=== PATIENT | male | born 1970 | race Caucasian/White ===

== ENCOUNTER 2020-01-25 15:44 | Outpatient (CLI) | payer OTHER, SELFPAY ==
[2020-01-27 06:44] LABS: SARS-CoV-2 RNA PCR Negative
== END 2020-01-25 15:45 | disposition home or self-care (01) ==
LOC: CHSLAB 15:55
PROVIDERS: PCP Family Medicine; Visit Provider Family Medicine
DX: Z20.828 Contact with and (suspected) exposure to other viral communicable diseases (principal)
CPT/HCPCS: 87635; C9803; U0003

== ENCOUNTER 2020-02-09 14:33 | Outpatient (CLI) | payer OTHER, SELFPAY ==
[2020-02-09 15:26] LABS: SARS-CoV-2 Ag Negative (Negative)
== END 2020-02-09 14:34 | disposition home or self-care (01) ==
LOC: CHSLAB 14:35
PROVIDERS: PCP Family Medicine; Visit Provider Family Medicine
DX: Z20.828 Contact with and (suspected) exposure to other viral communicable diseases (principal)
CPT/HCPCS: 87426

== ENCOUNTER 2020-05-23 09:43 | Emergency (ER) | payer OTHER, SELFPAY ==
[2020-05-23 09:43] VITALS: BP 157/102; PULSE 67; RESP 16; TEMP 37; O2SAT 98
[2020-05-23] MEDS: ATROPINE SULFATE 1% OPHTH SOLN 5 ML BOTTLE 1 DROP EACH EYE (10:10)
[2020-05-23] MEDS: FLUORESCEIN SOD 1 MG/STRIP EACH EYE (10:10)
[2020-05-23] MEDS: TETRACAINE HCL 0.5% OPHTH SOLN 4 ML BTL 1 DROP EACH EYE (10:10)
[2020-05-23] MEDS: DACRIOSE EYE IRRIGATION 118 ML BOTTLE 10 ML EACH EYE (10:10)
--- NOTE | 2020-05-23 11:19 | ED.EYEPROB ---
HPI - Eye Problem General Source: patient and other (friend comes in with him ) Mode of arrival: ambulatory Limitations: no limitations History of Present Illness HPI Narrative: Patient comes in after watching welding yesterday with the naked eye. He has had Eye pain since he got up this am about 9am. This is described as burning with sensitivity to light. He believes it was precipitated by him watching welding yesterday. Nothing has made this discomfort better or worse at home. This is an ongoing discomfort. chief complaint: eye pain, eye redness and eye injury Onset (ago): minute(s) Onset description: sudden and other (with wakening) Duration: constant Eye Symptoms: burning, foreign body sensation and photophobia Place: work Mechanism: UV exposure Severity: moderate Severity scale (1-10): 5 If Pain, Quality: burning and aching Associated symptoms: none Treatments Prior to Arrival: irrigated eye and NSAID (tetracaine dropps, equal to a 4-5 drops, was used on sides) Related Data Home Medications Medication Instructions Recorded Confirmed amlodipine 10 mg PO DAILY 05/23/20 05/23/20 hydrocodone-acetaminophen 1 tablet PO PRN 05/23/20 05/23/20 Allergies Allergy/AdvReac Type Severity Reaction Status Date / Time Penicillins Allergy Unknown Verified 05/23/20 10:34 Review of Systems Review of Systems: ROS unobtainable: Yes unobtainable due to endotracheal tube Constitutional: Constitutional: Reports no additional constitutional complaints Eyes: Eyes: Reports no additional eye complaints ENT: Reports system reviewed and no additional complaints, except as documented Cardiovascular: Cardiovascular: Reports no additional cardiovascular complaints Respiratory: Respiratory: Reports no additional respiratory complaints Gastrointestinal: Gastrointestinal: Reports no additional gastrointestinal complaints Genitourinary: Genitourinary: Reports no additional male genitourinary complaints Musculoskeletal: Musculoskeletal: Reports no additional musculoskeletal complaints Integumentary/Breasts: Skin/Breast: Reports system reviewed and no additional complaints, except as docu Neurologic: Reports system reviewed and no additional complaints, except as documented Psychiatric: Psychiatric: Reports no additional psychiatric complaints Endocrine: Endocrine: Reports no additional endocrine complaints Hematologic/Lymphatic: Hematologic/Lymphatic: Reports no additional hematologic/lymphatic complaints Allergic/Immunologic: Allergic/Immunologic: Reports no additional allergic/immunologic complaints [facility] Surgical History Surgical History H/O hernia repair No significant past surgical history Family History Family History Mother CAD (coronary artery disease) Social History Social History (Updated 05/24/20 @ 01:43 by Rey Tovar MD) Smoking status: Never smoker Smokeless tobacco user: chewing tobacco Alcohol intake: never Substance use: never Substance use type: does not use and crack/cocaine Living arrangements: with family Occupation/Education: occupation Gender identity (if verbalized by the patient): Male Sexual Orientation (if Verbalized by the Patient): Straight or Heterosexual Exam Const: General: no acute distress and confusion Orientation/consciousness: patient oriented x3 HENMT: Head: normal to inspection and contusion Ears: external ears normal Face and sinus: normal facial exam Eyes: Direct Ophthalmoscopy: photophobia Other: conjunctivae inflamed bilaterally. I can see a small area on his retina that also appears inflamed. He has no significant uptake of dye with fluorescein exam. He did appear to have superficial corneal abrasions bilaterally. He confirmed to me that he had been rubbing his eyes. Neck: Neck: normal visual inspection Chest: Chest palpation & inspect
[2020-05-23] MEDS: ERYTHROMYCIN OPHTH OINTMENT 3.5 GM TUBE 1 APPLIC EACH EYE (11:33)
[2020-05-23 11:54] VITALS: BP 126/79; PULSE 65; RESP 14; O2SAT 100
== END 2020-05-23 12:04 | disposition home or self-care (01) ==
PROVIDERS: Emergency Provider Emergency Medicine; PCP Family Medicine
DX: H16.133 Photokeratitis, bilateral (principal); S05.00XA Injury of conjunctiva and corneal abrasion without foreign body, unspecified eye, initial encounter
CPT/HCPCS: 99283; A9270

== ENCOUNTER 2020-10-29 15:38 | Outpatient (CLI) | payer OTHER, SELFPAY ==
[2020-10-29 16:42] LABS: SARS-CoV-2 Ag Negative (Negative)
== END 2020-10-29 15:39 | disposition home or self-care (01) ==
PROVIDERS: PCP Family Medicine; Visit Provider Nurse Practitioner Family
DX: Z20.822 Contact with and (suspected) exposure to COVID-19 (principal)
CPT/HCPCS: 87426; C9803

== ENCOUNTER 2021-02-04 09:53 | Outpatient (CLI) | payer OTHER, SELFPAY ==
--- NOTE | 2021-02-04 11:00 | NEURO_ITS ---
Impression: # Complains of numbness of left hand. # Left evolving Carpal Tunnel Syndrome. # Left mild ulnar neuropathy. ` # Normal needle/EMG exam. Nerve Conduction Studies Anti Sensory Summary Table Stim Site NR Peak (ms) P-T Amp (?V) Site1 Site2 Delta-P (ms) Dist (cm) Morgan (m/s) Left Median Anti Sensory (2-3nd Digit) Wrist 3.0 58.3 Wrist 2-3nd Digit 3.0 14.0 47 Wrist 3.0 60.4 Wrist 2-3nd Digit 3.0 14.0 47 Left Radial Anti Sensory (Base 1st Digit) Wrist 2.0 47.3 Wrist Base 1st Digit 2.0 0.0 Left Ulnar Anti Sensory (5th Digit) Wrist 2.7 64.3 Wrist 5th Digit 2.7 14.0 52 Motor Summary Table Stim Site NR Onset (ms) O-P Amp (mV) Site1 Site2 Delta-0 (ms) Dist (cm) Morgan (m/s) Left Median Motor (Abd Poll Brev) Wrist 3.4 3.1 Elbow Wrist 4.7 30.0 64 Elbow 8.1 4.4 Left Ulnar Motor (Abd Dig Minimi) Wrist 2.3 4.7 A Elbow Wrist 5.7 30.0 53 A Elbow 8.0 4.0 B Elbow Wrist 4.5 26.0 58 B Elbow 6.8 5.0 F Wave Studies NR F-Lat (ms) L-R F-Lat (ms) Left Median (Mrkrs) (Abd Poll Brev) 29.18 Left Ulnar (Mrkrs) (Abd Dig Min) 29.73 EMG Side Muscle Nerve Root Ins Act Fibs Amp Dur Recrt Comment Left 1stDorInt Ulnar C8-T1 Nml Nml Nml Nml Nml Left Ext Indicis Radial (Post Int) C7-8 Nml Nml Nml Nml Nml Left Ext Digitorum Radial (Post Int) C7-8 Nml Nml Nml Nml Nml Left BrachioRad Radial C5-6 Nml Nml Nml Nml Nml Left PronatorTeres Median C6-7 Nml Nml Nml Nml Nml Left Abd Poll Brev Median C8-T1 Nml Nml Nml Nml Nml Left ABD Dig Min Ulnar C8-T1 Nml Nml Nml Nml Nml MTDD
== END 2021-02-04 09:54 | disposition home or self-care (01) ==
LOC: ANHNEURO 10:03
PROVIDERS: PCP Family Medicine; Visit Provider Family Medicine
DX: G56.22 Lesion of ulnar nerve, left upper limb (principal); G56.02 Carpal tunnel syndrome, left upper limb
CPT/HCPCS: 95886; 95909

== ENCOUNTER 2021-02-04 16:14 | Outpatient (CLI) | payer OTHER, SELFPAY ==
[2021-02-04 17:51] LABS: Influenza A QL RT-PCR Negative (Negative); Influenza B QL RT-PCR Negative (Negative); SARS-CoV-2 RNA PCR Positive (Negative)
== END 2021-02-04 16:15 | disposition home or self-care (01) ==
LOC: CHSLAB 16:19
PROVIDERS: PCP Family Medicine; Visit Provider Family Medicine
DX: U07.1 COVID-19 (principal); R05.9 Cough, unspecified
CPT/HCPCS: 87502; C9803; U0003; U0005

== ENCOUNTER 2021-02-08 16:08 | Outpatient (CLI) | payer OTHER, SELFPAY ==
[2021-02-08] MEDS: ACETAMINOPHEN 325 MG TABLET 650 MG PO (17:06)
[2021-02-08] MEDS: FAMOTIDINE 20 MG TABLET PO (17:06)
[2021-02-08] MEDS: diphenhydrAMINE HCl CAP 25 MG CAPSULE PO (17:06)
[2021-02-08 18:30] VITALS: BP 132/74; PULSE 88; RESP 20; TEMP 37.1; O2SAT 99
== END 2021-02-08 16:09 | disposition home or self-care (01) ==
PROVIDERS: PCP Family Medicine; Visit Provider Family Medicine
DX: U07.1 COVID-19 (principal); I10 Essential (primary) hypertension
CPT/HCPCS: A9270; J7050; M0243; Q0244

== ENCOUNTER 2021-04-12 12:20 | Outpatient (CLI) | payer OTHER, SELFPAY ==
[2021-04-12 14:11] LABS: Influenza A QL RT-PCR Positive (Negative); Influenza B QL RT-PCR Negative (Negative); SARS-CoV-2 RNA PCR Negative (Negative)
== END 2021-04-12 12:21 | disposition home or self-care (01) ==
LOC: CHSLAB 12:22
PROVIDERS: PCP Family Medicine; Visit Provider Family Medicine
DX: J00 Acute nasopharyngitis [common cold] (principal); Z20.822 Contact with and (suspected) exposure to COVID-19
CPT/HCPCS: 36415; 87081; 87502; 87880; C9803; U0003; U0005

== ENCOUNTER 2021-05-03 14:57 | Outpatient (CLI) | payer OTHER, SELFPAY ==
--- NOTE | ~2021-05-03 | XR_ITS ---
EXAMINATION: XR chest 2V DATE: 05/03/2021 15:12 INDICATION: Cough. TECHNIQUE: Frontal and lateral views of the chest were obtained. COMPARISON: None. FINDINGS: The chest demonstrates clear lungs without pneumonia, pleural effusion, or pneumothorax. Th e heart size is normal. IMPRESSION: 1. No acute cardiopulmonary disease. Reviewed, dictated and finalized at location A. BUILDER HELPER
== END 2021-05-03 14:58 | disposition home or self-care (01) ==
LOC: CHSIMG 14:58
PROVIDERS: PCP Family Medicine; Visit Provider Family Medicine
DX: R05.9 Cough, unspecified (principal)
CPT/HCPCS: 71046

== ENCOUNTER 2021-07-05 14:30 | Outpatient (CLI) | payer OTHER, SELFPAY ==
[2021-07-05 14:56] LABS: Basophils Absolute Auto 0.05 K/mm3 (0.00-0.10); Basophils Percent Auto 0.9 % (0.0-1.0); Eosinophils Absolute Auto 0.18 K/mm3 (0.02-0.50); Eosinophils Percent Auto 3.1 % (1.0-6.0); Hematocrit 41.2 % (40.0-54.0); Hemoglobin 13.2 g/dL (14.0-18.0); Immature Granulocyte Absolute 0.01 K/mm3 (0.00-0.00); Immature Granulocyte Percent A 0.2 % (0.0-0.0); Lymphocytes Absolute Auto 1.59 K/mm3 (1.10-4.50); Lymphocytes Percent Auto 27.1 % (18.0-42.0); Mean Corpuscular Hemoglobin 29.9 pg (27.0-31.0); Mean Corpuscular Volume 93.2 fL (78.0-102.0); Monocytes Absolute Auto 0.63 K/mm3 (0.10-0.90); Monocytes Percent Auto 10.7 % (2.0-11.0); Neutrophils Absolute Auto 3.4 K/mm3 (1.7-7.2); Platelet Count Result 375 K/mm3 (150-420); Red Blood Count 4.42 M/mm3 (4.70-6.10); Red Cell Distribution Width 13.5 % (11.6-14.4); White Blood Count 5.9 K/mm3 (4.8-10.8)
[2021-07-05 15:00] LABS: Add Urine Microscopic? NO; Appearance Urine Clear (Clear); Bilirubin Urine Negative (Negative); Blood Urine Negative (Negative); Color Urine Yellow (Yellow); Glucose Urine UA Negative (Negative); Ketones Urine Negative (Negative); Leukocyte Esterase Ur Negative (Negative); Nitrate Urine Negative (Negative); Protein Urine Negative (Negative); Urobilinogen Urine 0.2 mg/dL (0.2-1.0)
[2021-07-05 15:07] LABS: Creatinine Urine 192.17 mg/dL (40-278); MALB Creatinine Ratio 8.6 mg/g (0-30); Microalbumin Urine Random 16.7 mg/L
[2021-07-05 15:36] LABS: Alanine Aminotransferase 25 U/L (16-63); Albumin Level 3.6 g/dL (3.4-5.0); Alkaline Phosphatase 103 U/L (46-116); Anion Gap 6 mmol/L (8-16); Aspartate Amino Transferase 18 U/L (15-37); Bilirubin,Total 0.3 mg/dL (0.00-1.00); Blood Urea Nitrogen 8 mg/dL (7-18); Calcium 8.9 mg/dL (8.5-10.1); Carbon Dioxide 30 mmol/L (21-32); Chloride 102 mmol/L (98-108); Estimated Glomerular Filt Rate > 60; Glucose 98 mg/dL (70-99); Osmolality Calculated 284 mOsm/kg (285-295); Potassium 3.8 mmol/L (3.5-5.1); Sodium 138 mmol/L (136-145); Total Protein 7.4 g/dL (6.4-8.2)
== END 2021-07-05 14:31 | disposition home or self-care (01) ==
LOC: CHSLAB 14:31
PROVIDERS: PCP Family Medicine; Visit Provider Family Medicine
DX: I10 Essential (primary) hypertension (principal)
CPT/HCPCS: 36415; 80053; 81003; 82043; 84443; 85025

== ENCOUNTER 2021-07-19 12:53 | Outpatient (CLI) | payer OTHER, SELFPAY | END 2021-07-19 12:54 | disposition home or self-care (01) | LOC: CHSCARD 12:57 | PROVIDERS: PCP Family Medicine; Visit Provider Family Medicine | DX: R06.2 Wheezing (principal) | CPT/HCPCS: 94060; 94726; 94729 ==

== ENCOUNTER 2022-03-21 11:28 | Outpatient (CLI) | payer OTHER, SELFPAY ==
--- NOTE | ~2022-03-21 | XR_ITS ---
EXAMINATION:XR cervical spine 4-5V DATE: 03/21/2022 11:52 INDICATION: Neck pain TECHNIQUE: AP, lateral, bilateral oblique, lateral swimmers and odontoid views of the cervical spine are provided. COMPARISON: None FINDINGS: Alignment is normal. The odontoid process is intact. No fracture is identified. Vertebral b yazmin heights are maintained. There is mild loss of intervertebral disc space height at C5-6. Preverteb ral soft tissues are normal. IMPRESSION: 1. Mild cervical spondylosis without acute findings. Reviewed, dictated and finalized at location B. ASSOCIATE
== END 2022-03-21 11:29 | disposition home or self-care (01) ==
LOC: CHSIMG 11:29
PROVIDERS: PCP Family Medicine; Visit Provider Family Medicine
DX: M54.2 Cervicalgia (principal); M43.02 Spondylolysis, cervical region
CPT/HCPCS: 72050

== ENCOUNTER 2022-07-07 13:20 | Outpatient (CLI) | payer OTHER, SELFPAY ==
[2022-07-07 13:44] LABS: Amphetamine Screen Urine Negative (Negative); Barbiturate Screen Urine Negative (Negative); Benzodiazepines Screen Urine Negative (Negative); Cannabinoid Screen Urine Negative (Negative); Cocaine Screen Urine Negative (Negative); Methadone Screen Urine Negative (Negative); Opiate Screen Urine Negative (Negative); Phencyclidine Screen Urine Negative (Negative)
== END 2022-07-07 13:21 | disposition home or self-care (01) ==
LOC: CHSLAB 13:23
PROVIDERS: PCP Family Medicine; Visit Provider Family Medicine
DX: Z79.891 Long term (current) use of opiate analgesic (principal)
CPT/HCPCS: 80307

== ENCOUNTER 2022-12-12 21:43 | Emergency (ER) | payer OTHER, SELFPAY ==
--- NOTE | ~2022-12-12 | XR_ITS ---
EXAMINATION: XR chest 2V DATE: 12/12/2022 22:19 INDICATION: Left anterior chest pain. TECHNIQUE: Frontal and lateral views of the chest were obtained. COMPARISON: Chest 2 views 05/03/2021 FINDINGS: A calcified right lung nodule is consistent with old granulomatous disease. There is no pne umonia, pleural effusion, or pneumothorax. The heart size is normal. IMPRESSION: 1. No acute cardiopulmonary disease. Reviewed, dictated and finalized at location E.
--- NOTE | 2022-12-12 21:45 | ECG_ITS ---
Measurements Intervals [place] Rate: 100 P: 79 SC: 188 QRS: -22 QRSD: 82 T: 123 QT: 350 QTc: 451 Interpretive Statements SINUS TACHYCARDIA LEFT ATRIAL ENLARGEMENT [-0.15mV P-WAVE IN V1/V2] LOW QRS VOLTAGE IN PRECORDIAL LEADS [QRS DEFLECTION < 1.0 mV IN CHEST LEADS] POSSIBLE RIGHT VENTRICULAR CONDUCTION DELAY [RSR (QR) IN V1/V2] POSSIBLE ANTERIOR MYOCARDIAL INFARCTION , PROBABLY OLD [30 ms Q WAVE IN V3/V4, OR R < 0.2 mV IN V4] ABNORMAL ECG NO PREVIOUS ECG AVAILABLE FOR COMPARISON Electronically Signed On 12-13-2022 8:36:27 CDT by Holden Briggs M.D.
[2022-12-12 21:47] VITALS: PULSE 104; RESP 18; TEMP 36.3; O2SAT 96
--- NOTE | 2022-12-12 21:56 | ED.CHESTPAIN ---
HPI - Chest Pain General Chief Complaint: Chest Pain Stated Complaint: Chest Pain Time Seen by Provider: 12/12/22 21:45 Source: patient, family and EMS Mode of arrival: EMS Limitations: no limitations History of Present Illness HPI narrative: Patient is a 52-year-old male with left-sided chest pain after being handcuffed by police this evening. Police were at his house arresting him and he started to have some chest pain and got diaphoretic. EMS was called and patient was given oxygen and Zofran and nitroglycerin and the episode subsided. Patient is here in the emergency room for evaluation of the chest pain. He also has reproducible chest pain for his left shoulder and chest wall pain. patient got aspirin with EMS. MD complaint: chest pain and chest discomfort Pertinent past history: other ( No CAD or prior MIs) Onset (ago): hour(s) (1) Timing of current episode: episodic Prior episodes: No Onset: during exertion Pain location: left chest Pain radiation: left shoulder Severity: moderate ( resolved at time emergency room; pain on episode was 4/10) Quality: sharp and burning Relieving factors: nitroglycerin and other (oxygen; removal of handcuffs pulling on the left shoulder) Exacerbating factors: stress Treatment prior to arrival: aspirin, nitroglycerin and oxygen Risk Factors Coronary artery disease risk factors: hypertension Thoracic aortic dissection risk factors: none Related Data Home Medications Medication Instructions Recorded Confirmed amlodipine 10 mg tablet 10 mg PO DAILY 05/23/20 12/12/22 Allergies Allergy/AdvReac Type Severity Reaction Status Date / Time Penicillins Allergy Unknown Verified 05/23/20 10:34 Sulfa (Sulfonamide Allergy Unknown Verified 12/12/22 21:46 Antibiotics) Review of Systems Review of Systems: All systems reviewed & are unremarkable except as noted in HPI and below Constitutional: Constitutional: Reports no additional constitutional complaints Eyes: Eyes: Reports no additional eye complaints ENT: Reports system reviewed and no additional complaints, except as documented Cardiovascular: Cardiovascular: Reports no additional cardiovascular complaints Respiratory: Respiratory: Reports no additional respiratory complaints Gastrointestinal: Gastrointestinal: Reports no additional gastrointestinal complaints Genitourinary: Genitourinary: Reports no additional male genitourinary complaints Musculoskeletal: Musculoskeletal: Reports no additional musculoskeletal complaints Integumentary/Breasts: Skin/Breast: Reports system reviewed and no additional complaints, except as docu Neurologic: Reports system reviewed and no additional complaints, except as documented Psychiatric: Psychiatric: Reports no additional psychiatric complaints Endocrine: Endocrine: Reports no additional endocrine complaints Hematologic/Lymphatic: Hematologic/Lymphatic: Reports no additional hematologic/lymphatic complaints Allergic/Immunologic: Allergic/Immunologic: Reports no additional allergic/immunologic complaints PMFSH Surgical History Surgical History H/O hernia repair No significant past surgical history Family History Family History Mother CAD (coronary artery disease) Social History Social History Smoking status: Never smoker Smokeless tobacco user: chewing tobacco Alcohol intake: never Substance use: never Substance use type: does not use and crack/cocaine Living arrangements: with family Occupation/Education: occupation Gender identity (if verbalized by the patient): Male Sexual Orientation (if Verbalized by the Patient): Straight or Heterosexual Exam Const: General: healthy appearing Nutritional Appearance: well nourished Orientation/consciousness: patient oriented x3 HENMT: Head: normal
[2022-12-12 22:08] LABS: Basophils Absolute Auto 0.06 K/mm3 (0.00-0.10); Basophils Percent Auto 0.8 % (0.0-1.0); Eosinophils Absolute Auto 0.05 K/mm3 (0.02-0.50); Eosinophils Percent Auto 0.6 % (1.0-6.0); Hemoglobin 13.5 g/dL (14.0-18.0); Immature Granulocyte Absolute 0.02 K/mm3 (0.00-0.00); Immature Granulocyte Percent A 0.3 % (0.0-0.0); Lymphocytes Absolute Auto 1.51 K/mm3 (1.10-4.50); Lymphocytes Percent Auto 18.9 % (18.0-42.0); Mean Corpuscular HGB Conc 32.1 g/dL (32.0-36.0); Mean Corpuscular Hemoglobin 29.1 pg (27.0-31.0); Mean Corpuscular Volume 90.5 fL (78.0-102.0); Monocytes Absolute Auto 0.57 K/mm3 (0.10-0.90); Monocytes Percent Auto 7.2 % (2.0-11.0); Neutrophils Absolute Auto 5.8 K/mm3 (1.7-7.2); Neutrophils Percent Auto 72.2 % (50.0-70.0); Platelet Count Result 419 K/mm3 (150-420); Red Blood Count 4.64 M/mm3 (4.70-6.10); Red Cell Distribution Width 13.8 % (11.6-14.4)
[2022-12-12 22:22] LABS: D Dimer 0.26 mg/L (0.19-0.50); Partial Thromboplastin Time 26.3 SEC (23.90-30.70); Prothrombin Time 11.1 Seconds (9.50-12.10)
[2022-12-12 22:29] LABS: Alanine Aminotransferase 21 U/L (16-63); Albumin Level 3.4 g/dL (3.4-5.0); Alkaline Phosphatase 94 U/L (46-116); Anion Gap 9 mmol/L (8-16); Aspartate Amino Transferase 12 U/L (15-37); Bilirubin,Total 0.2 mg/dL (0.00-1.00); Blood Urea Nitrogen 6 mg/dL (7-18); Calcium 8.9 mg/dL (8.5-10.1); Carbon Dioxide 24 mmol/L (21-32); Chloride 106 mmol/L (98-108); Estimated CRCL calculation 97 ml/min; Estimated Glomerular Filt Rate > 60; Glucose 139 mg/dL (70-99); Lipase 16 U/L (16-77); NT Pro B Type Natriuretic Pept 57 pg/mL (0-125); Osmolality Calculated 287 mOsm/kg (285-295); Potassium 3.4 mmol/L (3.5-5.1); Sodium 139 mmol/L (136-145); Troponin I 54.2 ng/L (0.00-60.4)
[2022-12-12 22:44] VITALS: BP 144/74
[2022-12-12] MEDS: POTASSIUM CHLORIDE 20 MEQ ER TABLET PO (22:52)
[2022-12-12 23:34] VITALS: BP 120/76; PULSE 89; RESP 18; O2SAT 99
[2022-12-13 00:28] LABS: Troponin I 61.4 ng/L (0.00-60.4)
[2022-12-13] MEDS: MORPHINE SULFATE (*CRX) 2 MG/ML INJ IV PUSH (00:54)
--- NOTE | 2022-12-13 04:35 | PC.NURSE ---
Report given to Hilda GARCIA at [facility], Pt accepted to room 729 bed 1. [facility] declined transfer @ 1217. [facility] was contacted @ 0154 f9or transfer.
[2022-12-13 05:00] VITALS: BP 129/93; PULSE 79; RESP 18; TEMP 36.4; O2SAT 98
== END 2022-12-13 05:00 | disposition short-term general hospital (02) ==
PROVIDERS: Emergency Provider Emergency Medicine; PCP Family Medicine
DX: R07.9 Chest pain, unspecified (principal); F17.220 Nicotine dependence, chewing tobacco, uncomplicated
CPT/HCPCS: 36415; 71046; 80053; 83690; 83735; 83880; 84484; 85025; 85380; 85610; 85730; 93005; 96374; 99285; A9270; J2270

== ENCOUNTER 2023-04-05 01:20 | Emergency (ER) | payer OTHER, SELFPAY ==
[2023-04-05 01:24] VITALS: BP 150/97; PULSE 75; RESP 20; TEMP 36.6; O2SAT 98
--- NOTE | 2023-04-05 01:44 | ED.GENADULT ---
HPI - General Adult General Chief complaint: Upper Respiratory Infection Stated complaint: Cough/Ear Ache Time Seen by Provider: 04/05/23 01:25 History of Present Illness HPI narrative: Jonas presented to the ED with pain in his frontal sinuses, worse when leaning forward as well as a sense of fullness in his ears. There is no CP, dyspnea, or fevers reported. He recently finished a Z pack but symptoms became worse. He is allergic to sulfa and penicillin. Related Data Home Medications Medication Instructions Recorded Confirmed amlodipine 10 mg tablet 10 mg PO DAILY 05/23/20 04/05/23 Allergies Allergy/AdvReac Type Severity Reaction Status Date / Time Penicillins Allergy Unknown Verified 05/23/20 10:34 Sulfa (Sulfonamide Allergy Unknown Verified 12/12/22 21:46 Antibiotics) Review of Systems Review of Systems: All systems reviewed & are unremarkable except as noted in HPI and below PMFSH Surgical History Surgical History H/O hernia repair No significant past surgical history Family History Family History Mother CAD (coronary artery disease) Social History Social History Smoking status: Never smoker Smokeless tobacco user: chewing tobacco Alcohol intake: never Substance use: never Substance use type: does not use and crack/cocaine Living arrangements: with family Occupation/Education: occupation Gender identity (if verbalized by the patient): Male Sexual Orientation (if Verbalized by the Patient): Straight or Heterosexual Exam Const: General: cooperative, healthy appearing, comfortable, no acute distress, well developed, alert, awake and Physically active Orientation/consciousness: oriented to person, oriented to place and oriented to time HENMT: Head: normal to inspection, normocephalic and atraumatic Ears: hearing grossly normal bilaterally and external ears normal Face/Nose/Sinus: Normal external nose present Other: frontal sinuses are TTP. External ear canal wnl bilaterally. TM within normal limits bilaterally Eyes: General: appearance normal, both eyes and all related structures Periorbital: periorbital findings normal Sclera: sclerae normal Pupils: Equal, round and reactive pupils present Neck: Neck: normal visual inspection Chest: Chest palpation & inspection: normal inspection of the chest Resp: Effort & Inspection: normal respiratory effort, able to speak in complete sentences and no respiratory distress Auscultation: clear to auscultation bilaterally Cardio: Jugular venous distension: no JVD Rate: regular rate Rhythm: regular rhythm GI: Inspection: normal to inspection GI Palp: Yes Soft to palpation Auscultation: normal bowel sounds Skin: General skin exam: normal color and no rashes or lesions noted Neuro: General: oriented to person, oriented to place and oriented to time Cranial nerves: Yes Equal, round and reactive pupils present Extrem: General: normal to inspection Course Vital Signs Vital signs: Vital Signs Temperature 98 F 04/05/23 01:24 Pulse Rate 75 04/05/23 01:24 Respiratory Rate 20 04/05/23 01:24 Blood Pressure 150/97 H 04/05/23 01:24 Pulse Oximetry 98 04/05/23 01:24 Oxygen Delivery Room Air 04/05/23 01:24 Temperature 98 F 04/05/23 01:24 Pulse Rate 75 04/05/23 01:24 Respiratory Rate 20 04/05/23 01:24 Blood Pressure 150/97 H 04/05/23 01:24 Pulse Oximetry 98 04/05/23 01:24 Oxygen Delivery Room Air 04/05/23 01:24 Medical Decision Making Vital Signs Vital Signs: Vital Signs Temperature 98 F 04/05/23 01:24 Pulse Rate 75 04/05/23 01:24 Respiratory Rate 20 04/05/23 01:24 Blood Pressure 150/97 H 04/05/23 01:24 Pulse Oximetry 98 04/05/23 01:24 Oxygen Delivery Room Air 04/05/23 01:24 Temperature 98 F
[2023-04-05 01:50] VITALS: BP 137/86; PULSE 78; RESP 18; O2SAT 97
== END 2023-04-05 01:53 | disposition home or self-care (01) ==
PROVIDERS: Emergency Provider Family Medicine; PCP Family Medicine
DX: J32.9 Chronic sinusitis, unspecified (principal); F17.220 Nicotine dependence, chewing tobacco, uncomplicated
CPT/HCPCS: 99283

== ENCOUNTER 2023-08-17 19:59 | Emergency (ER) | payer OTHER, SELFPAY ==
--- NOTE | ~2023-08-17 | CT_ITS ---
EXAMINATION: CT lumbar spine wo con DATE: 08/17/2023 20:27 INDICATION: left-sided radiculopathy X 5 DAYS/NO TRAUMA . TECHNIQUE: Computed tomography (CT) of the lumbar spine was performed without intravenous contrast. A utomated exposure control and iterative reconstruction technique were employed. The dose-length produ ct was 1511.44 mGy-cm. COMPARISON: None. FINDINGS: 5 nonrib-bearing lumbar-type vertebral bodies. Pedicles intact. Normal vertebral body align ment. Vertebral body heights preserved. Mild anterior wedge deformity at the thoracolumbar junction i s likely physiologic. Multilevel mild degenerative disc disease and facet arthropathy. Implant reserv oir in the left pelvis. IMPRESSION: No acute fracture or traumatic malalignment in the lumbar spine. No severe central canal or neural fo raminal narrowing. Reviewed, dictated and finalized at location K. IMPRESSION: No acute fracture or traumatic malalignment in the lumbar spine. No severe cent ral canal or neural foraminal narrowing.
[2023-08-17 20:03] VITALS: BP 153/95; PULSE 95; RESP 18; TEMP 36.4; O2SAT 98
--- NOTE | 2023-08-17 20:03 | ED.GENADULT ---
HPI - General Adult General Chief complaint: Back Pain/Injury Stated complaint: back pain Time Seen by Provider: 08/17/23 20:03 As per history of present illness. [facility] was reviewed. . History of Present Illness HPI narrative: history of present illness: Informant is patient. Chief complaint of low back pain with radiation into the left leg. Patient reports he has got a known bulging disc, he has had problems for several years. He says for the past 5 days the symptoms have flared up or is having more pain shooting down his left leg. He denies any loss of bowel or bladder control. He has had no saddle numbness. Problem located low back with radiation into the left lower extremity. It is like radiculopathy. Has occurred before the patient feels like it is a bit worse tonight. Patient does have somebody to drive him if he receives a pain shot. Moderate severity. Patient feels it is caused by a herniated lumbar disc. Movement does make it worse. Associated symptoms: No reported cough or fever. Related Data Home Medications Medication Instructions Recorded Confirmed amlodipine 10 mg tablet 10 mg PO DAILY 05/23/20 08/17/23 Allergies Allergy/AdvReac Type Severity Reaction Status Date / Time doxycycline Allergy Swelling Verified 08/17/23 20:03 Penicillins Allergy Unknown Verified 05/23/20 10:34 Sulfa (Sulfonamide Allergy Unknown Verified 12/12/22 21:46 Antibiotics) Review of Systems Review of Systems: REVIEW OF SYSTEMS- constitutional: No fevers, no chills, no sweats eye: No recent visual problems ENT: No ear pain, no nasal congestion, no sore throat respiratory: No shortness of breath, no cough cardiovascular: No chest pain, no palpitations, no syncope gastrointestinal: No nausea, no vomiting, no diarrhea alyson/lymph: No bruising tendency, no swollen lymph glands endocrine: No excessive thirst, no excessive hunger muscle skeletal: Complaining of low back pain with radiation into the left hip and leg. integumentary: No rash, no pruritus, no abrasions neurologic: Alert and oriented x4 psychiatric: No anxiety, no depression PMFSH Surgical History Surgical History H/O hernia repair No significant past surgical history Family History Family History Mother CAD (coronary artery disease) Social History Social History Smoking status: Never smoker Smokeless tobacco user: chewing tobacco Alcohol intake: never Substance use: never Substance use type: does not use and crack/cocaine Living arrangements: with family Occupation/Education: occupation Gender identity (if verbalized by the patient): Male Sexual Orientation (if Verbalized by the Patient): Straight or Heterosexual Exam Narrative: PHYSICAL EXAM- General: Alert oriented, well nourished, no acute distress eye: PERRL, EOMI, Normal conjunctiva HENT: Normocephalic, clear tympanic membranes, normal hearing, normal oral mucosa, no scleral icterus, no sinus tenderness neck: Supple, nontender, no carotid bruits, no JVD, no lymphadenopathy lungs: Clear to auscultation, respirations nonlabored heart: Normal rate, regular rhythm, no murmur, no gallop, no edema abdomen: Soft, nontender, nondistended, normal bowel sounds, no masses muscle skeletal: Lumbar spine/ back examined in there is no redness or sign of rash or shingles, he has got strong dorsalis pedis pulses in both feet, straight leg raising is suggestive on the left. skin: Skin is warm /dry /pink, no rashes, no lesions neurologic: Awake, alert and oriented x4, CN I-XII intact psychiatric: Cooperative, appropriate mood and affect Medical Decision Making MDM Narrative Medical decision making narrative: . . . . Radiology: CT Scan Report
[2023-08-17 20:05] VITALS: BP 153/95; PULSE 95; RESP 16; TEMP 36.2; O2SAT 98
[2023-08-17] MEDS: KETOROLAC 30 MG/ML VIAL (*BKC) IM (20:16)
[2023-08-17] MEDS: traMADol HCL (*CRX) 50 MG TABLET PO (21:02)
[2023-08-17 21:25] VITALS: BP 135/85; PULSE 85; RESP 18; O2SAT 99
== END 2023-08-17 21:25 | disposition home or self-care (01) ==
PROVIDERS: Emergency Provider Emergency Medicine; PCP Family Medicine
DX: M54.30 Sciatica, unspecified side (principal); M51.36 Other intervertebral disc degeneration, lumbar region; M51.37 Other intervertebral disc degeneration, lumbosacral region; Z79.899 Other long term (current) drug therapy
CPT/HCPCS: 72131; 96372; 99284; A9270; J1885

== ENCOUNTER 2023-11-14 03:16 | Emergency (ER) | payer OTHER, SELFPAY ==
--- NOTE | ~2023-11-14 | CT_ITS ---
EXAMINATION: CT abdomen pelvis wo con DATE: 11/14/2023 03:51 INDICATION: Right lower quadrant abdominal pain. TECHNIQUE: Computed tomography (CT) of the abdomen and pelvis was performed without intravenous contr ast. Automated exposure control and iterative reconstruction technique were employed. The dose-length product was 1080.12 mGy-cm. COMPARISON: None. FINDINGS: The visualized portions of lung bases demonstrate minimal atelectasis. A calcified right emelyn ng nodule is consistent with old granulomatous disease. No pleural effusion. The heart size is normal . No pericardial effusion. There is a 4 mm cyst in the liver. The gallbladder, spleen, pancreas, adre nal glands, and left kidney are normal. There is mild right hydronephrosis. There is a 4 mm stone in proximal right ureter. A penile prosthesis is noted. There is diverticulosis of the colon without serena dence of diverticulitis. The appendix is normal. There are no dilated loops of bowel. There are no pa thologically enlarged lymph nodes. There is no free intraperitoneal fluid. There is mild thoracic and lumbar spondylosis. There is a chronic compression fracture of T11. IMPRESSION: 1. 4 mm stone in proximal right ureter with mild right hydronephrosis. Reviewed, dictated and finalized at location A.
[2023-11-14 03:16] VITALS: BP 165/102; PULSE 76; RESP 24; TEMP 36.2; O2SAT 100
--- NOTE | 2023-11-14 03:21 | ED.ABDPAIN ---
HPI - Abdominal Pain General Chief Complaint: Urogenital-Male Stated Complaint: Right Flank pain Time Seen by Provider: 11/14/23 03:21 Source: patient Mode of arrival: ambulatory Limitations: no limitations History of Present Illness HPI narrative: Patient is a 53-year-old male with a 4 hour history of right lower quadrant pain. The pain starts around the right flank and comes around to the right belly button. Associated nausea. Pain is sharp. Patient has all of his internal organs present. No history of kidney stones. MD elicited complaint: abdominal pain Pertinent past history: other ( Hypertension) Onset (ago): hour(s) (4) Pain Consistency: constant Location: RLQ and R flank Severity: moderate Pain scale (0-10): 7 Quality: sharp Radiation: RLQ and R flank Migration to: other ( umbilicus and groin on the right) Exacerbating factors: nothing Relieving factors: nothing Associated symptoms: nausea Related Data Home Medications Medication Instructions Recorded Confirmed amlodipine 10 mg tablet 10 mg PO DAILY 05/23/20 11/14/23 Allergies Allergy/AdvReac Type Severity Reaction Status Date / Time doxycycline Allergy Swelling Verified 08/17/23 20:03 Penicillins Allergy Unknown Verified 05/23/20 10:34 Sulfa (Sulfonamide Allergy Unknown Verified 12/12/22 21:46 Antibiotics) Review of Systems Review of Systems: All systems reviewed & are unremarkable except as noted in HPI and below Constitutional: Constitutional: Reports no additional constitutional complaints Eyes: Eyes: Reports no additional eye complaints ENT: Reports system reviewed and no additional complaints, except as documented Cardiovascular: Cardiovascular: Reports no additional cardiovascular complaints Respiratory: Respiratory: Reports no additional respiratory complaints Gastrointestinal: Gastrointestinal: Reports no additional gastrointestinal complaints Genitourinary: Genitourinary: Reports no additional male genitourinary complaints Musculoskeletal: Musculoskeletal: Reports no additional musculoskeletal complaints Integumentary/Breasts: Skin/Breast: Reports system reviewed and no additional complaints, except as docu Neurologic: Reports system reviewed and no additional complaints, except as documented Psychiatric: Psychiatric: Reports no additional psychiatric complaints Endocrine: Endocrine: Reports no additional endocrine complaints Hematologic/Lymphatic: Hematologic/Lymphatic: Reports no additional hematologic/lymphatic complaints Allergic/Immunologic: Allergic/Immunologic: Reports no additional allergic/immunologic complaints PMFSH Surgical History Surgical History H/O hernia repair No significant past surgical history Family History Family History Mother CAD (coronary artery disease) Social History Social History Smoking status: Never smoker Smokeless tobacco user: chewing tobacco Alcohol intake: never Substance use: never Substance use type: does not use and crack/cocaine Living arrangements: with family Occupation/Education: occupation Gender identity (if verbalized by the patient): Male Sexual Orientation (if Verbalized by the Patient): Straight or Heterosexual Exam Const: General: ill appearing Nutritional Appearance: well nourished Orientation/consciousness: patient oriented x3 HENMT: Head: normal to inspection Ears: external ears normal Face/Nose/Sinus: Normal external nose present Eyes: Conjunctivae: conjunctivae normal Pupils: Equal, round and reactive pupils present EOM: EOMs intact bilaterally Neck: Neck: normal visual inspection Chest: Chest palpation & inspection: normal inspection of the chest Resp: Effort & Inspection: normal respiratory effort and not labored Auscultation: clear to auscultation bilat
--- NOTE | 2023-11-14 03:24 | PC.NURSE ---
Dr Robles at the bedside. Rissa GARCIA placing IV line.
[2023-11-14] MEDS: SODIUM CHLORIDE 0.9% IV 1,000 ML 999 ML IV CONT (03:35)
[2023-11-14] MEDS: MORPHINE SULFATE (*CRX) 2 MG/ML INJ 4 MG IV PUSH (03:35)
[2023-11-14] MEDS: ONDANSETRON INJ 4 MG/2 ML VIAL IV PUSH ×2 (03:35→06:00)
--- NOTE | 2023-11-14 03:41 | PC.NURSE ---
patient being transported to ct via wheelchair
--- NOTE | 2023-11-14 03:46 | PC.NURSE ---
patient returned from ct via wheel chair. call light in reach. daughter at the bedside
[2023-11-14 03:53] LABS: Basophils Absolute Auto 0.08 K/mm3 (0.00-0.10); Basophils Percent Auto 0.5 % (0.0-1.0); Eosinophils Absolute Auto 0.08 K/mm3 (0.02-0.50); Eosinophils Percent Auto 0.5 % (1.0-6.0); Hematocrit 45.9 % (40.0-54.0); Hemoglobin 15.4 g/dL (14.0-18.0); Immature Granulocyte Absolute 0.07 K/mm3 (0.00-0.00); Immature Granulocyte Percent A 0.4 % (0.0-0.0); Immature Platelet Fraction Pct 1.2 % (1.0-7.0); Lymphocytes Absolute Auto 1.42 K/mm3 (1.10-4.50); Mean Corpuscular HGB Conc 33.6 g/dL (32-36); Mean Corpuscular Hemoglobin 29.9 pg (27.0-31.0); Mean Corpuscular Volume 89.1 fL (78.0-102.0); Mean Platelet Volume 8.7 fl (8.7-11.0); Monocytes Absolute Auto 0.87 K/mm3 (0.10-0.90); Monocytes Percent Auto 5.5 % (2.0-11.0); Neutrophils Absolute Auto 13.31 K/mm3 (1.70-7.20); Neutrophils Percent Auto 84.1 % (50.0-70.0); Platelet Count Result 573 K/mm3 (150-420); Red Blood Count 5.15 M/mm3 (4.70-6.10); Red Cell Distribution Width 13.2 % (11.6-14.4); White Blood Count 15.8 K/mm3 (4.8-10.8)
--- NOTE | 2023-11-14 03:55 | PC.NURSE ---
patient reports that the pain medication is helping his flank pain. 09/15 at this time
[2023-11-14 04:11] LABS: Partial Thromboplastin Time 27.1 Sec (23.9-30.70); Prothrombin Time 10.7 Seconds (9.50-12.1)
--- NOTE | 2023-11-14 04:14 | PC.NURSE ---
patient ambulated to bathroom to give urine sample.
--- NOTE | 2023-11-14 04:18 | PC.NURSE ---
urine taken to lab. hematuria noted in urine
[2023-11-14 04:25] LABS: Color Urine Light Red (Yellow)
[2023-11-14 04:26] LABS: Add Urine Microscopic? YES; Appearance Urine Cloudy (Clear); Bilirubin Urine Negative (Negative); Blood Urine 3+ (Negative); Glucose Urine UA Negative (Negative); Ketones Urine 2+ (Negative); Leukocyte Esterase Ur Negative LEU/UL (Negative); Nitrate Urine Negative (Negative); Protein Urine Negative (Negative); RBC Urine >75 /hpf (0-2); Squamous Epithelial Cell Urine None seen /hpf (Few); Urobilinogen Urine 0.2 mg/dL (0.2-1.0); WBC Urine 0-3 /hpf (0-3); pH Urine 8.5 (5.0-8.0)
[2023-11-14 04:27] LABS: Bacteria Urine None seen /hpf
[2023-11-14 04:48] LABS: Lactic Acid Reflex 1.7 mmol/L (0.7-2.0)
--- NOTE | 2023-11-14 04:51 | PC.NURSE ---
patient appears to be sleeping. resp even and unlabored. call light in reach. daughter in the waiting room charging her cell phone. girlfriend has left the building.
[2023-11-14 05:15] LABS: Alanine Aminotransferase 44 U/L (6-50); Albumin Level 4.6 g/dL (3.5-5.1); Alkaline Phosphatase 95 U/L (38-126); Anion Gap 15 mmol/L (4-12); Aspartate Amino Transferase 49 U/L (17-59); Bilirubin,Total 0.9 mg/dL (0.2-1.3); Blood Urea Nitrogen 11 mg/dL (9-20); Calcium 9.4 mg/dL (8.4-10.2); Carbon Dioxide 23 mmol/L (22-30); Chloride 99 mmol/L (98-107); Estimated CRCL calculation 101 ml/min; Estimated Glomerular Filt Rate > 60; Glucose 158 mg/dL (65-110); Lipase 51 U/L (23-300); Osmolality Calculated 286 mOsm/kg (285-295); Potassium 3.9 mmol/L (3.4-5.0); Sodium 137 mmol/L (137-145)
--- NOTE | 2023-11-14 05:24 | PC.NURSE ---
patient is resting on stretcher. appears to be sleeping. currently waiting on ct results to post. daughter in the waiting room charging her phone. girlfriend has not returned
--- NOTE | 2023-11-14 05:55 | PC.NURSE ---
patient reports an increase in pain to right flank. verbal order received and placed into computer.
[2023-11-14] MEDS: MORPHINE SULFATE (*CRX) 4 MG/ML INJ IV PUSH (06:00)
--- NOTE | 2023-11-14 06:04 | PC.NURSE ---
patient is aware that ct results have not posted yet at this time
[2023-11-14 06:16] VITALS: BP 136/86; PULSE 71; RESP 18; O2SAT 97
[2023-11-14] MEDS: TAMSULOSIN HCL 0.4 MG CAPSULE PO (06:20)
[2023-11-14] MEDS: KETOROLAC 30 MG/ML VIAL (*BKC) IV PUSH (06:21)
--- NOTE | 2023-11-14 06:34 | PC.NURSE ---
patient was given strainer and education on how to use strainer. patient was also given specimen cup in case he caught a kidney stone, to take it to pcp or urologist.
== END 2023-11-14 06:38 | disposition home or self-care (01) ==
PROVIDERS: Emergency Provider Emergency Medicine; PCP Family Medicine
DX: N20.1 Calculus of ureter (principal); Z79.899 Other long term (current) drug therapy
CPT/HCPCS: 36415; 74176; 80053; 81001; 83605; 83690; 85025; 85055; 85610; 85730; 96361; 96374; 96375; 96376; 99284; A9270; J1885; J2270; J2405; J7030

== ENCOUNTER 2023-11-15 01:30 | Emergency (ER) | payer OTHER, SELFPAY ==
--- NOTE | 2023-11-15 01:35 | ED_ITS ---
HPI - Alcohol General Chief Complaint: Urogenital-Male Stated Complaint: kidney stone Time Seen by Provider: 11/15/23 01:34 Source: patient Mode of arrival: ambulatory Limitations: no limitations History of Present Illness HPI narrative: 53-year-old male with a history of hypertension presented to the ED 24 hours ago for right flank pain. He was noted to have a forehead mm stone in the right proximal ureter. He received Flomax and his prescription was sent to the pharmacy for [facility]. 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 He presents to the ED with ongoing right flank pain which radiates to his groin. No nausea/ vomiting. No dysuria or hematuria. Related Data Home Medications Medication Instructions Recorded Confirmed amlodipine 10 mg tablet 10 mg PO DAILY 05/23/20 11/14/23 Allergies Allergy/AdvReac Type Severity Reaction Status Date / Time doxycycline Allergy Swelling Verified 08/17/23 20:03 Penicillins Allergy Unknown Verified 05/23/20 10:34 Sulfa (Sulfonamide Allergy Unknown Verified 12/12/22 21:46 Antibiotics) [facility] Surgical History Surgical History H/O hernia repair No significant past surgical history Family History Family History Mother CAD (coronary artery disease) Social History Social History Smoking status: Never smoker Smokeless tobacco user: chewing tobacco Alcohol intake: never Substance use: never Substance use type: does not use and crack/cocaine Living arrangements: with family Occupation/Education: occupation Gender identity (if verbalized by the patient): Male Sexual Orientation (if Verbalized by the Patient): Straight or Heterosexual Discharge Plan Discharge Prescriptions: No Action tamsulosin [Flomax] 0.4 mg capsule 0.4 mg PO DAILY Qty: 30 0RF hydrocodone-acetaminophen 5-325 mg tablet 1 tablet PO Q6H PRN (Reason: pain) Qty: 30 0RF Rx Instructions: 1-2 tabs per dose amlodipine 10 mg tablet 10 mg PO DAILY Follow-up/Referrals: Nohemi,Mahendra Negron DO [Primary Care Provider] -
[2023-11-15 01:37] VITALS: BP 163/110; PULSE 86; RESP 16; TEMP 36.1; O2SAT 100
--- NOTE | 2023-11-15 01:39 | PC.NURSE ---
Dr Neumann at the bedside
--- NOTE | 2023-11-15 01:46 | ED.MALEGU ---
HPI - Male Genitourinary General Chief complaint: Urogenital-Male Stated complaint: kidney stone Time Seen by Provider: 11/15/23 01:34 Source: patient Mode of arrival: ambulatory Limitations: no limitations History of Present Illness HPI Narrative: 53-year-old male with a history of hypertension presented to the ED 24 hours ago for right flank pain. The patient had a positive UA and went on to have a CT of the abdomen which revealed a right proximal ureter stone measuring 4 mm. He had a BUN /creatinine of 11/0.8. He was prescribed Flomax and Butler. The patient was unable to picker and packer his prescription for Butler. He presents to the ED with ongoing right flank pain radiating to his groin. No fever or chills. No dysuria or hematuria. Onset (ago): day(s) ( One day) Duration: intermittent Location: right flank Radiation: right inguinal region Severity: severe Quality: aching Relieving factors: none Exacerbating factors: none Associated symptoms: Reports denies other symptoms Related Data Home Medications Medication Instructions Recorded Confirmed amlodipine 10 mg tablet 10 mg PO DAILY 05/23/20 11/14/23 Allergies Allergy/AdvReac Type Severity Reaction Status Date / Time doxycycline Allergy Swelling Verified 08/17/23 20:03 Penicillins Allergy Unknown Verified 05/23/20 10:34 Sulfa (Sulfonamide Allergy Unknown Verified 12/12/22 21:46 Antibiotics) Review of Systems Review of Systems: All systems reviewed & are unremarkable except as noted in HPI and below Constitutional: Constitutional: Reports as per HPI and Reports no additional constitutional complaints Eyes: Eyes: Reports as per HPI and Reports no additional eye complaints ENT: Reports system reviewed and no additional complaints, except as documented Cardiovascular: Cardiovascular: Reports as per HPI and Reports no additional cardiovascular complaints Respiratory: Respiratory: Reports as per HPI and Reports no additional respiratory complaints Gastrointestinal: Gastrointestinal: Reports as per HPI and Reports no additional gastrointestinal complaints Genitourinary: Comments: right flank pain radiating to his groin Musculoskeletal: Musculoskeletal: Reports no additional musculoskeletal complaints and Reports as per HPI Integumentary/Breasts: Skin/Breast: Reports system reviewed and no additional complaints, except as docu and Reports as per HPI Neurologic: Reports system reviewed and no additional complaints, except as documented and Reports as per HPI Psychiatric: Psychiatric: Reports no additional psychiatric complaints and Reports as per HPI Endocrine: Endocrine: Reports no additional endocrine complaints and Reports as per HPI Hematologic/Lymphatic: Hematologic/Lymphatic: Reports no additional hematologic/lymphatic complaints and Reports as per HPI [facility] Surgical History Surgical History H/O hernia repair No significant past surgical history Family History Family History Mother CAD (coronary artery disease) Social History Social History Smoking status: Never smoker Smokeless tobacco user: chewing tobacco Alcohol intake: never Substance use: never Substance use type: does not use and crack/cocaine Living arrangements: with family Occupation/Education: occupation Gender identity (if verbalized by the patient): Male Sexual Orientation (if Verbalized by the Patient): Straight or Heterosexual Exam Narrative: blood pressure is 163/110. Temperature 36.1?. Oxygen saturation of 100% on room air. Const: Limitations: no limitations HENMT: Head: normal to inspection Face/Nose/Sinus: Normal external nose present Face and sinus: normal facial exam Mouth: Yes Normal oral and palatal mucosa present Throat: posterior oropharynx normal Eyes: Con
[2023-11-15] MEDS: HYDROmorphone HCL INJ (*CRX) 2 MG/ML VIAL 0.5 MG IM (01:51)
[2023-11-15] MEDS: ONDANSETRON HCL ODT 4 MG TABLET PO (01:52)
[2023-11-15] MEDS: TAMSULOSIN HCL 0.4 MG CAPSULE PO (01:52)
--- NOTE | 2023-11-15 01:58 | PC.NURSE ---
patient is resting on stretcher. medicated per MAY. call light in reach
--- NOTE | 2023-11-15 02:29 | PC.NURSE ---
patient reports that pain is starting to improve after the dilaudid
[2023-11-15 02:30] VITALS: BP 156/102; PULSE 98; RESP 18; O2SAT 97
== END 2023-11-15 02:30 | disposition home or self-care (01) ==
PROVIDERS: Emergency Provider Internal Medicine Critical Care Medicine; PCP Family Medicine
DX: N20.1 Calculus of ureter (principal); I10 Essential (primary) hypertension; Z79.899 Other long term (current) drug therapy
CPT/HCPCS: 96372; 99283; A9270; J1170

== ENCOUNTER 2023-12-11 01:31 | Emergency (ER) | payer OTHER, SELFPAY ==
[2023-12-11] VITALS (8 sets, daily range): BP systolic 123–189; BP diastolic 70–119; PULSE 68–82; RESP 14–18; TEMP 36.2; O2SAT 96–100
--- NOTE | ~2023-12-11 | CT_ITS ---
Non-contrast CT scan of the Abdomen and Pelvis Clinical indication: Right flank pain Technique: 2.5 mm axial scans were obtained through the abdomen and pelvis without intravenous or or al contrast. Dose reduction technique was used on this scan by utilizing automated exposure control a nd iterative reconstruction technique. The dose-length product (DLP) was 996.89 mGy-cm. Findings: Images through the lung bases reveal calcified right basilar granuloma. There is a 5 mm stone at the right UVJ, with mild right hydroureteronephrosis. No left renal or left ureteral stone. No left hydronephrosis. The liver, spleen, pancreas, gallbladder, and adrenals appear normal. There is no aortic aneurysm. There is no evidence of bowel obstruction. Images through the pelvis were performed. There is no evidence of ascites or lymphadenopathy. Urinary bladder otherwise unremarkable. Prostate gland mildly enlarged. Impression: 5 mm right UVJ stone, with mild right hydroureteronephrosis. Reviewed, dictated and finalized at [facility]. Impression: 5 mm right UVJ stone, with mild right hydroureteronephrosis.
--- NOTE | 2023-12-11 01:52 | ED.BACK ---
HPI - Back Pain/Injury General Chief Complaint: Urogenital-Male Stated Complaint: right sided flank pain Source: patient Mode of arrival: ambulatory Limitations: no limitations History of Present Illness HPI Narrative: this is a 53-year-old male who presents with right flank pain started earlier today has a history of kidney stones currently there is no nausea vomiting does have dysuria no hematuria no fever chills. MD elicited complaint: back pain Pertinent past history: prior back pain Onset (ago): hour(s) Timing: constant Severity: severe Pain scale (0-10): 9 Quality: sharp Related Data Home Medications Medication Instructions Recorded Confirmed amlodipine 10 mg tablet 10 mg PO DAILY 05/23/20 12/11/23 Allergies Allergy/AdvReac Type Severity Reaction Status Date / Time doxycycline Allergy Swelling Verified 12/11/23 01:37 Penicillins Allergy Unknown Verified 12/11/23 01:37 Sulfa (Sulfonamide Allergy Unknown Verified 12/11/23 01:37 Antibiotics) Review of Systems Review of Systems: All systems reviewed & are unremarkable except as noted in HPI and below PMFSH Past Medical History Medical History Ureteric stone Surgical History Surgical History H/O hernia repair No significant past surgical history Family History Family History Mother CAD (coronary artery disease) Social History Social History Smoking status: Never smoker Smokeless tobacco user: chewing tobacco Alcohol intake: never Substance use: never Substance use type: does not use and crack/cocaine Living arrangements: with family Occupation/Education: occupation Gender identity (if verbalized by the patient): Male Sexual Orientation (if Verbalized by the Patient): Straight or Heterosexual Exam Const: General: no acute distress Nutritional Appearance: well nourished Limitations: no limitations Neck: Neck: normal visual inspection Chest: Chest palpation & inspection: normal inspection of the chest Resp: Effort & Inspection: normal respiratory effort Auscultation: clear to auscultation bilaterally Cardio: Rate: regular rate Rhythm: regular rhythm GI: GI Palp: Yes Soft to palpation Auscultation: normal bowel sounds Skin: General skin exam: normal color Neuro: General: patient oriented x3 and moves all extremities Extrem: General: normal to inspection and no clubbing, cyanosis or edema Course Course Emergency Course: Should received IV fluids a and 30mg IV Toradol Zofran. . Marked CT scan obtained and reviewed Vital Signs Vital signs: Vital Signs Temperature 36.2 C L 12/11/23 01:37 Pulse Rate 75 12/11/23 01:37 Respiratory Rate 18 12/11/23 01:37 Blood Pressure 189/119 H 12/11/23 01:37 Pulse Oximetry 100 12/11/23 01:37 Oxygen Delivery Room Air 12/11/23 01:37 Temperature 36.2 C L 12/11/23 01:41 Pulse Rate 68 12/11/23 06:24 Respiratory Rate 16 12/11/23 06:24 Blood Pressure 144/81 H 12/11/23 06:24 Pulse Oximetry 96 12/11/23 06:24 Oxygen Delivery Room Air 12/11/23 06:24 MDM - Back Pain/Injury Lab Data 12/11/23 02:02 12/11/23 02:02 Labs: Lab Results 12/11/23 Range/Units 02:02 WBC 14.0 H (4.8-10.8) K/mm3 RBC 4.73 (4.70-6.10) M/mm3 Hgb 14.1 (14.0-18.0) g/dL Hct 42.8 (40.0-54.0) % MCV 90.5 (78.0-102.0) fL MCH 29.8 (27.0-31.0) pg MCHC 32.9 (32-36) g/dL RDW 13.2 (11.6-14.4) % Plt Count 433 H (150-420) K/mm3 MPV 8.7 (8.7-11.0) fl Immature Gran % (Auto) 0.4 H (0.0-0.0) % Neut % (Auto) 84.2 H (50.0-70.0) % Lymph % (Auto) 8.5 L (18.0-42.0) % Carver % (Auto) 6.0 (2.0-11.0) % Eos % (Auto) 0.3 L (1.0-6.0) % Baso % (Auto) 0.6 (0.0-1.0) % Lymph # (Auto) 1
[2023-12-11 02:05] LABS: Basophils Absolute Auto 0.08 K/mm3 (0.00-0.10); Basophils Percent Auto 0.6 % (0.0-1.0); Eosinophils Absolute Auto 0.04 K/mm3 (0.02-0.50); Eosinophils Percent Auto 0.3 % (1.0-6.0); Hematocrit 42.8 % (40.0-54.0); Hemoglobin 14.1 g/dL (14.0-18.0); Immature Granulocyte Absolute 0.05 K/mm3 (0.00-0.00); Immature Granulocyte Percent A 0.4 % (0.0-0.0); Lymphocytes Absolute Auto 1.19 K/mm3 (1.10-4.50); Lymphocytes Percent Auto 8.5 % (18.0-42.0); Mean Corpuscular HGB Conc 32.9 g/dL (32-36); Mean Corpuscular Hemoglobin 29.8 pg (27.0-31.0); Mean Corpuscular Volume 90.5 fL (78.0-102.0); Mean Platelet Volume 8.7 fl (8.7-11.0); Monocytes Absolute Auto 0.84 K/mm3 (0.10-0.90); Neutrophils Absolute Auto 11.81 K/mm3 (1.70-7.20); Neutrophils Percent Auto 84.2 % (50.0-70.0); Platelet Count Result 433 K/mm3 (150-420); Red Blood Count 4.73 M/mm3 (4.70-6.10); Red Cell Distribution Width 13.2 % (11.6-14.4)
[2023-12-11] MEDS: ONDANSETRON INJ 4 MG/2 ML VIAL IV PUSH (02:05)
[2023-12-11] MEDS: KETOROLAC 30 MG/ML VIAL (*BKC) IV PUSH (02:05)
[2023-12-11 02:06] LABS: Add Urine Microscopic? YES; Appearance Urine Clear (Clear); Bilirubin Urine Negative (Negative); Blood Urine 2+ (Negative); Color Urine Light Yellow (Yellow); Glucose Urine UA Negative (Negative); Ketones Urine Negative (Negative); Leukocyte Esterase Ur Negative LEU/UL (Negative); Nitrate Urine Negative (Negative); Protein Urine Negative (Negative); Urobilinogen Urine 0.2 mg/dL (0.2-1.0)
[2023-12-11] MEDS: SODIUM CHLORIDE 0.9% IV 1,000 ML 999 ML IV CONT (02:09)
[2023-12-11 02:13] LABS: Bacteria Urine 1+ /hpf; Squamous Epithelial Cell Urine None seen /hpf (Few); WBC Urine 0-3 /hpf (0-3)
[2023-12-11 02:21] LABS: Alanine Aminotransferase 26 U/L (16-63); Albumin Level 3.6 g/dL (3.4-5.0); Alkaline Phosphatase 103 U/L (46-116); Anion Gap 10 mmol/L (4-12); Aspartate Amino Transferase 19 U/L (15-37); Bilirubin,Total 0.3 mg/dL (0.00-1.00); Blood Urea Nitrogen 16 mg/dL (7-18); Calcium 8.8 mg/dL (8.5-10.1); Carbon Dioxide 28 mmol/L (21-32); Chloride 101 mmol/L (98-108); Estimated CRCL calculation 73 ml/min; Estimated Glomerular Filt Rate 58; Glucose 132 mg/dL (70-99); Osmolality Calculated 291 mOsm/kg (285-295); Potassium 3.6 mmol/L (3.5-5.1); Sodium 139 mmol/L (136-145); Total Protein 7.7 g/dL (6.4-8.2)
== END 2023-12-11 06:59 | disposition home or self-care (01) ==
PROVIDERS: Emergency Provider Emergency Medicine
DX: N20.1 Calculus of ureter (principal)
CPT/HCPCS: 36415; 74176; 80053; 81001; 85025; 96361; 96374; 96375; 99284; J1885; J2405; J7030

== ENCOUNTER 2024-06-07 14:23 | Emergency (ER) | payer MEDICARE, MEDICAID, SELFPAY ==
--- NOTE | ~2024-06-07 | XR_ITS ---
EXAMINATION: XR elbow LT min 3V DATE: 06/07/2024 14:51 INDICATION: 304 months of nontraumatic left elbow pain TECHNIQUE: Anteroposterior, two oblique and lateral views of the left elbow were obtained. COMPARISON: None. FINDINGS: Alignment is normal. No fracture or joint effusion. Joint spaces are normal. No osteochondral lesions or erosions. Couple tiny heterotopic ossicles near the tip of the coronoid process which could repre sent degenerative loose bodies or heterotopic ossicles related to chronic soft tissue injury. 3 mm me tallic foreign body projecting over the subcutaneous fat at the radial aspect of the proximal forearm . Soft tissues are otherwise unremarkable. Soft tissues are unremarkable. IMPRESSION: 1. No left elbow joint effusion or osseous abnormality. 2. Tiny foreign body in the subcutaneous fat at the radial aspect of the proximal left forearm. Reviewed, dictated and finalized at location A. IMPRESSION: 1. No left elbow joint effusion or osseous abnormality. 2. Tiny foreign body in the subcutaneous fat at the radial aspect of the proxim al left forearm.
--- NOTE | 2024-06-07 14:24 | ED.UPPEXIN ---
HPI - Extremity Injury (Upper) General Chief Complaint: Extremity Problem,Nontraumatic Stated Complaint: ELBOW PAIN Time Seen by Provider: 06/07/24 14:24 Source: patient Mode of arrival: ambulatory Limitations: no limitations History of Present Illness HPI narrative: patient is a 53-year-old male with a left elbow pain on the medial aspect. This has been going on for few months. No particular injury but he has been moving a lot of structural items at his house doing remodeling. complaint: injury to: left and elbow ( Medially) Onset (ago): month(s) ( 2-3) Other injuries: none Place: home Severity: moderate Severity scale (1-10): 5 Relieving factors: immobilization Exacerbating factors: movement of extremity Context: other ( patient has left elbow pain medially for the past couple of months without definite injury) Associated symptoms: denies other symptoms Treatments prior to arrival: other ( none) Related Data Home Medications ?Medication ?Instructions ?Recorded ?Confirmed ?Last Taken ?Type amlodipine 10 mg tablet 10 mg PO DAILY 05/23/20 12/11/23 Unknown History Allergies Allergy/AdvReac Type Severity Reaction Status Date / Time doxycycline Allergy Swelling Verified 06/07/24 14:46 Penicillins Allergy Unknown Verified 06/07/24 14:46 Sulfa (Sulfonamide Allergy Unknown Verified 06/07/24 14:46 Antibiotics) Review of Systems Review of Systems: All systems reviewed & are unremarkable except as noted in HPI and below Constitutional: Constitutional: Reports no additional constitutional complaints Eyes: Eyes: Reports no additional eye complaints ENT: Reports system reviewed and no additional complaints, except as documented Cardiovascular: Cardiovascular: Reports no additional cardiovascular complaints Respiratory: Respiratory: Reports no additional respiratory complaints Gastrointestinal: Gastrointestinal: Reports no additional gastrointestinal complaints Genitourinary: Genitourinary: Reports no additional male genitourinary complaints Musculoskeletal: Musculoskeletal: Reports no additional musculoskeletal complaints Integumentary/Breasts: Skin/Breast: Reports system reviewed and no additional complaints, except as docu Neurologic: Reports system reviewed and no additional complaints, except as documented Psychiatric: Psychiatric: Reports no additional psychiatric complaints Endocrine: Endocrine: Reports no additional endocrine complaints Hematologic/Lymphatic: Hematologic/Lymphatic: Reports no additional hematologic/lymphatic complaints Allergic/Immunologic: Allergic/Immunologic: Reports no additional allergic/immunologic complaints [facility] Past Medical History Medical History Ureteric stone Surgical History Surgical History H/O hernia repair No significant past surgical history Family History Family History Mother CAD (coronary artery disease) Social History Social History Smoking status: Never smoker Smokeless tobacco user: chewing tobacco Alcohol intake: never Substance use: never Substance use type: does not use and crack/cocaine Living arrangements: with family Occupation/Education: occupation Gender identity (if verbalized by the patient): Male Sexual Orientation (if Verbalized by the Patient): Straight or Heterosexual Exam Const: General: healthy appearing Nutritional Appearance: well nourished Orientation/consciousness: patient oriented x3 Limitations: no limitations HENMT: Head: normal to inspection Ears: external ears normal Face/Nose/Sinus: Normal external nose present Eyes: Conjunctivae: conjunctivae normal Pupils: Equal, round and reactive pupils present EOM: EOMs intact bilaterally Neck: Neck: normal visual inspection Chest: Chest palpation & inspection: normal inspection of the chest Resp: Effort & Inspection: normal respiratory effort and not labored Auscultation: clear to auscultation bilaterally and no crackles Cardio: Rate: regular rate Rhythm: regular rhythm Heart sounds: no murmurs GI: Inspection: non-distended GI Palp: Yes Soft to palpation and No Tenderness to palpation present (GI) Auscultation: normal bowel sounds : General: Yes bladder normal to palpation Back/Spine/Pelvis: Back: no CVA tenderness Skin: General skin exam: normal color Rashes: no rashes Wounds: no wounds Neuro: General: patient oriented x3 Cranial nerves: Yes Nystagmus not present Speech: normal speech Gait exam (Neuro): Normal gait present Extrem: General: normal to inspection Other: tender left medial aspect of the epicondyle area of the elbow Psych: Mental Status: mental status grossly normal Affect: normal affect Attitude: cooperative Course Vital Signs Vital signs: Vital Signs Oxygen Delivery Room Air 06/07/24 14:23 Temperature 36.6 C 06/07/24 15:38 Pulse Rate 74 06/07/24 15:38 Respiratory Rate 16 06/07/24 15:38 Blood Pressure 150/106 H 06/07/24 15:38 Pulse Oximetry 99 06/07/24 15:38 Oxygen Delivery Room Air 06/07/24 15:38 MDM - Extremity Injury (Upper) MDM Narrative Medical decision making narrative: patient is a 53-year-old male with a left elbow medial aspect pain for the past few months. We will do an x-ray. 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) Discharge Plan Discharge Clinical Impression: Epicondylitis elbow, medial Qualifiers: Laterality: left Qualified Code(s): M77.02 - Medial epicondylitis, left elbow Patient Disposition: Home, Self-Care Condition: Stable Instructions: Golfer's Elbow (ED) Patient Language: Czech Prescriptions: New methylprednisolone [Medrol (Xavier)] 4 mg tablets,dose pack See Rx Instructions .ROUTE .COMPLEX Qty: 21 0RF Rx Instructions: orally per package directions No Action tamsulosin [Flomax] 0.4 mg capsule 0.4 mg PO DAILY Qty: 30 0RF Patient Comments: LD >WEEK AGO hydrocodone-acetaminophen 5-325 mg tablet 1 tablet PO Q6H PRN (Reason: pain) Qty: 30 0RF Rx Instructions: 1-2 tabs per dose nitrofurantoin monohyd/m-cryst [Macrobid] 100 mg capsule 100 mg PO Q12H 7 Days Qty: 14 0RF Rx Instructions: must administer with a meal/food amlodipine [Norvasc] 5 mg tablet 5 mg PO DAILY Qty: 7 0RF tamsulosin [Flomax] 0.4 mg capsule 0.4 mg PO DAILY Qty: 7 0RF oxycodone-acetaminophen [Percocet] 5-325 mg tablet 1 tablet PO Q6H PRN (Reason: pain) Qty: 20 0RF amlodipine 10 mg tablet 10 mg PO DAILY Patient Comments: HAS NOT FILLED SINCE OCTOBER Follow-up/Referrals: Jamal Macedo MD [Primary Care Provider] - Time of Disposition: 15:27
[2024-06-07 14:32] VITALS: BP 150/107; PULSE 93; RESP 16; TEMP 36.6; O2SAT 99
[2024-06-07 15:38] VITALS: BP 150/106; PULSE 74; RESP 16; TEMP 36.6; O2SAT 99
--- OUTSIDE RECORDS SUMMARY | 2024-06-07 15:47 | XMS_ITS | Clinical Summary ---
Author Organization [facility] Address [address] [place] [address] Phone Care Team Providers Care Hand Cloth Cutter Name Role Phone LATIA MCCARTHY, PARISA Primary Care Provider [phone] Reason for Visit and Chief Complaint [Patient Encounter] Plan of Treatment No Plan of Treatment Recorded Assessments Includes: Assessments from this encounter No Assessments Recorded Medical Equipment - Implanted Devices Includes: Current Devices No Medical Equipment Recorded Medications Includes: Medications discussed during this encounter and other current Medications Current Medications (continue as prescribed) amLODIPine Besylate 10 MG Oral Tablet 07/01/2023 Pro vider: PARISA JEFFERY MD Diagnosis: Last Documented On 07/02/2023 11:39AM By Gabi BONILLA ; [facility] Medications Administered Includes: Administered Medications from this encounter No Administered Medications Recorded Results Includes: Results discussed during this encounter No Results Recorded For Specified Dates History of Present Illness Includes: History of Present Illness from this encounter No History of Present Illness Recorded Social History No Social History Recorded - Smoking Status Unknown Medical History Includes: Medical History addressed during this encounter No Medical History Recorded Family History Includes: Family History addressed during this encounter No Family History Recorded Review of Systems Includes: Review of Systems from this encounter No Review of Systems Recorded Mental Status Includes: Mental Status from this encounter No Mental Status Recorded Functional Status Includes: Functional Status from this encounter No Functional Status Recorded Physical Exam Includes: Physical Exam from this encounter No Physical Exam Recorded Encounters Encounter Provider Location Date Check-In Time Check-Out Time Diagnosis [Patient Encounter] ANTONETTE AGEE APRN-FPA, [employer] 07/21/2022 10:56AM 11:59PM Insurance Includes: Active Insurance Policies No Insurance Coverage Recorded Guarantor Relationship Effective Dates Guarantor Ph one TEGAN MAYFIELD Self [id number] Clinical Notes Includes: Clinical Notes from this encounter No Clinical Notes Recorded
--- OUTSIDE RECORDS SUMMARY | 2024-06-07 15:47 | XMS_ITS | Clinical Summary ---
Author Organization [facility] Address [address] [place] [address] Care Team Providers Care Wirer Passenger Car Name Role Phone Unknown, Notinfile Primary Care Provider Unavail able Allergies Active Allergy Reactions Criticality Noted Date Comments Penicillins Swelling Medium Throat and lips swelling Sulfa Swelling Medium 12/13/2022 Throat and lips swelling Medications ibuprofen (ADVIL,MOTRIN) 600 mg tablet Take 1 tablet (600 mg total) by mouth every 6 (six) hours as needed for pain 1 Active Narcan 4 mg/actuation spray,non-aerosol 1 Active acetaminophen (TYLENOL) 500 mg tabletIndications :Pain Take 1 tablet (500 mg total) by mouth every 6 (six) hours as needed for pain or headaches 3 Active albuterol HFA (PROVENTIL HFA,VENTOLIN HFA,PROAIR HFA) 90 mcg/actuation inhaler Inhale 2 puffs every 6 (six) hours as needed for shortness of breath or wheezing 1 each 2 4 Active guaiFENesin-codei ne (GUAITUSS AC) liquid 100-10 mg/5 mLIndications:Upp er respiratory tract infection, unspecified type Take 5-10 mL by mouth every 4 (four) hours as needed for cough 240 mL 4 Active lidocaine (LIDODERM) 5 % Place 1 patch on the skin daily Remove & discard patch within 12 hours or as directed by MD. 30 patch 4 Active amLODIPine (NORVASC) 10 mg tabletIndications :Primary hypertension Take 1 tablet (10 mg total) by mouth daily 90 tablet 1 4 10/20/19 25 Active HYDROcodone-aceta minophen (NORCO) 5-325 mg per tabletIndications :Pain Take 1 tablet by mouth every 6 (six) hours as needed for pain 6 tablet 4 Active Active Problems Problem Noted Date Diagnosed Date R pinky cellulitis with abscess 11/06/2023 Assessment & Plan (11/11/2023 5:18 PM CDT): Presented w/ 1d R pinky swelling/pain without trauma/systemic symptoms. CT hand showed cellulitis w/ abscess/fluid collection. [facility] ED attempted drainage but got no fluid return, transferred to [facility] for plastics evaluation. [facility] plastics team re-attempted I&D, also with minimal fluid return. His incision was packed with no plans for OR. He received tetanus prophylaxis. -vanc (11/05-), gram stain w/ rare GPCs, await speciation -wound management per plastics 11/06 -patient currently being managed for infected right SF for concern for septic joint with fluid collection on CT s/p attempted I and D at OSH, now s/p I&D in the ED weighted As per plastic surgery recommendations right hand and sling hang to gravity, elevated, nonweightbearing. Recommended to continue dressings t.i.d. soapy soaks, 1/4 inch packing, Adaptic, 4 x 4 , splint and Joe -s/p debridement bedside 11/06, splint reapplied by Plastic surgery team. -afebrile, resolved leukocytosis -on vancomycin day 3 for MRSA coverage -I and D culture from 11/04 grew Staphylococcus aureus pending sensitivities 11/07 -right hand swelling is improving, pain significantly improved -afebrile, resolved leukocytosis -on vancomycin day 4 11/08 Patient signed out AMA Started on doxycycline for MRSA coverage prior to securing wound culture sensitivities Splint applied prior to discharge Routine physical examination 04/01/2023 Need for enthubptvb-lcvoleu-qgaiettna (Tdap) vac cine 03/23/2023 Flu vaccine need 03/23/2023 Colon cancer screening 03/23/2023 Upper respiratory tract infection 03/23/2023 Prostate cancer screening 03/23/2023 Special screening for malignant neoplasms, colon 03/23/2023 Carpal tunnel syndrome of left wrist 04/24/2021 Guyon syndrome, 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 Assessment & Plan (03/23/2023 1:53 PM CVT TECH): Not at goal - has not had meds for a couple weeks - restart and monitor as able Update labs Other chronic pain 06/25/2017 Obesity (BMI 30-39.9) 06/25/2017 Resolved Problems Problem Noted Date Diagnosed Date Resolved Date Chest pain 12/13/2022 03/23/2023 Immunizations Immunization Administration Dates Next Due Influenza, Quadrivalent, Rec ombinant, Egg Free, Preservative Free, Intramuscular 02/05/2018 Influenza, Quadrivalent, Spl it, Preservative Free, Intramuscular 03/23/2023,12/15/2022(Deferred: Patient Refused - PT NO LONGER WANTS TO GET VACCINE),11/21/2019,02/09/2017 Influenza, Unspecified 02/05/2018 Td, adsorbed 11/25/2004 Tdap 11/06/2023,03/23/2023,01/30/2009 Surgical History Surgery Date Site/Laterality Comments KNEE SURGERY Left left knee arthroscopy FINGER SURGERY Right right ring finger was broken, no surgery was done HERNIA REPAIR FEMUR FRACTURE SURGERY as a kid Medical History Medical History Date Comments Knee pain Hypertension Arrhythmia Erectile dysfunction Back pain Anxiety Osteoarthritis Kidney stone unable to pass ( 2) yet Asthma Depression Family History Medical History Relation Name Comments Arthritis Mother Hypertension Mother Cancer Other Heart disease Other Stroke Other Relation Name Status Comments Mother Other Social History Tobacco Use Types Packs/Day Years Used Date Smoking Tobacco: Never Smokeless Tobacco: Current Chew Alcohol Use Standard Drinks/Week Comments Not Currently 0 (1 standard drink = 0.6 oz pur e alcohol) Social Connection and Isolat ion Panel [NHANES] Answer Date Recorded In a typical week, how many times do you talk on the phone with family, friends, or neighbors? More than three times a week 12/15/2022 How often do you get togethe r with friends or relatives? More than three times a week 12/15/2022 How often do you attend chur ch or synagogue services? Never 12/15/2022 Do you belong to any clubs o r organizations such as hindu groups, unions, fraternal or athletic groups, or school groups? No 12/15/2022 How often do you attend meet ings of the clubs or organizations you belong to? Never 12/15/2022 Are you , , di vorced, , never , or living with a partner? 12/15/2022 AUDIT-C Answer Date Recorded Q1: How often do you have a drink containing alcohol? Never 04/16/2023 Q2: How many drinks containi ng alcohol do you have on a typical day when you are drinking? Patient does not drink Q3: How often do you have si x or more drinks on one occasion? Never 04/16/2023 Overall Financial Resource Strain (CARDIA) Answe r Date Recorded How hard is it for you to pa y for the very basics like food, housing, medical care, and heating? Not hard at all 12/15/2022 PHQ-2 Answer Date Recorded PHQ-2 Total Score (If total score is 3 or more points, staff should administer the PHQ-9) 2 03/23/2023 Hunger Vital Sign Answer Date Recorded Within the past 12 months, y ou worried that your food would run out before you got the money to buy more. Never true 12/16/19 23 Within the past 12 months, t he food you bought just didn't last and you didn't have money to get more. Never true 12/15/2022 PRAPARE - Transportation Answer Date Re corded In the past 12 months, has l ack of transportation kept you from medical appointments or from getting medications? No 11/2022 In the past 12 months, has l ack of transportation kept you from meetings, work, or from getting things needed for daily living? No 12/15/2022 Housing Stability Vital Sign Answer Pantera e Recorded In the last 12 months, was t here a time when you were not able to pay the mortgage or rent on time? No 12/15/2022 In the last 12 months, how many places have you lived? 1 12/15/2022 In the last 12 months, was t here a time when you did not have a steady place to sleep or slept in a detention (including now)? No 12/15/2022 Personal Safety Answer Date Recorded Have you ever been in or are you currently in a harmful physical or emotional relationship or is someone making you feel afraid or unsafe? Denies 11/24/2023 Sex and Gender Information Value Date Recorded Sex Assigned at Not on file Legal Sex Male 3:13 AM CVT TECH Gender Identity Not on file Sexual Orientation Not on file Obstetrics History Last Filed Vital Signs Vital Sign Reading Time Taken Comments Blood Pressure 161/92 11/24/2023 6:11 PM CDT Pulse 85 11/24/2023 6:11 PM CDT Temperature 36.2 C (97.2 F) 11/24/2023 6:11 PM CDT Respiratory Rate 18 11/24/2023 6:11 PM CDT Oxygen Saturation 100% 11/24/2023 6:11 PM CDT Inhaled Oxygen Concentration - - Weight 97.1 kg (214 lb) 11/24/2023 6:11 PM CDT Height 180.3 cm (5' 11 ) 11/24/2023 6:11 PM CDT Body Mass Index 29.85 11/24/2023 6:11 PM CDT Plan of Treatment Health Maintenance Due Date Last Done Comments Hepatitis C Screening 1970 Prostate Cancer Screening-PSA 1970 Hepatitis B Screening 1990 Zoster Vaccine (1 of 2) 2022 Influenza Vaccine (#1) 2023 4, 11/21/2019, 02/05/2018, Additional history exists Depression Screening 03/23/2024 03/23/2023, 08/12/19 19 Regular Well Visit/Exam 18-64 03/23/2024 03/23/2023, 08/11/2018 Colon Cancer Screening-Colonoscopy 04/16/2033 04/16/2023 DTaP/Tdap/Td Vaccine (4 - Td or Tdap) 11/05/2033 11/06/2023, 03/23/2023, 01/30/2009, Additional history exists Pneumococcal vaccine <65 Aged Out No longer eligible based on patient's age to complete this topic Medical Devices Implanted Type Area Gynecological Assistant Device Identifier Shelf Expiration Date Model / Serial / Lot [employer] [id number] Ams 700 Kit Accessory Penile Prosthesis - Sna - [id number] Implanted:Qty : 1 on 05/10/2020 by Faustino Ojeda MD at [facility] Other - see comments N/A: Penis [place] [employer] Maya [id number] 02/06/2025 [id number] / NA / [id number] Description:IMPLANTABLE ACCE SSORY PARTS [employer] [id number] Conceal Low Profile [place] 100ml Prosthesis Inhibizone Sterile Latex Free - Sna - [id number] Implanted:Qty : 1 on 05/10/2020 by Faustino Ojeda MD at [facility] Other - see comments N/A: Penis [place] [employer] Maya [id number] 03/23/2022 [id number] / NA / [id number] [place] [employer] Maya [id number] Prosthesis Penile Ams 700cx Ms Pump 21cm Preconnect 2 Cyl - [id number] Implanted:Qty : 1 on 05/10/2020 by Faustino Ojeda MD at [facility] N/A: Penis [place] [employer] Maya [id number] 01/10/2022 [id number] / / [id number] Procedures Procedure Name Priority Date/Time Associated Diagnosis Comments COLONOSCOPY 04/16/2023 11:59 AM CVT TECH from Last 3 Months or Most Recently Relevant to Health Maintenance Results * COLONOSCOPY (04/16/2023 11:59 AM CVT TECH) Anatomical Region Laterality Modality Other Narrative Procedure Note Jesu Alves, - 04/16/2023 11:59 AM CST [facility] GI ENDOSCOPY Patient Name: Shakeel Hoyt Procedure Date: 04/16/2023 11:59 AM Date of : 1970 Admit Type: Outpatient Age: 52 Gender: Male Attending MD: Jesu Alves D.O. Room: [facility] ENDOSCOPY ROOM 05 Note Status: Finalized Procedure: Colonoscopy Indications: Screening for colorectal malignant neoplasm Referring MD: Mahendra Song D.O. Providers: Jesu Alves D.O. Medicines: See the Anesthesia note for documentation of the administered medications Complications: No immediate complications. Estimated Blood Loss: Estimated blood loss: none. Procedure: The benefits, risks and alternatives of theprocedure and sedation were discussed and informed consentwas obtained. All questions were answered. Please referto the signed informed consent document in the medical record. The scope was passed under direct vision.The CF-LW526R colonoscope was introduced through theanus and advanced to the cecum, identified byappendiceal orifice and ileocecal valve. The colonoscopy was performed without difficulty. The patient tolerated the procedure well. The quality of the bowel preparation was adequate. Prep was administered heidi split dose. Findings: The entire examined colon appeared normal on direct and retroflexion views. Impression: - The entire examined colon is normal on direct and retroflexion views. - No specimens collected. Recommendation: - Patient has a contact number available for emergencies. The signs and symptoms of potential delayed complications were discussed with thepatient. Return to normal activities tomorrow. Written discharge instructions were provided to thepatient. - Resume previous diet. - Continue present medications. - Repeat colonoscopy in 5 years for surveillance. Jesu Alves D.O. 04/16/2023 12:19:18 PM Number of Addenda: 0 Note Initiated On: 04/16/2023 11:59 AM Recognized by the [place] [employer] for promoting quality in endoscopy Jesu Alves DO ENDOSCOPY PROCEDURES Fin al Result from Last 3 Months or Most Recently Relevant to Health Maintenance Insurance [facility] AETNA BETTER [facility] Advance Directives For more information, please contact: [phone] * Full Code (Latest Code Status on File) Date Activated Date Inactivated Comments 11/06/2023 7:41 AM 11/09/2023 3:42 PM * Full Code Date Activated Date Inactivated Comments 12/13/2022 6:22 PM 12/15/2022 9:38 PM Care Teams Wirer Passenger Car Relationship Specialty Start Date End Date Unknown, Notinfile PCP - General 12/22/23
--- OUTSIDE RECORDS SUMMARY | 2024-06-07 15:47 | XMS_ITS | Referral Summary ---
Author Organization [facility] Address [address] [place] [address] Care Team Providers Care Cigar Head Puncher Name Role Phone Unknown, Notinfile Primary Care [...] CT hand showed cellulitis w/ abscess/fluid collection. [facility] ED attempted drainage but got no fluid return, transferred to [facility] for plastics evaluation. 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 Assessment & Plan (03/23/2023 1:53 PM TRACK CAR OPERATOR): Not at goal - has not had [...] Unspecified 02/05/2018 Td, adsorbed 11/25/2004 Tdap 11/06/2023,03/23/2023,01/30/2009 Social History Tobacco Use Types Packs/Day Years [...] often do you attend chur ch or confucianism services? Never 12/15/2022 Do you belong to any clubs o r organizations such as oriental orthodox groups, unions, fraternal or athletic groups, or [...] place to sleep or slept in a mcfp (including now)? No 12/15/2022 Personal Safety Answer Date Recorded Have you ever been in or are you currently in a harmful physical or emotional relationship or is someone making you feel afraid or unsafe? Denies 11/24/2023 Sex and Gender Information Value Date Recorded Sex Assigned at Not on file Legal Sex Male 3:13 AM TRACK CAR OPERATOR Gender Identity Not on file Sexual Orientation Not on file Last Filed Vital Signs Vital Sign Reading [...] 11/24/2023 6:11 PM CDT Plan of Treatment Not on file Medical Devices Implanted Type Area Center Manager Device Identifier Shelf Expiration Date Model / Serial / Lot [employer] [id number] Ams 700 Kit Accessory Penile Prosthesis - Sna - [id number] Implanted:Qty : 1 on 05/10/2020 by Faustino Ojeda MD at [facility] Other - see comments N/A: Penis [employer] Maya [id number] 02/06/2025 [id number] / NA / [id number] Description:IMPLANTABLE ACCE SSORY PARTS [employer] [id number] Conceal Low Profile [place] 100ml Prosthesis Inhibizone Sterile Latex Free - Sna - [id number] Implanted:Qty : 1 on 05/10/2020 by Faustino Ojeda MD at [facility] Other - see comments N/A: Penis [place] [employer] Maya [id number] 03/23/2022 [id number] / NA / [id number] [place] [employer] Maya [id number] Prosthesis Penile Ams 700cx Ms Pump 21cm Preconnect 2 Cyl - [id number] Implanted:Qty : 1 on 05/10/2020 by Faustino Ojeda MD at [facility] N/A: Penis [employer] [id number] 01/10/2022 [id number] Procedures Procedure Name Priority Date/Time Associated Diagnosis Comments COLONOSCOPY 04/16/2023 11:59 AM TRACK CAR OPERATOR from Last 3 Months or Most Recently Relevant to Health Maintenance Results * COLONOSCOPY (04/16/2023 11:59 AM TRACK CAR OPERATOR) Anatomical Region Laterality Modality Other Narrative Procedure Note Jesu Alves DO - 04/16/2023 11:59 AM CST [facility] GI ENDOSCOPY Patient Name: Shakeel Hoyt Procedure Date: 04/16/2023 11:59 AM Date of : 1970 Admit Type: Outpatient Age: 52 Gender: Male Attending MD: Jesu Alves D.O. Room: [facility] ENDOSCOPY ROOM 05 Note Status: Finalized Procedure: [...] The scope was passed under direct vision.The CF-AG157F colonoscope was introduced through theanus and advanced [...] On: 04/16/2023 11:59 AM Recognized by the [place] [employer] for promoting quality in endoscopy Jesu Alves DO ENDOSCOPY PROCEDURES Fin al Result from Last 3 Months or Most Recently Relevant to Health Maintenance Insurance AETNA BETTER [facility] AETNA [facility] Member Subscriber Plan / Payer (Ef fective 2020-Present) Name:Shakeel Hoyt Relation to Subscriber:Self Name:Shakeel Hoyt Payer ID:[id number] (NAIC) Group ID:Not on file Type:MEDICAID RISK OTHER Address: [facility] [id number] [place] [id number] Advance Directives For more information, please contact: [phone] * Full Code (Latest Code Status on File) Date Activated Date Inactivated Comments 11/06/2023 7:41 AM 11/09/2023 3:42 PM * Full Code Date Activated Date Inactivated Comments 12/13/2022 6:22 PM 12/15/2022 9:38 PM Care Teams Cigar Head Puncher Relationship Specialty Start Date End Date Unknown, Notinfile PCP - General 12/22/23
--- OUTSIDE RECORDS SUMMARY | 2024-06-07 15:47 | XMS_ITS | Clinical Summary ---
Author Organization [facility] Address [facility] [place] [address] Care Team Providers Care Chief Unit Forester Name Role Phone Jesu Alves DO Primary Care Provider [phone] Allergies Active Allergy Reactions Criticality Noted Date Comments Penicillins Swelling 03/24/2018 Lip and throat swelling Medications hydrocodone-lang taminophen 10-325 MG tablet Take 1 tablet by mouth 3 (three) times a day. 0 02/28/2018 Active Multiple Vitamins-Minera ls (EYE VITAMINS & MINERALS OR) Take 1 tablet by mouth daily. Active meloxicam 15 MG tablet Take 15 mg by mouth daily. Active amlodipine 10 MG tablet Take 10 mg by mouth daily. Active ALPRAZolam 1 MG tablet Take 1 mg by mouth nightly as needed for Sleep. Active hydrocodone-lang taminophen 5-325 MG tablet Take 1-2 tablets by mouth every 6 (six) hours as needed for Pain. 20 tablet 03/31/2018 Active Family History Medical History Relation Comments Hypertension Mother Relation Status Comments Daughter Alive Father Alive Mother Alive Son 1 Alive Son 2 Alive Social History Tobacco Use Types Packs/Day Years Used Date Smoking Tobacco: Never Smokeless Tobacco: Current Chew Alcohol Use Standard Drinks/Week Comments Yes 0 (1 standard drink = 0.6 oz pur e alcohol) 2 times a month Sex and Gender Information Value Date Recorded Sex Assigned at Not on file Legal Sex Male 5:05 PM CDT Gender Identity Not on file Sexual Orientation Not on file Last Filed Vital Signs Vital Sign Reading Time Taken Comments Blood Pressure 156/97 03/31/2018 11:47 AM ACID DIPPER Pulse 119 03/31/2018 11:47 AM ACID DIPPER Temperature 37.3 C (99.2 F) 03/31/2018 11:00 AM ACID DIPPER Respiratory Rate 20 03/31/2018 11:47 AM ACID DIPPER Oxygen Saturation 94% 03/31/2018 11:15 AM ACID DIPPER Inhaled Oxygen Concentration - - Weight 98.2 kg (216 lb 7.9 oz) 03/31/2018 7:45 A M ACID DIPPER Height 180.3 cm (5' 11 ) 03/24/2018 2:04 PM ACID DIPPER Body Mass Index 30.19 03/24/2018 2:04 PM ACID DIPPER Plan of Treatment Health Maintenance Due Date Last Done Comments Colorectal Cancer Screening Colonoscopy (10 Years) 1970 Annual Physical 06/15/1975 Hepatitis C 1990 DTaP, Tdap and Td Vaccines ( 1 - Tdap) 06/15/1991 Hepatitis B Vaccines (1 of 3 - 19+ 3-dose series) 06/15/1991 Zoster Vaccines (1 of 2) 2022 COVID-19 Vaccine ( - 2023-2 5 season) 2023 Meningococcal B Vaccine Aged Out No l onger eligible based on patient's age to complete this topic Meningococcal Vaccine Aged Out No tere sachin eligible based on patient's age to complete this topic Pneumococcal Vaccine: Pediat rics (0 to 5 Years) and At-Risk Patients (6 to 64 Years) Aged Out No longer eligible b ased on patient's age to complete this topic RSV Immunizations Under 20 Months Aged Out No longer eligible based on patient's age to complete this topic Medical Devices Implanted Type Area Gym Teacher Device Identifier Shelf Expiration Date Model / Serial / Lot Medium [place] With Strap Ventralex St Hernia Patch Implanted:Qty: 1 on 03/31/2018 by Siva Trejo MD at [facility] 01/04/2020 [id number] / / [id number] Insurance [employer] Care Teams Chief Unit Forester Relationship Specialty Start Date End Date Jesu Alves DO [address] [place] [address] PCP - General FAMILY PRACTICE 03/24/18
--- OUTSIDE RECORDS SUMMARY | 2024-06-07 15:47 | XMS_ITS | Encounter Summary ---
Author Organization [facility] Facility Care Team Providers Care Brick Kiln Worker Name Role Phone Jesu Alves DO Primary Care Provider + Ramana Stahl MD Primary Care Provide r Mahendra Song DO Primary Care Provider Unknown, Notinfile Primary Care Provider Unavail able Encounter Details Date Type Department Care Team (Latest Contact Info) Description 02/25/2018 Orders Only [facility] Provider, MD Huy [address] [place] [id number] Social History Tobacco Use Types Packs/Day Years Used Date Smoking Tobacco: Never Assessed Sex and Gender Information Value Date Recorded Sex Assigned at Not on file Legal Sex Male 3:13 AM PROJECT INTERNSHIP Gender Identity Not on file Sexual Orientation Not on file documented as of this encounter Plan of Treatment Not on file documented as of this encounter Procedures Procedure Name Priority Date/Time Associated Diagnosis Comments PROCEDURE - RESULT 02/25/2018 12 :00 AM PROJECT INTERNSHIP documented in this encounter Results * PROCEDURE - RESULT (02/25/2018 12:00 AM PROJECT INTERNSHIP) Narrative 02/25/2018 12:00 AM PROJECT INTERNSHIP Ordered by an unspecified provider. us Historical Provider Final Res ult documented in this encounter Visit Diagnoses Not on filedocumented in this encounter Additional Health Concerns Infection Onset Date Last Indicated Resolved Time MRSA 11/06/2023 11/06/2023 05/04/2024 3:06 AM PROJECT INTERNSHIP documented as of this encounter Care Teams Brick Kiln Worker Relationship Specialty Start Date End Date Jesu Alves DO [address] [place] [address] PCP - General Family Medicine 08/10/18 09/27/19 Ramana Stahl MD [address] [place] [address] PCP - General Family Medicine 09/28/19 03/22/23 Mahendra Song DO [address] [place] [address] PCP - General Family Medicine 03/23/23 12/21/23 Unknown, Notinfile PCP - General 12/22/23 documented as of this encounter
--- OUTSIDE RECORDS SUMMARY | 2024-06-07 15:47 | XMS_ITS ---
Care Plan - [facility] Created on: June 07, 2024 TEGAN [place] : 1970 Sex: Male Author Organization [facility] Address [address] [place] [address] Phone Care Team Providers Care Motel Maid Name Role Phone PARISA JEFFERY MD Primary Care Provider [phone]
--- OUTSIDE RECORDS SUMMARY | 2024-06-07 15:47 | XMS_ITS ---
Author Organization Unknown Address [address] [place] [phone] Phone Care Team Providers Care Head Filter Tank Tender Helper Name Role Phone DREAD TSANG Attending Unavailable HARESH MADDOX Primary Unavailable Immunization Immunization Date Status Additional Notes Code Code System Td (adult), 2 Lf tetanus toxoid, preservative free, adsorbed 11/25/2004 Completed 09 CVX influenza, unspecified formulation 02/05/2018 Completed 88 CVX Tdap 01/30/2009 Completed 115 CVX Tdap 03/23/2023 Completed 115 CVX Tdap 11/06/2023 Completed 115 CVX Influenza, split virus, quadrivalent, PF 02/09/2017 Completed 150 CVX Influenza, split virus, quadrivalent, PF 11/21/2019 Completed 150 CVX Influenza, split virus, quadrivalent, PF 03/23/2023 Completed 150 CVX COVID-19, mRNA, LNP-S, PF, 3 0 mcg/0.3 mL dose 10/02/2020 Completed 208 CVX COVID-19, mRNA, LNP-S, PF, 3 0 mcg/0.3 mL dose 10/23/2020 Completed 208 CVX Results ELBOW MINIMUM 3V LEFT - Comp leted: 01/28/2024 18:34 LOINC: EXAM DESCRIPTION: ELBOW MINIMUM 3V LEFT REASON FOR STUDY: Pain and burning in left elbow for 1 hour. Pain is medial. No known trauma. Duration: 1 hour TECHNIQUE: 3 radiographic view(s) of the left elbow . COMPARISON: None available FINDINGS: The alignment is normal. There is no fracture. Joint spaces are normal. No focal bone lesions or erosions. No elbow effusion. There is a 3 mm radiodense foreign body within the radial volar soft tissues of the proximal forearm. IMPRESSION: No acute osseous abnormality. THIS IS AN ELECTRONICALLY VERIFIED FINAL REPORT 01/28/2024 7:17 PM - Electronically signed by Rose Guido M.D. AT: AT Report ID: [id number] Reading Location: [place] [address] Social History Type Status Start Date End Date Code Code Syst em Smoking History Unknown if ever smoked [id number] Sex Male Assessment You had the following problems:DORSALGIA, UNSPECIFIED Hospital Discharge Instructions Should you have any questions prior to discharge, please contact a member of your healthcare team. If you have left the hospital and have any questions, please contact your primary care physician. Reason For Referral No Data Found Problems Problem Start Date Resolved Date Status Code Code System DORSALGIA, UNSPECIFIED active 5797364 09 SNOMED-CT Allergies and Adverse Reactions Allergy Substance Reaction Severity Start Date Concern Status Co de Code System PCN (penicillin) Active 9607799 SNOMED- CT Plan of Treatment COVID-19 Pre-op Screen 08/15/2021 COVID-19 Pre-op Screen 09/11/2021 Encounters Encounter Diagnosis Start Date Code Code Sys tem Medial epicondylitis, left elbow 01/28/2024 SNOMED-CT Personal Care Team Section Performer Name Performer Role Active Date Inactive PARISA Palomo PCP - Primary care physician 2022-09-01 SOLE SHAH PCP - Primary care physician 2022-09-01 2022-09-01 Oj Jaffe PCP - Primary care physician 2022-09-01 Imaging Narrative Notes
--- OUTSIDE RECORDS SUMMARY | 2024-06-07 15:47 | XMS_ITS ---
Author Organization [facility] Address [address] [place] [address] Phone Care Team Providers Care Petroleum Inspector Name Role Phone LATIA MCCARTHY, PARISA Primary Care Provider [phone] Plan of Treatment No Plan of Treatment Recorded Assessments Includes: Assessments for all patient encounters No Assessments Recorded Medical Equipment - Implanted Devices Includes: Current and historical Devices No Medical Equipment Recorded Medications Includes: Current and historical Medications Current Medications (continue as prescribed) amLODIPine Besylate 10 MG Oral Tablet 07/01/2023 Pro vider: PARISA JEFFERY MD Diagnosis: Last Documented On 07/02/2023 11:39AM By Gabi BONILLA ; [facility] Past Medications on file Doxycycline Hyclate 100 MG O ral Tablet 04/05/2023 - 07/02/2023 Provider: RADHA FOX DO Diagnosis: Last Documented On 07/02/2023 11:40AM By Gabi BONILLA ; [facility] HYDROcodone-Acetaminophen 5- 325 MG Oral Tablet 11/15/2022 - 07/02/2023 Provider: MARY GUERRERO Diagnosis: Last Documented On 07/02/2023 11:41AM By Gabi BONILLA ; [facility] Medications Administered Includes: Administered Medications in patient's chart No Administered Medications Recorded Results Includes: Results from 06/08/2023 through 06/07/2024 No Results Recorded For Specified Dates History of Present Illness History of Present Illness not supported for this document type No History of Present Illness Recorded Social History No Social History Recorded - Smoking Status Unknown Medical History Includes: Medical History in patient's chart No Medical History Recorded Family History Includes: Family History in patient's chart No Family History Recorded Review of Systems Review of Systems not supported for this document type No Review of Systems Recorded Mental Status No Mental Status Recorded Functional Status No Functional Status Recorded Physical Exam Physical Exam not supported for this document type No Physical Exam Recorded Insurance Includes: Active Insurance Policies No Insurance Coverage Recorded Guarantor Relationship Effective Dates Guarantor Ph one ALVAROTEGAN LUI Neil Self [id number] Clinical Notes Includes: Signed Clinical Notes starting from 03/28/2022 No Clinical Notes Recorded
--- OUTSIDE RECORDS SUMMARY | 2024-06-07 16:40 | XMS_ITS | Clinical Summary ---
Author Organization [facility] Address [facility] [place] [address] Care Team Providers Care Parks And Recreation Manager Name Role Phone Jesu Alves DO Primary Care Provider [phone] Allergies Active Allergy Reactions Criticality Noted Date [...] Comments Blood Pressure 156/97 03/31/2018 11:47 AM MEDICAL INTERPRETER Pulse 119 03/31/2018 11:47 AM MEDICAL INTERPRETER Temperature 37.3 C (99.2 F) 03/31/2018 11:00 AM MEDICAL INTERPRETER Respiratory Rate 20 03/31/2018 11:47 AM MEDICAL INTERPRETER Oxygen Saturation 94% 03/31/2018 11:15 AM MEDICAL INTERPRETER Inhaled Oxygen Concentration - - Weight 98.2 kg (216 lb 7.9 oz) 03/31/2018 7:45 A M MEDICAL INTERPRETER Height 180.3 cm (5' 11 ) 03/24/2018 2:04 PM MEDICAL INTERPRETER Body Mass Index 30.19 03/24/2018 2:04 PM MEDICAL INTERPRETER Plan of Treatment Health Maintenance Due Date [...] this topic Medical Devices Implanted Type Area Tire Changer Aircraft Device Identifier Shelf Expiration Date Model / Serial / Lot Medium [place] With Strap Ventralex St Hernia Patch Implanted:Qty: 1 on 03/31/2018 by Siva Trejo MD at [facility] 01/04/2020 [id number] / / [id number] Insurance [employer] Care Teams Parks And Recreation Manager Relationship Specialty Start Date End Date Jesu Alves DO [address] [place] [address] PCP - General FAMILY PRACTICE 03/24/18
--- OUTSIDE RECORDS SUMMARY | 2024-06-07 16:40 | XMS_ITS ---
Author Organization Unknown Address [address] [place] [phone] Phone Care Team Providers Care Secondary Spanish Teacher Name Role Phone DREAD TSANG Attending Unavailable [...] Rose Guido M.D. AT: AT Report ID: [id number] Reading Location: [place] [address] Social History Type Status Start Date End Date Code Code Syst em Smoking History Unknown if ever smoked [address] Sex Male Assessment You had [...] Status Code Code System DORSALGIA, UNSPECIFIED active 5375425 09 SNOMED-CT Allergies and Adverse Reactions Allergy Substance Reaction Severity Start Date Concern Status Co de Code System PCN (penicillin) Active 0810710 SNOMED- CT Plan of Treatment COVID-19 Pre-op [...]
--- OUTSIDE RECORDS SUMMARY | 2024-06-07 16:40 | XMS_ITS | Referral Summary ---
Author Organization [facility] Address [address] [place] [address] Care Team Providers Care Restorative Care Technician Name Role Phone Unknown, Notinfile Primary Care [...] CT hand showed cellulitis w/ abscess/fluid collection. [facility] ED attempted drainage but got no fluid return, transferred to [facility] for plastics evaluation. 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 Assessment & Plan (03/23/2023 1:53 PM SUPPLY CHAIN ASSISTANT): Not at goal - has not had [...] often do you attend chur ch or jainism services? Never 12/15/2022 Do you belong to any clubs o r organizations such as buddhism groups, unions, fraternal or athletic groups, or [...] place to sleep or slept in a skilled nursing (including now)? No 12/15/2022 Personal Safety Answer Date Recorded Have you ever been in or are you currently in a harmful physical or emotional relationship or is someone making you feel afraid or unsafe? Denies 11/24/2023 Sex and Gender Information Value Date Recorded Sex Assigned at Not on file Legal Sex Male 3:13 AM SUPPLY CHAIN ASSISTANT Gender Identity Not on file Sexual Orientation [...] on file Medical Devices Implanted Type Area Manager Sql Device Identifier Shelf Expiration Date Model / Serial / Lot 2Peer ([employer]lip[employer] [id number] Ams 700 Kit Accessory Penile Prosthesis - Sna - [id number] Implanted:Qty : 1 on 05/10/2020 by Faustino Ojeda MD at [facility] Other - see comments N/A: Penis [employer] Maya [id number] 02/06/2025 [id number] / NA / [id number] Description:IMPLANTABLE ACCE SSORY PARTS 2Peer [employer]lip[employer] Inc 107865-20 Conceal Low Profile [place] 100ml Prosthesis Inhibizone Sterile Latex Free - Sna - [id number] Implanted:Qty : 1 on 05/10/2020 by Faustino Ojeda MD at [facility] Other - see comments N/A: Penis [place] [employer] Maya [id number] 03/23/2022 [id number] / NA / [id number] [employer] Maya [id number] Prosthesis Penile Ams 700cx Ms Pump 21cm Preconnect 2 Cyl - [id number] Implanted:Qty : 1 on 05/10/2020 by Faustino Ojeda MD at [facility] N/A: Penis [employer] [id number] 01/10/2022 [id number] Procedures Procedure Name Priority Date/Time Associated Diagnosis Comments COLONOSCOPY 04/16/2023 11:59 AM SUPPLY CHAIN ASSISTANT from Last 3 Months or Most Recently Relevant to Health Maintenance Results * COLONOSCOPY (04/16/2023 11:59 AM SUPPLY CHAIN ASSISTANT) Anatomical Region Laterality Modality Other Narrative Procedure Note Jesu Alves DO - 04/16/2023 11:59 AM CST [facility] END[facility]COPY Patient Name: Shakeel Hoyt Procedure Date: 04/16/2023 11:59 AM Date of : 1970 Admit Type: Outpatient Age: 52 Gender: Male Attending MD: Jesu Alves D.O. Room: [facility] ENDOSCOPY ROOM 05 Note Status: [...] The scope was passed under direct vision.The CF-AC003H colonoscope was introduced through theanus and advanced [...] On: 04/16/2023 11:59 AM Recognized by the [place] [employer] for promoting quality in endoscopy Jesu Alves DO ENDOSCOPY PROCEDURES Fin al Result from Last 3 Months or Most Recently Relevant to Health Maintenance Insurance AETNA BETTER [facility] AETNA BETTER [facility] Member Subscriber Plan / Payer (Ef fective 2020-Present) Name:Shakeel Hoyt Relation to Subscriber:Self Name:Shakeel Hoyt Payer ID:[id number] (NAIC) Group ID:Not on file Type:MEDICAID RISK OTHER Address: [facility] [id number] [place] [id number] Advance Directives For more information, please contact: [phone] * Full Code (Latest Code Status on File) Date Activated Date Inactivated Comments 11/06/2023 7:41 AM 11/09/2023 3:42 PM * Full Code Date Activated Date Inactivated Comments 12/13/2022 6:22 PM 12/15/2022 9:38 PM Care Teams Restorative Care Technician Relationship Specialty Start Date End Date Unknown, Notinfile PCP - General 12/22/23
--- OUTSIDE RECORDS SUMMARY | 2024-06-07 16:40 | XMS_ITS | Clinical Summary ---
Author Organization [facility] Address [address] [place] [address] Care Team Providers Care Career Development Counselor Name Role Phone Unknown, Notinfile Primary Care [...] showed cellulitis w/ abscess/fluid collection. [facility] ED attempted drainage but got no fluid return, transferred to [facility] for plastics evaluation. 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 Assessment & Plan (03/23/2023 1:53 PM CLINICAL DATA ABSTRACTOR): Not at goal - has not had [...] often do you attend chur ch or congregation services? Never 12/15/2022 Do you belong to any clubs o r organizations such as hoahaoism groups, unions, fraternal or athletic groups, or [...] place to sleep or slept in a fci (including now)? No 12/15/2022 Personal Safety Answer Date Recorded Have you ever been in or are you currently in a harmful physical or emotional relationship or is someone making you feel afraid or unsafe? Denies 11/24/2023 Sex and Gender Information Value Date Recorded Sex Assigned at Not on file Legal Sex Male 3:13 AM CLINICAL DATA ABSTRACTOR Gender Identity Not on file Sexual Orientation [...] this topic Medical Devices Implanted Type Area Applications Analyst Device Identifier Shelf Expiration Date Model / Serial / Lot Shipster Inc [id number] Ams 700 Kit Accessory Penile Prosthesis - Sna - [id number] Implanted:Qty : 1 on 05/10/2020 by Faustino Ojeda MD at [facility] Other - see comments N/A: Penis [place] [employer] Maya [id number] 02/06/2025 [id number] / NA / [id number] Description:IMPLANTABLE ACCE SSORY PARTS [employer] Inc [id number] Conceal Low Profile [place] 100ml Prosthesis Inhibizone Sterile Latex Free - Sna - [id number] Implanted:Qty : 1 on 05/10/2020 by Faustino Ojeda MD at [facility] Other - see comments N/A: Penis [employer] [employer] Maya [id number] 03/23/2022 [id number] / NA / [id number] [employer] Maya [id number] Prosthesis Penile Ams 700cx Ms Pump 21cm Preconnect 2 Cyl - [id number] Implanted:Qty : 1 on 05/10/2020 by Faustino Ojeda MD at [facility] N/A: Penis [employer] Maya [id number] 01/10/2022 [id number] / / [id number] Procedures Procedure Name Priority Date/Time Associated Diagnosis Comments COLONOSCOPY 04/16/2023 11:59 AM CLINICAL DATA ABSTRACTOR from Last 3 Months or Most Recently Relevant to Health Maintenance Results * COLONOSCOPY (04/16/2023 11:59 AM CLINICAL DATA ABSTRACTOR) Anatomical Region Laterality Modality Other Narrative Procedure Note Jesu Alves, - 04/16/2023 11:59 AM CST [facility] GI ENDOSCOPY Patient Name: Shakeel Hoyt Procedure Date: 04/16/2023 11:59 AM Date of : 1970 Admit Type: Outpatient Age: 52 Gender: Male Attending MD: Jesu Alves D.O. Room: [facility] ENDOSCOPY ROOM 05 Note Status: Finalized Procedure: [...] The scope was passed under direct vision.The CF-UD679E colonoscope was introduced through theanus and advanced [...] On: 04/16/2023 11:59 AM Recognized by the [place] [employer] Gastrointestinal Endoscopy for promoting quality in endoscopy Jesu Alves DO ENDOSCOPY PROCEDURES Fin al Result from Last 3 Months or Most Recently Relevant to Health Maintenance Insurance [facility] AETNA BETTER [facility] Advance Directives For more information, please contact: [phone] * Full Code (Latest Code Status on File) Date Activated Date Inactivated Comments 11/06/2023 7:41 AM 11/09/2023 3:42 PM * Full Code Date Activated Date Inactivated Comments 12/13/2022 6:22 PM 12/15/2022 9:38 PM Care Teams Career Development Counselor Relationship Specialty Start Date End Date Unknown, Notinfile PCP - General 12/22/23
--- OUTSIDE RECORDS SUMMARY | 2024-06-07 16:40 | XMS_ITS | Clinical Summary ---
Author Organization [facility] Address [address] [place] [address] Phone Care Team Providers Care Crew Foreman Name Role Phone LATIA MCCARTHY, PARISA Primary Care Provider [phone] Reason for Visit and Chief Complaint [Patient [...] On 07/02/2023 11:39AM By Gabi BONILLA ; [facility] Medications Administered Includes: Administered Medications from this [...] Time Diagnosis [Patient Encounter] ANTONETTE AGEE APRN-FPA, TONAL REGULATOR-BC 07/21/2022 10:56AM 11:59PM Insurance Includes: Active Insurance Policies No Insurance Coverage Recorded Guarantor Relationship Effective Dates Guarantor Ph one TEGAN MAYFIELD Self [id number] Clinical Notes Includes: Clinical Notes from this encounter No Clinical Notes Recorded
--- OUTSIDE RECORDS SUMMARY | 2024-06-07 16:40 | XMS_ITS | Encounter Summary ---
Author Organization [facility] Care Team Providers Care Hospital Clerk Name Role Phone Jesu Alves DO Primary Care Provider + Ramana Stahl MD Primary Care Provide r Mahendra Song DO Primary Care Provider Unknown, Notinfile Primary Care Provider Unavail able Encounter Details Date Type Department Care Team (Latest Contact Info) Description 02/25/2018 Orders Only [facility]INCONV Provider, MD Huy [address] [place] [address] Social History Tobacco Use Types Packs/Day Years Used Date Smoking Tobacco: Never Assessed Sex and Gender Information Value Date Recorded Sex Assigned at Not on file Legal Sex Male 3:13 AM HOG RINGER Gender Identity Not on file Sexual Orientation Not on file documented as of this encounter Plan of Treatment Not on file documented as of this encounter Procedures Procedure Name Priority Date/Time Associated Diagnosis Comments PROCEDURE - RESULT 02/25/2018 12 :00 AM HOG RINGER documented in this encounter Results * PROCEDURE - RESULT (02/25/2018 12:00 AM HOG RINGER) Narrative 02/25/2018 12:00 AM HOG RINGER Ordered by an unspecified provider. 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
--- OUTSIDE RECORDS SUMMARY | 2024-06-07 16:40 | XMS_ITS ---
Care Plan - [facility] Created on: June 07, 2024 TEGAN MAYFIELD : 1970 Sex: Male Author Organization [facility] Address [address] [place] [address] Phone Care Team Providers Care Amusement Or Recreation Card Checker Name Role Phone PARISA JEFFERY MD Primary Care Provider [phone]
--- OUTSIDE RECORDS SUMMARY | 2024-06-07 16:41 | XMS_ITS ---
Author Organization [facility] Address [address] [place] [address] Phone Care Team Providers Care Associate Dentist Name Role Phone LATIA MCCARTHY, PARISA Primary Care Provider [phone] Plan of Treatment No Plan of Treatment [...] On 07/02/2023 11:39AM By Gabi BONILLA ; [facility] Past Medications on file Doxycycline Hyclate 100 MG O ral Tablet 04/05/2023 - 07/02/2023 Provider: RADHA FOX DO Diagnosis: Last Documented On 07/02/2023 11:40AM By Gabi BONILLA ; [facility] HYDROcodone-Acetaminophen 5- 325 MG Oral Tablet 11/15/2022 - 07/02/2023 Provider: MARY GUERRERO Diagnosis: Last Documented On 07/02/2023 11:41AM By Gabi BONILLA ; [facility] Medications Administered Includes: Administered Medications in [...] Guarantor Ph one ALVAROTEGAN LUI Neil Self [id number] Clinical Notes Includes: Signed Clinical Notes starting from 03/28/2022 No Clinical Notes Recorded
== END 2024-06-07 15:35 | disposition home or self-care (01) ==
PROVIDERS: Emergency Provider Emergency Medicine; PCP Internal Medicine
DX: M77.02 Medial epicondylitis, left elbow (principal)
CPT/HCPCS: 73080; 99283

== ENCOUNTER 2024-07-12 21:46 | Emergency (ER) | payer MEDICARE, MEDICAID, SELFPAY ==
[2024-07-12 21:46] VITALS: BP 157/89; PULSE 114; RESP 20; TEMP 37.3; O2SAT 98
--- NOTE | 2024-07-12 21:48 | ED_ITS ---
HPI - URI/Sore Throat General Chief Complaint: Headache Stated Complaint: Flu Time Seen by Provider: 07/12/24 21:47 Source: patient Mode of arrival: ambulatory Limitations: no limitations History of Present Illness HPI Narrative: Patient is a 54-year-old male who is presenting here with his 2 children to be seen as well for flu-like symptoms according to the father. The patient has headache and pain behind his eyes and running a slight fever. Multiple sick contacts in the household. MD elicited complaint: fever and sinus pain Pertinent past history: other ( Negative) Onset (ago): day(s) (2) Consistency: constant Severity: moderate Pain scale (0-10): 5 Description of mucous: clear Able to tolerate fluids by mouth: Yes Exacerbating factors: nothing Relieving factors: nothing Context: sick contacts Associated symptoms: fever, headache and nasal congestion Treatments prior to arrival: none Related Data Home Medications ?Medication ?Instructions ?Recorded ?Confirmed ?Last Taken ?Type amlodipine 10 mg tablet 10 mg PO DAILY 05/23/20 12/11/23 Unknown History Allergies Allergy/AdvReac Type Severity Reaction Status Date / Time doxycycline Allergy Swelling Verified 06/07/24 14:46 Penicillins Allergy Unknown Verified 06/07/24 14:46 Sulfa (Sulfonamide Allergy Unknown Verified 06/07/24 14:46 Antibiotics) Review of Systems Review of Systems: All systems reviewed & are unremarkable except as noted in HPI and below Constitutional: Constitutional: Reports no additional constitutional complaints Eyes: Eyes: Reports no additional eye complaints ENT: Reports system reviewed and no additional complaints, except as documented Cardiovascular: Cardiovascular: Reports no additional cardiovascular complaints Respiratory: Respiratory: Reports no additional respiratory complaints Gastrointestinal: Gastrointestinal: Reports no additional gastrointestinal complaints Genitourinary: Genitourinary: Reports no additional male genitourinary complaints Musculoskeletal: Musculoskeletal: Reports no additional musculoskeletal complaints Integumentary/Breasts: Skin/Breast: Reports system reviewed and no additional complaints, except as docu Neurologic: Reports system reviewed and no additional complaints, except as documented Psychiatric: Psychiatric: Reports no additional psychiatric complaints Endocrine: Endocrine: Reports no additional endocrine complaints Hematologic/Lymphatic: Hematologic/Lymphatic: Reports no additional hematologic/lymphatic complaints Allergic/Immunologic: Allergic/Immunologic: Reports no additional allergic/immunologic complaints PMFSH Past Medical History Medical History Ureteric stone Surgical History Surgical History H/O hernia repair No significant past surgical history Family History Family History Mother CAD (coronary artery disease) Social History Social History Smoking status: Never smoker Smokeless tobacco user: chewing tobacco Alcohol intake: never Substance use: never Substance use type: does not use and crack/cocaine Living arrangements: with family Occupation/Education: occupation Gender identity (if verbalized by the patient): Male Sexual Orientation (if Verbalized by the Patient): Straight or Heterosexual Exam Const: General: healthy appearing Nutritional Appearance: well nourished Orientation/consciousness: patient oriented x3 Limitations: no limitations HENMT: Head: normal to inspection Ears: external ears normal Face/Nose/Sinus: Normal external nose present Eyes: Conjunctivae: conjunctivae normal Pupils: Equal, round and reactive pupils present EOM: EOMs intact bilaterally Neck: Neck: normal visual inspection Chest: Chest palpation & inspection: normal inspection of the chest Resp: Effort & Inspection: normal respiratory effort and not labored Auscultation: clear to auscultation bilaterally and no crackles Cardio: Rate: regular rate Rhythm: regular rhythm Heart sounds: no murmurs GI: Inspection: non-distended GI Palp: Yes Soft to palpation and No Tenderness to palpation present (GI) Auscultation: normal bowel sounds : General: Yes bladder normal to palpation Back/Spine/Pelvis: Back: no CVA tenderness Skin: General skin exam: normal color Rashes: no rashes Wounds: no woun ds Neuro: General: patient oriented x3 Cranial nerves: Yes Nystagmus not present Speech: normal speech Extrem: General: normal to inspection Psych: Mental Status: mental status grossly normal Affect: normal affect Attitude: cooperative Course Vital Signs Vital signs: Vital Signs Temperature 37.3 C 07/12/24 21:46 Pulse Rate 114 H 07/12/24 21:46 Respiratory Rate 20 07/12/24 21:46 Blood Pressure 157/89 H 07/12/24 21:46 Pulse Oximetry 98 07/12/24 21:46 Oxygen Delivery Room Air 07/12/24 21:46 Temperature 37.3 C 07/12/24 21:46 Pulse Rate 114 H 07/12/24 21:46 Respiratory Rate 20 07/12/24 21:46 Blood Pressure 157/89 H 07/12/24 21:46 Pulse Oximetry 98 07/12/24 21:46 Oxygen Delivery Room Air 07/12/24 21:46 MDM - URI/Sore Throat MDM Narrative Medical decision making narrative: patient is a 54-year-old male with sinus pain and pressure here for concerns of influenza. We will do a COVID panel at this time. Lab Data Attestation: I reviewed the patient's lab results. Labs: Lab Results 07/12/24 Range/Units 21:59 Influenza A (RT-PCR) Negative (Negative) Influenza B (RT-PCR) Negative (Negative) RSV (RT-PCR) Negative (Negative) SARS-CoV-2 RNA (RT-PCR) Negative (Negative) Discharge Plan Discharge Clinical Impression: Sinusitis Qualifiers: Sinusitis location: frontal Chronicity: acute Recurrence: non-recurrent Qualified Code(s): J01.10 - Acute frontal sinusitis, unspecified Patient Disposition: Home Condition: Stable Instructions: Antibiotic Form, Sinusitis (ED) Patient Language: [place] Prescriptions: New azithromycin 250 mg tablet See Rx Instructions .ROUTE .COMPLEX Qty: 6 0RF Rx Instructions: For 250 mg dose pack: take 500 mg today (day 1), then 250 mg for 4 days (days 2-5) prednisone 20 mg tablet 40 mg PO DAILY 3 Days Qty: 6 0RF No Action tamsulosin [Flomax] 0.4 mg capsule 0.4 mg PO DAILY Qty: 30 0RF Patient Comments: LD >WEEK AGO hydrocodone-acetaminophen 5-325 mg tablet 1 tablet PO Q6H PRN (Reason: pain) Qty: 30 0RF Rx Instructions: 1-2 tabs per dose nitrofurantoin monohyd/m-cryst [Macrobid] 100 mg capsule 100 mg PO Q12H 7 Days Qty: 14 0RF Rx Instructions: must administer with a meal/food amlodipine [Norvasc] 5 mg tablet 5 mg PO DAILY Qty: 7 0RF tamsulosin [Flomax] 0.4 mg capsule 0.4 mg PO DAILY Qty: 7 0RF oxycodone-acetaminophen [Percocet] 5-325 mg tablet 1 tablet PO Q6H PRN (Reason: pain) Qty: 20 0RF amlodipine 10 mg tablet 10 mg PO DAILY Patient Comments: HAS NOT FILLED SINCE OCTOBER methylprednisolone [Medrol (Xavier)] 4 mg tablets,dose pack See Rx Instructions .ROUTE .COMPLEX Qty: 21 0RF Rx Instructions: orally per package directions Follow-up/Referrals: Ramana Stahl MD [Primary Care Provider] - Time of Disposition: 22:55
--- OUTSIDE RECORDS SUMMARY | 2024-07-12 21:48 | XMS_ITS | Clinical Summary ---
Author Organization [facility] Address Critical access hospital[address] [place] [address] Care Team Providers Care Forest And Conservation Worker Name Role Phone Jesu Alves DO Primary Care Provider [phone] Allergies Active Allergy Reactions Criticality Noted Date [...] Comments Blood Pressure 156/97 03/31/2018 11:47 AM FLOUR BLENDER Pulse 119 03/31/2018 11:47 AM FLOUR BLENDER Temperature 37.3 C (99.2 F) 03/31/2018 11:00 AM FLOUR BLENDER Respiratory Rate 20 03/31/2018 11:47 AM FLOUR BLENDER Oxygen Saturation 94% 03/31/2018 11:15 AM FLOUR BLENDER Inhaled Oxygen Concentration - - Weight 98.2 kg (216 lb 7.9 oz) 03/31/2018 7:45 A M FLOUR BLENDER Height 180.3 cm (5' 11 ) 03/24/2018 2:04 PM FLOUR BLENDER Body Mass Index 30.19 03/24/2018 2:04 PM FLOUR BLENDER Plan of Treatment Health Maintenance Due Date Last Done Comments Colorectal Cancer Screening Colonoscopy (10 Years) 1970 Annual Physical 06/15/1975 Hepatitis C 1990 DTaP, Tdap and Td Vaccines ( 1 - Tdap) 06/15/1991 Hepatitis B Vaccines (1 of 3 - 19+ 3-dose series) 06/15/1991 Pneumococcal Vaccine: 50+ Ye ars (1 of 1 - PCV) 2022 Zoster Vaccines (1 of 2) 2022 COVID-19 Vaccine (1 - 2023-2 5 season) 2023 Meningococcal B Vaccine Aged Out No l onger eligible based on patient's age to complete this topic Meningococcal Vaccine Aged Out No tere [place]ach[place] eligible based on patient's age to complete this topic RSV Immunizations Under 20 Months Aged Out No longer eligible based on patient's age to complete this topic Medical Devices Implanted Type Area Raiser Helper Device Identifier Shelf Expiration Date Model / Serial / Lot Medium [place] With Strap Ventralex St Hernia Patch Implanted:Qty: 1 on 03/31/2018 by Siva Trejo MD at [facility] 01/04/2020 [id number] / / [id number] Insurance CIGNA Care Teams Forest And Conservation Worker Relationship Specialty Start Date End Date Jesu Alves DO [address] [place], [place] [id number] PCP - General FAMILY PRACTICE 03/24/18
--- OUTSIDE RECORDS SUMMARY | 2024-07-12 21:48 | XMS_ITS | Encounter Summary ---
Author Organization [facility] Facility Care Team Providers Care Car Refinisher Name Role Phone Jesu Alves DO Primary Care Provider + Ramana Stahl MD Primary Care Provide r Mahendra Song DO Primary Care Provider Unknown, Notinfile Primary Care Provider Unavail able Encounter Details Date Type Department Care Team (Latest Contact Info) Description 02/25/2018 Orders Only [facility] Provider, MD Huy [address] [place] [id number] Social History Tobacco Use Types Packs/Day Years Used Date Smoking Tobacco: Never Assessed Sex and Gender Information Value Date Recorded Sex Assigned at Not on file Legal Sex Male 3:13 AM ENVIRONMENTAL PROGRAMS MANAGER Gender Identity Not on file Sexual Orientation Not on file documented as of this encounter Plan of Treatment Not on file documented as of this encounter Procedures Procedure Name Priority Date/Time Associated Diagnosis Comments PROCEDURE - RESULT 02/25/2018 12 :00 AM ENVIRONMENTAL PROGRAMS MANAGER documented in this encounter Results * PROCEDURE - RESULT (02/25/2018 12:00 AM ENVIRONMENTAL PROGRAMS MANAGER) Narrative 02/25/2018 12:00 AM ENVIRONMENTAL PROGRAMS MANAGER Ordered by an unspecified provider. 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
--- OUTSIDE RECORDS SUMMARY | 2024-07-12 21:48 | XMS_ITS | Clinical Summary ---
Author Organization [facility] Address [address] [place] [address] Care Team Providers Care Slate Worker Name Role Phone Unknown, Notinfile Primary Care [...] CT hand showed cellulitis w/ abscess/fluid collection. [facility] ED attempted drainage but got no fluid return, transferred to [facility] for plastics evaluation. 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 Assessment & Plan (03/23/2023 1:53 PM CALCINE FURNACE TENDER): Not at goal - has not had [...] often do you attend chur ch or methodist services? Never 12/15/2022 Do you belong to any clubs o r organizations such as taoism groups, unions, fraternal or athletic groups, or [...] place to sleep or slept in a residential (including now)? No 12/15/2022 Personal Safety Answer Date Recorded Have you ever been in or are you currently in a harmful physical or emotional relationship or is someone making you feel afraid or unsafe? Denies 11/24/2023 Sex and Gender Information Value Date Recorded Sex Assigned at Not on file Legal Sex Male 3:13 AM CALCINE FURNACE TENDER Gender Identity Not on file Sexual Orientation [...] 1990 Zoster Vaccine (1 of 2) 2022 Depression Screening 03/23/2024 03/23/2023, 08/12/19 19 Regular Well Visit/Exam 18-64 03/23/2024 03/23/2023, 08/11/2018 Influenza Vaccine (Season Ended) 2024 03/23/2023, 11/21/2019, 02/05/2018, Additional history exists Colon Cancer Screening-Colonoscopy 04/16/2033 04/16/2023 DTaP/Tdap/Td Vaccine (4 - Td or Tdap) 11/05/2033 11/06/2023, 03/23/2023, 01/30/2009, Additional history exists Pneumococcal vaccine <65 Aged Out No longer eligible based on patient's age to complete this topic Medical Devices Implanted Type Area Project Lead Device Identifier Shelf Expiration Date Model / Serial / Lot [email or web address] [id number] Ams 700 Kit Accessory Penile Prosthesis - Sna - [id number] Implanted:Qty : 1 on 05/10/2020 by Faustino Ojeda MD at [facility] Other - see comments N/A: Penis [employer] Maya [id number] 02/06/2025 [id number] / NA / [id number] Description:IMPLANTABLE ACCE SSORY PARTS [email or web address] [id number] Conceal Low Profile [place] 100ml Prosthesis Inhibizone Sterile Latex Free - Sna - [id number] Implanted:Qty : 1 on 05/10/2020 by Faustino Ojeda MD at [facility] Other - see comments N/A: Penis [employer] Maya [id number] 03/23/2022 [id number] / NA / [id number] [employer] Maya [id number] Prosthesis Penile Ams 700cx Ms Pump 21cm Preconnect 2 Cyl - [id number] Implanted:Qty : 1 on 05/10/2020 by Faustino Ojeda MD at [facility] N/A: Penis [employer] Maya [id number] 01/10/2022 [id number] 2 / / [id number] Procedures Procedure Name Priority Date/Time Associated Diagnosis Comments COLONOSCOPY 04/16/2023 11:59 AM CALCINE FURNACE TENDER from Last 3 Months or Most Recently Relevant to Health Maintenance Results * COLONOSCOPY (04/16/2023 11:59 AM CALCINE FURNACE TENDER) Anatomical Region Laterality Modality Other Narrative Procedure Note Jesu Alves, - 04/16/2023 11:59 AM CST [facility] GI ENDOSCOPY Patient Name: Shakeel Hoyt Procedure Date: 04/16/2023 11:59 AM Date of : 1970 Admit Type: Outpatient Age: 52 Gender: Male Attending MD: Jesu Alves D.O. Room: [facility] ENDOSCOPY ROOM 05 Note Status: [...] The scope was passed under direct vision.The CF-[id number] colonoscope was introduced through theanus and advanced [...] On: 04/16/2023 11:59 AM Recognized by the [place] Society for Gastrointestinal Endoscopy for promoting quality in endoscopy Jesu Alves DO ENDOSCOPY PROCEDURES Fin al Result from Last 3 Months or Most Recently Relevant to Health Maintenance Insurance [facility] AETNA BETTER [facility] Advance Directives For more information, please contact: [phone] * Full Code (Latest Code Status on File) Date Activated Date Inactivated Comments 11/06/2023 7:41 AM 11/09/2023 3:42 PM * Full Code Date Activated Date Inactivated Comments 12/13/2022 6:22 PM 12/15/2022 9:38 PM Care Teams Slate Worker Relationship Specialty Start Date End Date Unknown, Notinfile PCP - General 12/22/23
--- OUTSIDE RECORDS SUMMARY | 2024-07-12 21:48 | XMS_ITS | Referral Summary ---
Author Organization [facility] Address [address] [place] [address] Care Team Providers Care Buckler And Lacer Name Role Phone Unknown, Notinfile Primary Care [...] CT hand showed cellulitis w/ abscess/fluid collection. 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 Assessment & Plan (03/23/2023 1:53 PM MULTI SKILLED OPERATOR): Not at goal - has not [...] often do you attend chur ch or jehovah's witness services? Never 12/15/2022 Do you belong to [...] place to sleep or slept in a longterm (including now)? No 12/15/2022 Personal Safety Answer Date Recorded Have you ever been in or are you currently in a harmful physical or emotional relationship or is someone making you feel afraid or unsafe? Denies 11/24/2023 Sex and Gender Information Value Date Recorded Sex Assigned at Not on file Legal Sex Male 3:13 AM MULTI SKILLED OPERATOR Gender Identity Not on file Sexual [...] on file Medical Devices Implanted Type Area Dredge Lever Operator Device Identifier Shelf Expiration Date Model / Serial / Lot [employer] [id number] Ams 700 Kit Accessory Penile Prosthesis - Sna - [id number] Implanted:Qty : 1 on 05/10/2020 by Faustino Ojeda MD at [facility] Other - see comments N/A: Penis [facility] Maya [id number] 02/06/2025 [id number] / NA / [id number] Description:IMPLANTABLE ACCE SSORY PARTS [employer] [id number] Conceal Low Profile [place] 100ml Prosthesis Inhibizone Sterile Latex Free - Sna - [id number] Implanted:Qty : 1 on 05/10/2020 by Faustino Ojeda MD at [facility] Other - see comments N/A: Penis [place] [employer] Maya [id number] 03/23/2022 [id number] / NA / [id number] [place] [employer] Maya [id number] Prosthesis Penile Ams 700cx Ms Pump 21cm Preconnect 2 Cyl - [id number] Implanted:Qty : 1 on 05/10/2020 by Faustino Ojeda MD at [facility] N/A: Penis [employer] [id number] 01/10/2022 [id number] Procedures Procedure Name Priority Date/Time Associated Diagnosis Comments COLONOSCOPY 04/16/2023 11:59 AM MULTI SKILLED OPERATOR from Last 3 Months or Most Recently Relevant to Health Maintenance Results * COLONOSCOPY (04/16/2023 11:59 AM MULTI SKILLED OPERATOR) Anatomical Region Laterality Modality Other Narrative Procedure Note Jesu Alves DO - 04/16/2023 11:59 AM CST [facility] GI ENDOSCOPY Patient Name: Shakeel Hoyt Procedure Date: 04/16/2023 11:59 AM Date of : 1970 Admit Type: Outpatient Age: 52 Gender: Male Attending MD: Jesu Alves D.O. Room: [facility] ENDOSCOPY ROOM 05 Note Status: Finalized Procedure: [...] The scope was passed under direct vision.The CF-[id number] colonoscope was introduced through theanus and advanced [...] On: 04/16/2023 11:59 AM Recognized by the [place] Society for Gastrointestinal Endoscopy for promoting quality in endoscopy Jesu Alves DO ENDOSCOPY PROCEDURES Fin al Result from Last 3 Months or Most Recently Relevant to Health Maintenance Insurance AETNA BETTER [facility] AETNA BETTER [facility] Member Subscriber Plan / Payer (Ef fective 2020-Present) Name:Shakeel Hoyt Relation to Subscriber:Self Name:Shakeel Hoyt Payer ID:[id number] (NAIC) Group ID:Not on file Type:MEDICAID RISK OTHER Address: [facility] [id number] [place] [id number] Advance Directives For more information, please contact: [phone] * Full Code (Latest Code Status on File) Date Activated Date Inactivated Comments 11/06/2023 7:41 AM 11/09/2023 3:42 PM * Full Code Date Activated Date Inactivated Comments 12/13/2022 6:22 PM 12/15/2022 9:38 PM Care Teams Buckler And Lacer Relationship Specialty Start Date End Date Unknown, Notinfile PCP - General 12/22/23
--- OUTSIDE RECORDS SUMMARY | 2024-07-12 21:48 | XMS_ITS ---
Author Organization Unknown Address [address] [place] [phone] Phone Care Team Providers Care Asphalt Raker Name Role Phone DREAD TSANG Attending Unavailable [...] Rose Guido M.D. AT: AT Report ID: [id number] Reading Location: [id number] Social History Type Status Start Date End Date Code Code Syst em Smoking History Unknown if ever smoked [address] Sex Male Assessment You had [...] Status Code Code System DORSALGIA, UNSPECIFIED active 2302896 09 SNOMED-CT Allergies and Adverse Reactions Allergy Substance Reaction Severity Start Date Concern Status Co de Code System PCN (penicillin) Active 4979063 SNOMED- CT Plan of Treatment COVID-19 Pre-op [...]
[2024-07-12 22:50] LABS: Influenza A QL RT-PCR Negative (Negative); Influenza B QL RT-PCR Negative (Negative); RSV RNA, RT-PCR Negative (Negative); SARS-CoV-2 RNA PCR Negative (Negative)
--- OUTSIDE RECORDS SUMMARY | 2024-07-12 22:50 | XMS_ITS ---
Author Organization Unknown Address [address] [place] [phone] Phone Care Team Providers Care Lumber Stacker Driver Name Role Phone DREAD TSANG Attending Unavailable [...] Rose Guido M.D. AT: AT Report ID: [id number] Reading Location: [id number] Social History Type Status Start Date End Date Code Code Syst em Smoking History Unknown if ever smoked [address] Sex Male Assessment You had [...] Status Code Code System DORSALGIA, UNSPECIFIED active 5324216 09 SNOMED-CT Allergies and Adverse Reactions Allergy Substance Reaction Severity Start Date Concern Status Co de Code System PCN (penicillin) Active 7832088 SNOMED- CT Plan of Treatment COVID-19 Pre-op [...]
--- OUTSIDE RECORDS SUMMARY | 2024-07-12 22:50 | XMS_ITS | Clinical Summary ---
Author Organization [facility] Address [facility] [place] [address] Care Team Providers Care Animal Anatomist Name Role Phone Jesu Alves DO Primary Care Provider [phone] Allergies Active Allergy Reactions Criticality Noted Date [...] Comments Blood Pressure 156/97 03/31/2018 11:47 AM NET FINISHER Pulse 119 03/31/2018 11:47 AM NET FINISHER Temperature 37.3 C (99.2 F) 03/31/2018 11:00 AM NET FINISHER Respiratory Rate 20 03/31/2018 11:47 AM NET FINISHER Oxygen Saturation 94% 03/31/2018 11:15 AM NET FINISHER Inhaled Oxygen Concentration - - Weight 98.2 kg (216 lb 7.9 oz) 03/31/2018 7:45 A M NET FINISHER Height 180.3 cm (5' 11 ) 03/24/2018 2:04 PM NET FINISHER Body Mass Index 30.19 03/24/2018 2:04 PM NET FINISHER Plan of Treatment Health Maintenance Due Date [...] this topic Medical Devices Implanted Type Area Ict Systems Test Engineer Device Identifier Shelf Expiration Date Model / Serial / Lot Medium [place] With Strap Ventralex St Hernia Patch Implanted:Qty: 1 on 03/31/2018 by Siva Trejo MD at [facility] 01/04/2020 [id number] / / [id number] Insurance CIG[employer] Care Teams Animal Anatomist Relationship Specialty Start Date End Date Jesu Alves DO [address] [place], [place] [phone] PCP - General FAMILY PRACTICE 03/24/18
== END 2024-07-12 23:08 | disposition home or self-care (01) ==
PROVIDERS: Emergency Provider Emergency Medicine; PCP Family Medicine
DX: J01.10 Acute frontal sinusitis, unspecified (principal); Z20.822 Contact with and (suspected) exposure to COVID-19
CPT/HCPCS: 87637; 99283

== ENCOUNTER 2024-07-13 18:15 | Emergency (ER) | payer MEDICARE, MEDICAID, SELFPAY ==
--- NOTE | ~2024-07-13 | XR_ITS ---
HISTORY: low back pain, chronic, nki COMPARISON: Reference is made to a CT examination of the lumbar spine dated 08/17/2023 TECHNIQUE: 2 view lumbar spine. FINDINGS: Lumbar vertebral bodies are normally aligned. There are 5 non-rib bearing lumbar vertebral bodies. Disc spaces and vertebral body heights are well maintained. There are no lytic or sclerotic lesions. Paraspinal soft tissues are unremarkable Facet arthropathy is present. IMPRESSION: Degenerative disease without acute fracture. Reviewed, dictated and finalized at location A.
[2024-07-13 18:15] VITALS: BP 143/91; PULSE 87; RESP 16; TEMP 36.8; O2SAT 98
--- OUTSIDE RECORDS SUMMARY | 2024-07-13 18:21 | XMS_ITS ---
Author Organization Unknown Address [address] [place] [address] [phone] Phone Care Team Providers Care Men'S Custom Hair Piece Consultant Name Role Phone DREAD TSANG Attending Unavailable [...] Rose Guido M.D. AT: AT Report ID: [id number] Reading Location: [id number] Social History Type Status Start Date End Date Code Code Syst em Smoking History Unknown if ever smoked [id number] Sex Male Assessment You had [...] Status Code Code System DORSALGIA, UNSPECIFIED active 5249557 09 SNOMED-CT Allergies and Adverse Reactions Allergy Substance Reaction Severity Start Date Concern Status Co de Code System PCN (penicillin) Active 2675363 SNOMED- CT Plan of Treatment COVID-19 Pre-op [...]
[2024-07-13 18:50] LABS: Add Urine Microscopic? YES; Appearance Urine Clear (Clear); Bilirubin Urine 1+ (Negative); Blood Urine Negative (Negative); Color Urine Yellow (Yellow); Glucose Urine UA Negative (Negative); Ketones Urine Trace (Negative); Leukocyte Esterase Ur Negative (Negative); Nitrate Urine Negative (Negative); Protein Urine 1+ (Negative); Specific Grav Ur 1.025 (1.010-1.020); pH Urine 5.5 (5.0-8.0)
[2024-07-13 18:56] LABS: Bacteria Urine Trace /hpf; Mucus Urine Moderate /lpf; RBC Urine 0-2 /hpf (0-2); Squamous Epithelial Cell Urine Rare /hpf (Few)
--- NOTE | 2024-07-13 18:59 | ED_ITS ---
HPI - Back Pain/Injury General Chief Complaint: Back Pain/Injury Stated Complaint: back pain Source: patient Mode of arrival: ambulatory Limitations: no limitations History of Present Illness HPI Narrative: 54-year-old male with a history of right ureteric stone, degenerative disc disease presents to the ER with -- lower back pain which started 2-3 days ago. The patient has chronic low back pain with intermittent flare ups. The patient has intermittent flank pain. No fever or chills. No dysuria or hematuria. The patient was present in the ED yesterday with flu-like symptoms. MD elicited complaint: back pain Pertinent past history: prior back pain Onset (ago): day(s) ( Two days) Timing: constant Severity: moderate Quality: aching Location: lumbar spine Radiation: none Exacerbating factors: lifting Relieving factors: immobilization Associated symptoms: denies other symptoms Work related injury: No Related Data Home Medications ?Medication ?Instructions ?Recorded ?Confirmed ?Last Taken ?Type amlodipine 10 mg tablet 10 mg PO DAILY 05/23/20 07/13/24 Unknown History Allergies Allergy/AdvReac Type Severity Reaction Status Date / Time doxycycline Allergy Swelling Verified 07/13/24 18:28 Penicillins Allergy Unknown Verified 07/13/24 18:28 Sulfa (Sulfonamide Allergy Unknown Verified 07/13/24 18:28 Antibiotics) Review of Systems Review of Systems: All systems reviewed & are unremarkable except as noted in HPI and below Constitutional: Constitutional: Reports as per HPI Eyes: Eyes: Reports as per HPI and Reports no additional eye complaints ENT: Reports system reviewed and no additional complaints, except as documented and Reports as per HPI Cardiovascular: Cardiovascular: Reports as per HPI and Reports no additional cardiovascular complaints Respiratory: Respiratory: Reports as per HPI and Reports no additional respiratory complaints Gastrointestinal: Gastrointestinal: Reports as per HPI and Reports no additional gastrointestinal complaints Genitourinary: Genitourinary: Reports no additional male genitourinary complaints and Reports as per HPI Musculoskeletal: Musculoskeletal: Reports no additional musculoskeletal complaints, Reports as per HPI and Reports back pain Integumentary/Breasts: Skin/Breast: Reports system reviewed and no additional complaints, except as docu and Reports as per HPI Neurologic: Reports system reviewed and no additional complaints, except as documented and Reports as per HPI Psychiatric: Psychiatric: Reports no additional psychiatric complaints and Reports as per HPI Endocrine: Endocrine: Reports no additional endocrine complaints and Reports as per HPI Hematologic/Lymphatic: Hematologic/Lymphatic: Reports no additional hematologic/lymphatic complaints and Reports as per HPI Allergic/Immunologic: Allergic/Immunologic: Reports no additional allergic/immunologic complaints and Reports as per HPI [facility] Past Medical History Medical History Ureteric stone Surgical History Surgical History H/O hernia repair No significant past surgical history Family History Family History Mother CAD (coronary artery disease) Social History Social History Smoking status: Never smoker Smokeless tobacco user: chewing tobacco Alcohol intake: never Substance use: never Substance use type: does not use and crack/cocaine Living arrangements: with family Occupation/Education: occupation Gender identity (if verbalized by the patient): Male Sexual Orientation (if Verbalized by the Patient): Straight or Heterosexual Exam Narrative: vitals are stable. Afebrile. Const: General: cooperative, healthy appearing and comfortable HENMT: Head: normal to inspection, normocephalic and atraumatic Ears: hearing grossly normal bilaterally and external ears normal Face/Nose/Sinus: Normal external nose present Face and sinus: normal facial exam Mouth: Yes Normal oral and palatal mucosa present Throat: posterior oropharynx normal Eyes: General: appearance normal, both eyes and all related structures Neck: Neck: normal visual inspection, full ROM, no lymphadenopathy and no meningeal signs Chest: Chest palpation & inspection: normal inspection of the chest Resp: Effort & Inspection: normal respiratory effort Auscultation: diminished lung sounds Cardio: Palpation: normal PMI Rate: regular rate Rhythm: regular rhythm Heart sounds: S1 normal heart sound present and S2 normal heart sound present GI: Inspection: normal to inspection Auscultation: other ( No tenderness/rigidity/rebound.) : General: Yes no CVA tenderness Back/Spine/Pelvis: Back: no CVA tenderness and other ( no spinal tenderness.) Thoracic/Lumbar Spine: straight leg raise negative bilaterally ( SLR positive on the left side at 90?. Negative on the right) Skin: General skin exam: normal color and no rashes or lesions noted Neuro: General: oriented to person, oriented to place and oriented to time Extrem: General: normal to inspection, full ROM and capillary refill normal Psych: Appearance: grossly normal Course Course Emergency Course: Low back pain-- X-ray revealed degenerative changes without any major findings. Will treat with Toradol history of kidney stones-- no hematuria was noted. Vital Signs Vital signs: Vital Signs Temperature 36.8 C 07/13/24 18:15 Pulse Rate 87 07/13/24 18:15 Respiratory Rate 16 07/13/24 18:15 Blood Pressure 143/91 H 07/13/24 18:15 Pulse Oximetry 98 07/13/24 18:15 Oxygen Delivery Room Air 07/13/24 18:15 Temperature 36.8 C 07/13/24 18:15 Pulse Rate 87 07/13/24 18:15 Respiratory Rate 16 07/13/24 18:15 Blood Pressure 143/91 H 07/13/24 18:15 Pulse Oximetry 98 07/13/24 18:15 Oxygen Delivery Room Air 07/13/24 18:29 MDM - Back Pain/Injury MDM Narrative Medical decision making narrative: Low back pain with left sciatica Differential Diagnosis Differential diagnosis: Likely strain of lumbar region Medical Records Attestation: I reviewed the patient's medical records. Lab Data Attestation: I reviewed the patient's lab results. Labs: Lab Results 07/13/24 Range/Units 18:40 Urine Color Yellow (Yellow) Urine Appearance Clear (Clear) Urine pH 5.5 (5.0-8.0) Ur Specific Mccleary 1.025 H (1.010-1.020) Urine Protein 1+ H (Negative) Urine Glucose (UA) Negative (Negative) Urine Ketones Trace H (Negative) Ur Blood (Man) Negative (Negative) Urine Nitrate Negative (Negative) Urine Bilirubin 1+ H (Negative) Urine Urobilinogen 2.0 H (0.2-1.0) mg/dL Ur Leukocyte Esterase Negative (Negative) Urine RBC 0-2 (0-2) /hpf Urine WBC 4-6 H (0-3) /hpf Ur Squamous Epith Cells Rare (Few) /hpf Urine Bacteria Trace (None) /hpf Urine Mucus Moderate H /lpf Discharge Plan Discharge Clinical Impression: Strain of lumbar region, Sciatica Patient Disposition: Home Condition: Stable Instructions: Antibiotic Form, Low Back Strain (ED) Patient Language: Yemeni Prescriptions: No Action tamsulosin [Flomax] 0.4 mg capsule 0.4 mg PO DAILY Qty: 30 0RF Patient Comments: LD >WEEK AGO hydrocodone-acetaminophen 5-325 mg tablet 1 tablet PO Q6H PRN (Reason: pain) Qty: 30 0RF Rx Instructions: 1-2 tabs per dose nitrofurantoin monohyd/m-cryst [Macrobid] 100 mg capsule 100 mg PO Q12H 7 Days Qty: 14 0RF Rx Instructions: must administer with a meal/food amlodipine [Norvasc] 5 mg tablet 5 mg PO DAILY Qty: 7 0RF tamsulosin [Flomax] 0.4 mg capsule 0.4 mg PO DAILY Qty: 7 0RF oxycodone-acetaminophen [Percocet] 5-325 mg tablet 1 tablet PO Q6H PRN (Reason: pain) Qty: 20 0RF amlodipine 10 mg tablet 10 mg PO DAILY Patient Comments: HAS NOT FILLED SINCE OCTOBER methylprednisolone [Medrol (Xavier)] 4 mg tablets,dose pack See Rx Instructions .ROUTE .COMPLEX Qty: 21 0RF Rx Instructions: orally per package directions azithromycin 250 mg tablet See Rx Instructions .ROUTE .COMPLEX Qty: 6 0RF Rx Instructions: For 250 mg dose pack: take 500 mg today (day 1), then 250 mg for 4 days (days 2-5) prednisone 20 mg tablet 40 mg PO DAILY 3 Days Qty: 6 0RF Follow-up/Referrals: Ramana Stahl MD [Primary Care Provider] - Time of Disposition: 19:51
--- NOTE | 2024-07-13 19:05 | PC.NURSE ---
ASSUMED CARE. REPORT RECEIVED FROM DORA GARCIA. SITTER OUTSIDE THE ROOM. PATIENT IS CALM AND COOPERATIVE. APPEARS TO BE SLEEPING IN THE ROOM. RESP EVEN AND UNLABORED.
--- NOTE | 2024-07-13 19:06 | PC.NURSE ---
patient report received from JOSE Pérez. patient resting on stretcher awaiting results and plan.
--- NOTE | 2024-07-13 19:51 | PC.NURSE ---
patient given ice water per request and ERP okay.
[2024-07-13] MEDS: KETOROLAC 30 MG/ML VIAL (*BKC) IM (20:07)
[2024-07-13 20:10] VITALS: BP 130/90; PULSE 84; RESP 18; TEMP 37.7; O2SAT 95
== END 2024-07-13 20:30 | disposition home or self-care (01) ==
PROVIDERS: Emergency Provider Internal Medicine Critical Care Medicine; PCP Family Medicine
DX: S39.012A Strain of muscle, fascia and tendon of lower back, initial encounter (principal); M54.30 Sciatica, unspecified side; Z79.899 Other long term (current) drug therapy; X58.XXXA Exposure to other specified factors, initial encounter
CPT/HCPCS: 72100; 81001; 96372; 99283; J1885

== ENCOUNTER 2024-07-15 17:05 | Emergency (ER) | payer MEDICARE, MEDICAID, SELFPAY ==
--- NOTE | ~2024-07-15 | CT_ITS ---
CLINICAL INDICATION: Abdominal pain, nausea and fever COMPARISON: 12/11/2023. TECHNIQUE: Multiple contiguous axial images of the abdomen and pelvis were performed without the admi nistration of intravenous contrast The dose-length product (DLP) was 630.03 mGy-cm. Automated exposure control and iterative reconstruction technique were employed. FINDINGS/OBSERVATIONS: Visualized lower thorax: Calcified granuloma within the right lung base. The remainder of the bilateral lung bases are otherwise clear. The heart is of normal size, with a small pericardial effusion (an interval change from prior). Small hiatal hernia is present. Liver: The liver demonstrates homogeneous attenuation and is not enlarged. Gallbladder and biliary system: The gallbladder is decompressed, and otherwise unremarkable. Pancreas: Limited evaluation of the pancreas secondary to the lack of intravenous contrast. Spleen: The spleen demonstrates homogeneous attenuation and is not enlarged. Kidneys: The bilateral kidneys are unremarkable, without hydronephrosis or renal calculi. Adrenal glands: Unremarkable. Gastrointestinal tract: Rectosigmoid diverticulosis without surrounding inflammatory change. Appendix: The air-filled appendix is of normal caliber (axial series, images 128 through 137) Vasculature: Unremarkable Lymph nodes: No pathologically enlarged or morphologically suspicious lymph nodes within the retroperitoneum or at the root of the mesentery. Pelvic structures: The bladder is decompressed, and otherwise unremarkable. The prostate gland is not enlarged. Penile prosthetic mechanism within the left hemipelvis. Body wall and musculoskeletal: No significant degenerative disease within the lower thoracic or lumbosacral spine. IMPRESSION: Interval development of a small pericardial effusion, when compared with previous examination. Otherwise, no acute pathology within the abdomen or pelvis, as detailed above. Reviewed, dictated and finalized at location A. IMPRESSION: Interval development of a small pericardial effusion, when compared with previo us examination. Otherwise, no acute pathology within the abdomen or pelvis, as detailed above.
[2024-07-15 17:06] VITALS: BP 130/85; PULSE 113; RESP 16; TEMP 37.3; O2SAT 100
--- OUTSIDE RECORDS SUMMARY | 2024-07-15 17:07 | XMS_ITS ---
Author Organization Unknown Address [address] [place] [address] [phone] Phone Care Team Providers Care Barber Shop Manager Name Role Phone DREAD TSANG Attending Unavailable [...] Rose Guido M.D. AT: AT Report ID: [id number] Reading Location: [id number] Social History Type Status Start Date End Date Code Code Syst em Smoking History Unknown if ever smoked [id number] Sex Male Assessment You had [...] Status Code Code System DORSALGIA, UNSPECIFIED active 0848819 09 SNOMED-CT Allergies and Adverse Reactions Allergy Substance Reaction Severity Start Date Concern Status Co de Code System PCN (penicillin) Active 5407826 SNOMED- CT Plan of Treatment COVID-19 Pre-op [...]
--- OUTSIDE RECORDS SUMMARY | 2024-07-15 17:07 | XMS_ITS | Clinical Summary ---
Author Organization [facility] Address [address] [place] [address] Care Team Providers Care Auto Damage Insurance Appraiser Name Role Phone Unknown, Notinfile Primary Care [...] CT hand showed cellulitis w/ abscess/fluid collection. [facility] ED attempted drainage but got no fluid return, transferred to [facility] for plastics evaluation. 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 Assessment & Plan (03/23/2023 1:53 PM ALUMINUM SHEET CUTTER): Not at goal - has not had [...] often do you attend chur ch or voodoo services? Never 12/15/2022 Do you belong to any clubs o r organizations such as druze groups, unions, fraternal or athletic groups, or [...] place to sleep or slept in a custodial (including now)? No 12/15/2022 Personal Safety Answer Date Recorded Have you ever been in or are you currently in a harmful physical or emotional relationship or is someone making you feel afraid or unsafe? Denies 11/24/2023 Sex and Gender Information Value Date Recorded Sex Assigned at Not on file Legal Sex Male 3:13 AM ALUMINUM SHEET CUTTER Gender Identity Not on file Sexual Orientation [...] this topic Medical Devices Implanted Type Area Web Marketing Assistant Device Identifier Shelf Expiration Date Model / Serial / Lot Victor Inc [id number] Ams 700 Kit Accessory Penile Prosthesis - Sna - [id number] Implanted:Qty : 1 on 05/10/2020 by Faustino Ojeda MD at [facility] Other - see comments N/A: Penis [employer] Maya [id number] 02/06/2025 [id number] / NA / [id number] Description:IMPLANTABLE ACCE SSORY PARTS [employer] [id number] Conceal Low Profile [place] 100ml Prosthesis Inhibizone Sterile Latex Free - Sna - [id number] Implanted:Qty : 1 on 05/10/2020 by Faustino Ojeda MD at [facility] Other - see comments N/A: Penis [employer] Maya [id number] 03/23/2022 [id number] / NA / [id number] Port [employer] Maya [id number] Prosthesis Penile Ams 700cx Ms Pump 21cm Preconnect 2 Cyl - [id number] Implanted:Qty : 1 on 05/10/2020 by Faustino Ojeda MD at [facility] N/A: Penis [employer] Maya [id number] 01/10/2022 [id number] / / [id number] Procedures Procedure Name Priority Date/Time Associated Diagnosis Comments COLONOSCOPY 04/16/2023 11:59 AM ALUMINUM SHEET CUTTER from Last 3 Months or Most Recently Relevant to Health Maintenance Results * COLONOSCOPY (04/16/2023 11:59 AM ALUMINUM SHEET CUTTER) Anatomical Region Laterality Modality Other Narrative Procedure Note Jesu Alves, - 04/16/2023 11:59 AM [facility] GI ENDOSCOPY Patient Name: Shakeel Hoyt Procedure Date: 04/16/2023 11:59 AM Date of : 1970 Admit Type: Outpatient Age: 52 Gender: Male Attending MD: Jesu Alves D.O. Room: [facility] ENDOSCOPY ROOM 05 Note Status: Finalized [...] The scope was passed under direct vision.The CF-[id number] colonoscope was introduced through theanus and advanced [...] On: 04/16/2023 11:59 AM Recognized by the [employer]intestinal End[employer] for promoting quality in endoscopy Jesu Alves DO ENDOSCOPY PROCEDURES Fin al Result from Last 3 Months or Most Recently Relevant to Health Maintenance Insurance [facility] AETNA BETTER [facility] Advance Directives For more information, please contact: [phone] * Full Code (Latest Code Status on File) Date Activated Date Inactivated Comments 11/06/2023 7:41 AM 11/09/2023 3:42 PM * Full Code Date Activated Date Inactivated Comments 12/13/2022 6:22 PM 12/15/2022 9:38 PM Care Teams Auto Damage Insurance Appraiser Relationship Specialty Start Date End Date Unknown, Notinfile PCP - General 12/22/23
--- OUTSIDE RECORDS SUMMARY | 2024-07-15 17:07 | XMS_ITS | Encounter Summary ---
Author Organization [facility] Facility Care Team Providers Care Metal Alloy Scientist Name Role Phone Jesu Alves DO Primary Care Provider + Ramana Stahl MD Primary Care Provide r Mahendra Song DO Primary Care Provider Unknown, Notinfile Primary Care Provider Unavail able Encounter Details Date Type Department Care Team (Latest Contact Info) Description 02/25/2018 Orders Only [facility]INCON[facility] Provider, MD Huy [address] [place] [id number] Social History Tobacco Use Types Packs/Day Years Used Date Smoking Tobacco: Never Assessed Sex and Gender Information Value Date Recorded Sex Assigned at Not on file Legal Sex Male 3:13 AM DISTRIBUTION CENTER ADMINISTRATOR Gender Identity Not on file Sexual Orientation Not on file documented as of this encounter Plan of Treatment Not on file documented as of this encounter Procedures Procedure Name Priority Date/Time Associated Diagnosis Comments PROCEDURE - RESULT 02/25/2018 12 :00 AM DISTRIBUTION CENTER ADMINISTRATOR documented in this encounter Results * PROCEDURE - RESULT (02/25/2018 12:00 AM DISTRIBUTION CENTER ADMINISTRATOR) Narrative 02/25/2018 12:00 AM DISTRIBUTION CENTER ADMINISTRATOR Ordered by an unspecified provider. 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
--- OUTSIDE RECORDS SUMMARY | 2024-07-15 17:07 | XMS_ITS | Referral Summary ---
Author Organization [facility] Address [address] [place] [address] Care Team Providers Care Net Applications Developer Name Role Phone Unknown, Notinfile Primary Care [...] CT hand showed cellulitis w/ abscess/fluid collection. [facility] ED attempted drainage but got no fluid return, transferred to [facility] for plastics evaluation. 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 Assessment & Plan (03/23/2023 1:53 PM NIGHTMAN): Not at goal - has not had [...] often do you attend chur ch or yarsanism services? Never 12/15/2022 Do you belong to any clubs o r organizations such as caodaism groups, unions, fraternal or athletic groups, or [...] on file Legal Sex Male 3:13 AM NIGHTMAN Gender Identity Not on file Sexual Orientation [...] on file Medical Devices Implanted Type Area Food Crops Farm Hand Device Identifier Shelf Expiration Date Model / Serial / Lot [employer] Inc [id number] Ams 700 Kit Accessory Penile Prosthesis - Sna - [id number] Implanted:Qty : 1 on 05/10/2020 by Faustino Ojeda MD at [facility] Other - see comments N/A: Penis [employer] Off Maya [id number] 02/06/2025 [id number] / NA / [id number] Description:IMPLANTABLE ACCE SSORY PARTS [employer] [id number] Conceal Low Profile [place] 100ml Prosthesis Inhibizone Sterile Latex Free - Sna - [id number] Implanted:Qty : 1 on 05/10/2020 by Faustino Ojeda MD at [facility] Other - see comments N/A: Penis [place] [employer] Maya [id number] 03/23/2022 [id number] / NA / [id number] [employer] Maya [id number] Prosthesis Penile Ams 700cx Ms Pump 21cm Preconnect 2 Cyl - [id number] Implanted:Qty : 1 on 05/10/2020 by Faustino Ojeda MD at [facility] N/A: Penis [employer] [id number] 01/10/2022 [id number] Procedures Procedure Name Priority Date/Time Associated Diagnosis Comments COLONOSCOPY 04/16/2023 11:59 AM NIGHTMAN from Last 3 Months or Most Recently Relevant to Health Maintenance Results * COLONOSCOPY (04/16/2023 11:59 AM NIGHTMAN) Anatomical Region Laterality Modality Other Narrative Procedure Note Jesu Alves DO - 04/16/2023 11:59 AM [facility] GI ENDOSCOPY Patient Name: Shakeel Hoyt Procedure Date: 04/16/2023 11:59 AM Date of : 1970 Admit Type: Outpatient Age: 52 Gender: Male Attending MD: Jesu Alves D.O. Room: [facility] ENDOSCOPY ROOM 05 Note Status: [...] The scope was passed under direct vision.The CF-[id number] colonoscope was introduced through theanus and advanced [...] On: 04/16/2023 11:59 AM Recognized by the [place] Gastrointestinal Endoscopy for promoting quality in endoscopy Jesu Alves DO ENDOSCOPY PROCEDURES Fin al Result from Last 3 Months or Most Recently Relevant to Health Maintenance Insurance AETNA BETTER [facility] AETNA BETTER [facility] Member Subscriber Plan / Payer (Ef fective 2020-Present) Name:Shakeel Hoyt Relation to Subscriber:Self Name:Shakeel Hoyt Payer ID:[id number] (NAIC) Group ID:Not on file Type:MEDICAID RISK OTHER Address: [facility] [id number] [place] [id number] Advance Directives For more information, please contact: [phone] * Full Code (Latest Code Status on File) Date Activated Date Inactivated Comments 11/06/2023 7:41 AM 11/09/2023 3:42 PM * Full Code Date Activated Date Inactivated Comments 12/13/2022 6:22 PM 12/15/2022 9:38 PM Care Teams Net Applications Developer Relationship Specialty Start Date End Date Unknown, Notinfile PCP - General 12/22/23
--- OUTSIDE RECORDS SUMMARY | 2024-07-15 17:07 | XMS_ITS | Clinical Summary ---
Author Organization [facility] Address [facility] [place] [address] Care Team Providers Care Human Resources Manager Manufacturing Name Role Phone Jesu Alves DO Primary Care Provider [phone] Allergies Active Allergy Reactions Criticality Noted Date [...] Comments Blood Pressure 156/97 03/31/2018 11:47 AM FINANCIAL SALES ASSOCIATE Pulse 119 03/31/2018 11:47 AM FINANCIAL SALES ASSOCIATE Temperature 37.3 C (99.2 F) 03/31/2018 11:00 AM FINANCIAL SALES ASSOCIATE Respiratory Rate 20 03/31/2018 11:47 AM FINANCIAL SALES ASSOCIATE Oxygen Saturation 94% 03/31/2018 11:15 AM FINANCIAL SALES ASSOCIATE Inhaled Oxygen Concentration - - Weight 98.2 kg (216 lb 7.9 oz) 03/31/2018 7:45 A M FINANCIAL SALES ASSOCIATE Height 180.3 cm (5' 11 ) 03/24/2018 2:04 PM FINANCIAL SALES ASSOCIATE Body Mass Index 30.19 03/24/2018 2:04 PM FINANCIAL SALES ASSOCIATE Plan of Treatment Health Maintenance Due Date [...] this topic Medical Devices Implanted Type Area Battery Tester Device Identifier Shelf Expiration Date Model / Serial / Lot Medium [place]in With Strap Ventralex St Hernia Patch Implanted:Qty: 1 on 03/31/2018 by Siva Trejo MD at [facility] 01/04/2020 [id number] / / [id number] Insurance [employer] Care Teams Human Resources Manager Manufacturing Relationship Specialty Start Date End Date Jesu Alves DO [address] [place], [place] [phone] PCP - General FAMILY PRACTICE 03/24/18
--- NOTE | 2024-07-15 17:10 | ED_ITS ---
HPI - Skin/Abscess/Foreign Bdy General Chief complaint: Skin/Abscess/Foreign Body Stated complaint: hives Time Seen by Provider: 07/15/24 17:10 Source: patient Mode of arrival: ambulatory Limitations: no limitations History of Present Illness HPI narrative: patient is a 54-year-old male who has been to the ER 3 times this week. Initially he came for a sinus infection was given azithromycin and prednisone. Further he came back to the ER for back pain. Further he comes today with a rash generalized which could be from the azithromycin. He is still having hot and cold this with sweats at night. He generally does not feel well for the entire week. He stopped taking the azithromycin the prednisone. He is here for further evaluation and discussion. specifically he is having abdominal pain diffusely of the abdomen. MD complaint: rash Onset (ago): day(s) ( 1) Tetanus up to date: unsure Location: generalized Severity: mild Severity scale (1-10): 3 Quality: aching Pain Consistency: constant Relieving factors: none Exacerbating factors: none Context: none Associated symptoms: fever, chills and nausea Treatments prior to arrival: Benadryl and antibiotic Related Data Home Medications ?Medication ?Instructions ?Recorded ?Confirmed ?Last Taken ?Type amlodipine 10 mg tablet 10 mg PO DAILY 05/23/20 07/15/24 Unknown History Allergies Allergy/AdvReac Type Severity Reaction Status Date / Time azithromycin Allergy Intermediate Rash Verified 07/15/24 19:23 doxycycline Allergy Swelling Verified 07/13/24 18:28 Penicillins Allergy Unknown Verified 07/13/24 18:28 Sulfa (Sulfonamide Allergy Unknown Verified 07/13/24 18:28 Antibiotics) Review of Systems 2 Review of Systems: All systems reviewed & are unremarkable except as noted in HPI and below Constitutional: Constitutional: Reports no additional constitutional complaints Eyes: Eyes: Reports no additional eye complaints ENT: Reports system reviewed and no additional complaints, except as documented Cardiovascular: Cardiovascular: Reports no additional cardiovascular complaints Respiratory: Respiratory: Reports no additional respiratory complaints Gastrointestinal: Gastrointestinal: Reports no additional gastrointestinal complaints Genitourinary: Genitourinary: Reports no additional male genitourinary complaints Musculoskeletal: Musculoskeletal: Reports no additional musculoskeletal complaints Integumentary/Breasts: Skin/Breast: Reports system reviewed and no additional complaints, except as docu Neurologic: Reports system reviewed and no additional complaints, except as documented Psychiatric: Psychiatric: Reports no additional psychiatric complaints Endocrine: Endocrine: Reports no additional endocrine complaints Hematologic/Lymphatic: Hematologic/Lymphatic: Reports no additional hematologic/lymphatic complaints Allergic/Immunologic: Allergic/Immunologic: Reports no additional allergic/immunologic complaints [facility] Past Medical History Medical History Ureteric stone Surgical History Surgical History H/O hernia repair No significant past surgical history Family History Family History Mother CAD (coronary artery disease) Social History Social History Smoking status: Never smoker Smokeless tobacco user: chewing tobacco Alcohol intake: never Substance use: never Substance use type: does not use and crack/cocaine Living arrangements: with family Occupation/Education: occupation Gender identity (if verbalized by the patient): Male Sexual Orientation (if Verbalized by the Patient): Straight or Heterosexual Exam 2 Const: General: healthy appearing Nutritional Appearance: well nourished Orientation/consciousness: patient oriented x3 Limitations: no limitations HENMT: Head: normal to inspection Ears: external ears normal F lang/Nose/Sinus: Normal external nose present Eyes: Conjunctivae: conjunctivae normal Pupils: Equal, round and reactive pupils present EOM: EOMs intact bilaterally Neck: Neck: normal visual inspection Chest: Chest palpation & inspection: normal inspection of the chest Resp: Effort & Inspection: normal respiratory effort and not labored A uscultation: clear to auscultation bilaterally and no crackles Cardio: Rate: regular rate Rhythm: regular rhythm Heart sounds: no murmurs GI: Inspection: non-distended GI Palp: Yes Soft to palpation, Yes Tenderness to palpation present (GI) ( Diffuse), No Guarding due to palpation present (GI), No Rigid due to palpation, No Hernia present, No Palpable mass present and No Rebound tenderness present Auscultation: normal bowel sounds : General: Yes bladder normal to palpation Back/Spine/Pelvis: Back: no CVA tenderness Skin: General skin exam: normal color Rashes: no rashes Wounds: no wounds Neuro: General: patient oriented x3 Cranial nerves: Yes Nystagmus not present Speech: normal speech Gait exam (Neuro): Normal gait present Extrem: General: normal to inspection Psych: Mental Status: mental status grossly normal Affect: normal affect Attitude: cooperative Course Vital Signs Vital signs: Vital Signs Temperature 37.3 C 07/15/24 17:06 Pulse Rate 113 H 07/15/24 17:06 Respiratory Rate 16 07/15/24 17:06 Blood Pressure 130/85 07/15/24 17:06 Pulse Oximetry 100 07/15/24 17:06 Oxygen Delivery Room Air 07/15/24 17:06 Temperature 37.3 C 07/15/24 17:06 Pulse Rate 113 H 07/15/24 17:06 Respiratory Rate 16 07/15/24 17:06 Blood Pressure 130/85 07/15/24 17:06 Pulse Oximetry 100 07/15/24 17:06 Oxygen Delivery Room Air 07/15/24 17:06 MDM - Skin/Abscess/Foreign Bdy MDM Narrative Medical decision making narrative: patient is a 54-year-old male with continued abdominal pain and hot and cold sensations at night as well as not feeling well for the past week. Further he is here for rash secondary to likely the azithromycin that he has developed. He was on prednisone but he stopped that medicine along with the azithromycin once rash was achieved yesterday. He took Benadryl. We will stop the azithromycin and the prednisone at this time. We will do lab studies. We will get a CT of the abdomen and pelvis. Lab Data Attestation: I reviewed the patient's lab results. 07/15/24 17:53 07/15/24 17:53 Labs: Lab Results 07/15/24 Range/Units 17:53 WBC 7.6 (4.8-10.8) K/mm3 RBC 5.61 (4.70-6.10) M/mm3 Hgb 16.3 (14.0-18.0) g/dL Hct 49.4 (40.0-54.0) % MCV 88.1 (78.0-102.0) fL MCH 29.1 (27.0-31.0) pg MCHC 33.0 (32-36) g/dL RDW 13.8 (11.6-14.4) % Plt Count 262 (150-420) K/mm3 MPV 9.2 (8.7-11.0) fl Immature Gran % (Auto) Not Reportable Neut % (Auto) Not Reportable Lymph % (Auto) Not Reportable [place] % (Auto) Not Reportable Eos % (Auto) Not Reportable Baso % (Auto) Not Reportable Lymph # (Auto) Not Reportable [place] # (Auto) Not Reportable Eos # (Auto) Not Reportable Baso # (Auto) Not Reportable Abs Immat Gran (auto) Not Reportable Absolute Neuts (auto) Not Reportable Absolute Nucleated RBC Not Reportable Total Counted 100 Neutrophils % (Manual) 68 (46-73) % Band Neutrophils % 2 (0-6) % Lymphocytes % (Manual) 25 (18-44) % Monocytes % (Manual) 5 (3-9) % Eosinophils % (Manual) 0 L (1-6) % Basophils % (Manual) 0 (0-1) % Nucleated RBC % Not Reportable Abs Neuts (Manual) 5.32 (1.3-6.7) K/mm3 Abs Lymphs (Manual) 1.90 (1.1-4.5) K/mm3 Abs Monocytes (Manual) 0.38 (0.1-0.90) K/mm3 Absolute Eos (Manual) 0.00 L (0.02-0.50) K/mm3 Abs Basophils (Manual) 0.00 (0-0.1) K/mm3 Atypical Lymphocytes Present Platelet Estimate Adequate (Adequate) Schistocytes Not Reportable Sodium 138 (137-145) mmol/L Potassium 3.6 (3.4-5.0) mmol/L Chloride 103 (98-107) mmol/L Carbon Dioxide 32 H (22-30) mmol/L Anion Gap 3 L (4-12) mmol/L BUN 11 (9-20) mg/dL Creatinine 0.92 (0.7-1.3) mg/dL Estim Creat Clear Calc 96 ml/min Estimated GFR > 60 (59 - ) Glucose 126 H (65-110) mg/dL Calculated Osmolality 287 (285-295) mOsm/kg Lactic Acid 1.8 (0.4-2.0) mmol/L Calcium 8.3 L (8.4-10.2) mg/dL Total Bilirubin 0.5 (0.2-1.3) mg/dL AST 64 H (17-59) U/L ALT 84 H (6-50) U/L Alkaline Phosphatase 125 (38-126) U/L Total Protein 6.9 (6.3-8.2) g/dL Albumin 3.8 (3.5-5.1) g/dL Lipase 46 (23-300) U/L Imaging Data Attestation: I personally reviewed and interpreted this imaging study as follows: Radiologist's impression: CT scan of the abdomen and pelvis was negative for acute process and incidentally noted was a small pericardial effusion which is asymptomatic Discharge Plan Discharge Clinical Impression: Viral syndrome Allergic reaction Qualifiers: Encounter type: initial encounter Qualified Code(s): T78.40XA - Allergy, unspecified, initial encounter Patient Disposition: Home Condition: Stable Instructions: Viral Syndrome (ED), General Allergic Reaction (ED) Additional Instructions: please follow-up with the primary doctor in the next week. I suggest further testing as an outpatient if continued illness after a week. You may get an echocardiogram done of the heart as an outpatient with the small pericardial effusion found on CT scan. Stop azithromycin. Please use Benadryl as needed for itching and rash. I have filled prednisone at the pharmacy for 3 days. Patient Language: Spanish Prescriptions: New prednisone 20 mg tablet 20 mg PO DAILY 3 Days Qty: 3 0RF No Action amlodipine 10 mg tablet 10 mg PO DAILY Patient Comments: HAS NOT FILLED SINCE OCTOBER azithromycin 250 mg tablet See Rx Instructions .ROUTE .COMPLEX Qty: 6 0RF Rx Instructions: For 250 mg dose pack: take 500 mg today (day 1), then 250 mg for 4 days (days 2-5) Follow-up/Referrals: UNKNOWN,DOCTOR [Non-Staff] - Time of Disposition: :23
--- OUTSIDE RECORDS SUMMARY | 2024-07-15 17:37 | XMS_ITS | Clinical Summary ---
Author Organization [facility] Address [facility] [place] [address] Care Team Providers Care Dispatch Officer Name Role Phone Jesu Alves DO Primary Care Provider [phone] Allergies Active Allergy Reactions Criticality Noted Date [...] Comments Blood Pressure 156/97 03/31/2018 11:47 AM EXPRESSIVE ART THERAPIST Pulse 119 03/31/2018 11:47 AM EXPRESSIVE ART THERAPIST Temperature 37.3 C (99.2 F) 03/31/2018 11:00 AM EXPRESSIVE ART THERAPIST Respiratory Rate 20 03/31/2018 11:47 AM EXPRESSIVE ART THERAPIST Oxygen Saturation 94% 03/31/2018 11:15 AM EXPRESSIVE ART THERAPIST Inhaled Oxygen Concentration - - Weight 98.2 kg (216 lb 7.9 oz) 03/31/2018 7:45 A M EXPRESSIVE ART THERAPIST Height 180.3 cm (5' 11 ) 03/24/2018 2:04 PM EXPRESSIVE ART THERAPIST Body Mass Index 30.19 03/24/2018 2:04 PM EXPRESSIVE ART THERAPIST Plan of Treatment Health Maintenance Due Date [...] this topic Medical Devices Implanted Type Area Section Cutter Device Identifier Shelf Expiration Date Model / Serial / Lot Medium Samish With Strap Ventralex St Hernia Patch Implanted:Qty: 1 on 03/31/2018 by Siva Trejo MD at [facility] 01/04/2020 [id number] / / [id number] Insurance [employer] Care Teams Dispatch Officer Relationship Specialty Start Date End Date Jesu Alves DO [address] [place], [place] [id number] PCP - General FAMILY PRACTICE 03/24/18
--- OUTSIDE RECORDS SUMMARY | 2024-07-15 17:37 | XMS_ITS | Referral Summary ---
Author Organization [facility] Address [address] [place] [address] Care Team Providers Care Accordion Maker Name Role Phone Unknown, Notinfile Primary Care [...] CT hand showed cellulitis w/ abscess/fluid collection. [facility] ED attempted drainage but got no fluid return, transferred to [facility] for plastics evaluation. 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 Assessment & Plan (03/23/2023 1:53 PM LAB SPECIALIST): Not at goal - has not had [...] often do you attend chur ch or sikh services? Never 12/15/2022 Do you belong to any clubs o r organizations such as zoroastrianism groups, unions, fraternal or athletic groups, or [...] place to sleep or slept in a long term (including now)? No 12/15/2022 Personal Safety Answer Date Recorded Have you ever been in or are you currently in a harmful physical or emotional relationship or is someone making you feel afraid or unsafe? Denies 11/24/2023 Sex and Gender Information Value Date Recorded Sex Assigned at Not on file Legal Sex Male 3:13 AM LAB SPECIALIST Gender Identity Not on file Sexual Orientation [...] on file Medical Devices Implanted Type Area Travertine Installer Device Identifier Shelf Expiration Date Model / Serial / Lot [employer] [id number] Ams 700 Kit Accessory Penile Prosthesis - Sna - [id number] Implanted:Qty : 1 on 05/10/2020 by Faustino Ojeda MD at [facility] Other - see comments N/A: Penis [employer] Maya [id number] 02/06/2025 [id number] / NA / [id number] Description:IMPLANTABLE ACCE SSORY PARTS [employer] [id number] Conceal Low Profile Economy 100ml Prosthesis Inhibizone Sterile Latex Free - Sna - [id number] Implanted:Qty : 1 on 05/10/2020 by Faustino Ojeda MD at [facility] Other - see comments N/A: Penis [employer] Maya [id number] 03/23/2022 [id number] / NA / [id number] [employer] Maya [id number] Prosthesis Penile Ams 700cx Ms Pump 21cm Preconnect 2 Cyl - [id number] Implanted:Qty : 1 on 05/10/2020 by Faustino Ojeda MD at [facility] N/A: Penis [employer] [id number] 01/10/2022 [id number] Procedures Procedure Name Priority Date/Time Associated Diagnosis Comments COLONOSCOPY 04/16/2023 11:59 AM LAB SPECIALIST from Last 3 Months or Most Recently Relevant to Health Maintenance Results * COLONOSCOPY (04/16/2023 11:59 AM LAB SPECIALIST) Anatomical Region Laterality Modality Other Narrative Procedure Note Jesu Alves DO - 04/16/2023 11:59 AM [facility]ST [facility] GI ENDOSCOPY Patient Name: Shakeel Hoyt Procedure Date: 04/16/2023 11:59 AM Date of : 1970 Admit Type: Outpatient Age: 52 Gender: Male Attending MD: Jesu Alves D.O. Room: [facility] ENDOSCOPY ROOM 05 Note Status: Finalized Procedure: [...] The scope was passed under direct vision.The CF-[id number] colonoscope was introduced through theanus and advanced [...] On: 04/16/2023 11:59 AM Recognized by the [employer] for promoting quality in endoscopy Jesu Alves DO ENDOSCOPY PROCEDURES Fin al Result from Last 3 Months or Most Recently Relevant to Health Maintenance Insurance AET[employer] [facility]TER [facility] AETNA [facility]TER [facility] Member Subscriber Plan / Payer (Ef fective 2020-Present) Name:Shakeel Hoyt Relation to Subscriber:Self Name:Shakeel Hoyt Payer ID:[id number] (NAIC) Group ID:Not on file Type:MEDICAID RISK OTHER Address: [facility] [address] [place] [id number] Advance Directives For more information, please contact: [phone] * Full Code (Latest Code Status on File) Date Activated Date Inactivated Comments 11/06/2023 7:41 AM 11/09/2023 3:42 PM * Full Code Date Activated Date Inactivated Comments 12/13/2022 6:22 PM 12/15/2022 9:38 PM Care Teams Accordion Maker Relationship Specialty Start Date End Date Unknown, Notinfile PCP - General 12/22/23
--- OUTSIDE RECORDS SUMMARY | 2024-07-15 17:37 | XMS_ITS | Encounter Summary ---
Author Organization [facility] Care Team Providers Care Flame Hardener Name Role Phone Jesu Alves DO Primary Care Provider + Ramana Stahl MD Primary Care Provide r Mahendra Song DO Primary Care Provider Unknown, Notinfile Primary Care Provider Unavail able Encounter Details Date Type Department Care Team (Latest Contact Info) Description 02/25/2018 Orders Only [facility] CLINCONV Provider, MD Huy [address] [place] [id number] Social History Tobacco Use Types Packs/Day Years Used Date Smoking Tobacco: Never Assessed Sex and Gender Information Value Date Recorded Sex Assigned at Not on file Legal Sex Male 3:13 AM APPLICATION INTEGRATOR Gender Identity Not on file Sexual Orientation Not on file documented as of this encounter Plan of Treatment Not on file documented as of this encounter Procedures Procedure Name Priority Date/Time Associated Diagnosis Comments PROCEDURE - RESULT 02/25/2018 12 :00 AM APPLICATION INTEGRATOR documented in this encounter Results * PROCEDURE - RESULT (02/25/2018 12:00 AM APPLICATION INTEGRATOR) Narrative 02/25/2018 12:00 AM APPLICATION INTEGRATOR Ordered by an unspecified provider. 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
--- OUTSIDE RECORDS SUMMARY | 2024-07-15 17:37 | XMS_ITS | Clinical Summary ---
Author Organization [facility] Address [address] [place] [address] Care Team Providers Care Hydraulic Riveter Name Role Phone Unknown, Notinfile Primary Care [...] but got no fluid return, transferred to [facility] for plastics evaluation. 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 Assessment & Plan (03/23/2023 1:53 PM LIBRARY SALES CONSULTANT): Not at goal - has not had [...] often do you attend chur ch or tenriism services? Never 12/15/2022 Do you belong to any clubs o r organizations such as mandaeism groups, unions, fraternal or athletic groups, or [...] place to sleep or slept in a correction (including now)? No 12/15/2022 Personal Safety Answer Date Recorded Have you ever been in or are you currently in a harmful physical or emotional relationship or is someone making you feel afraid or unsafe? Denies 11/24/2023 Sex and Gender Information Value Date Recorded Sex Assigned at Not on file Legal Sex Male 3:13 AM LIBRARY SALES CONSULTANT Gender Identity Not on file Sexual Orientation [...] this topic Medical Devices Implanted Type Area Typer Device Identifier Shelf Expiration Date Model / Serial / Lot [employer] [id number] Ams 700 Kit Accessory Penile Prosthesis - Sna - [id number] Implanted:Qty : 1 on 05/10/2020 by Faustino Ojeda MD at [facility] Other - see comments N/A: Penis [employer] Maya [id number] 02/06/2025 [id number] / NA / [id number] Description:IMPLANTABLE ACCE SSORY PARTS [employer] [id number] Conceal Low Profile [place] 100ml Prosthesis Inhibizone Sterile Latex Free - Sna - [id number] Implanted:Qty : 1 on 05/10/2020 by Faustino Ojeda MD at [facility] Other - see comments N/A: Penis [employer] Maya [id number] 03/23/2022 [id number] / NA / [id number] [employer] Maya [id number] Prosthesis Penile Ams 700cx Ms Pump 21cm Preconnect 2 Cyl - [id number] Implanted:Qty : 1 on 05/10/2020 by Faustino Ojeda MD at [facility] N/A: Penis [employer] Maya [id number] 01/10/2022 [id number] 2 / / [id number] Procedures Procedure Name Priority Date/Time Associated Diagnosis Comments COLONOSCOPY 04/16/2023 11:59 AM LIBRARY SALES CONSULTANT from Last 3 Months or Most Recently Relevant to Health Maintenance Results * COLONOSCOPY (04/16/2023 11:59 AM LIBRARY SALES CONSULTANT) Anatomical Region Laterality Modality Other Narrative Procedure Note Jesu Alves, - 04/16/2023 11:59 AM CST [facility] GI ENDOSCOPY Patient Name: Shakeel Hoyt Procedure Date: 04/16/2023 11:59 AM Date of : 1970 Admit Type: Outpatient Age: 52 Gender: Male Attending MD: Jesu Alves D.O. Room: [facility] ENDOSCOPY ROOM 05 Note Status: [...] The scope was passed under direct vision.The [id number] colonoscope was introduced through theanus and advanced [...] On: 04/16/2023 11:59 AM Recognized by the [place] for promoting quality in endoscopy Jesu Alves DO ENDOSCOPY PROCEDURES Fin al Result from Last 3 Months or Most Recently Relevant to Health Maintenance Insurance [facility] AETNA [facility] Advance Directives For more information, please contact: [phone] * Full Code (Latest Code Status on File) Date Activated Date Inactivated Comments 11/06/2023 7:41 AM 11/09/2023 3:42 PM * Full Code Date Activated Date Inactivated Comments 12/13/2022 6:22 PM 12/15/2022 9:38 PM Care Teams Hydraulic Riveter Relationship Specialty Start Date End Date Unknown, Notinfile PCP - General 12/22/23
--- OUTSIDE RECORDS SUMMARY | 2024-07-15 17:37 | XMS_ITS ---
Author Organization Unknown Address [address] [place] [phone] Phone Care Team Providers Care Bartacker Name Role Phone DREAD TSANG Attending Unavailable [...] Rose Guido M.D. AT: AT Report ID: [id number] Reading Location: [id number] Social History Type Status Start Date End Date Code Code Syst em Smoking History Unknown if ever smoked [id number] Sex Male Assessment You had [...] Status Code Code System DORSALGIA, UNSPECIFIED active 9202280 09 SNOMED-CT Allergies and Adverse Reactions Allergy Substance Reaction Severity Start Date Concern Status Co de Code System PCN (penicillin) Active 9946861 SNOMED- CT Plan of Treatment COVID-19 Pre-op [...]
[2024-07-15 17:57] LABS: Hematocrit 49.4 % (40.0-54.0); Hemoglobin 16.3 g/dL (14.0-18.0); Mean Corpuscular Hemoglobin 29.1 pg (27.0-31.0); Mean Corpuscular Volume 88.1 fL (78.0-102.0); Mean Platelet Volume 9.2 fl (8.7-11.0); Platelet Count Result 262 K/mm3 (150-420); Red Blood Count 5.61 M/mm3 (4.70-6.10); Red Cell Distribution Width 13.8 % (11.6-14.4); White Blood Count 7.6 K/mm3 (4.8-10.8)
[2024-07-15 18:11] LABS: Alanine Aminotransferase 84 U/L (6-50); Albumin Level 3.8 g/dL (3.5-5.1); Alkaline Phosphatase 125 U/L (38-126); Anion Gap 3 mmol/L (4-12); Aspartate Amino Transferase 64 U/L (17-59); Bilirubin,Total 0.5 mg/dL (0.2-1.3); Blood Urea Nitrogen 11 mg/dL (9-20); Calcium 8.3 mg/dL (8.4-10.2); Carbon Dioxide 32 mmol/L (22-30); Chloride 103 mmol/L (98-107); Estimated CRCL calculation 96 ml/min; Estimated Glomerular Filt Rate > 60; Glucose 126 mg/dL (65-110); Lipase 46 U/L (23-300); Osmolality Calculated 287 mOsm/kg (285-295); Potassium 3.6 mmol/L (3.4-5.0); Sodium 138 mmol/L (137-145); Total Protein 6.9 g/dL (6.3-8.2)
[2024-07-15 18:17] LABS: Lactic Acid Reflex 1.8 mmol/L (0.4-2.0)
[2024-07-15 18:42] LABS: Atypical Lymphocytes Present; Band Neutrophils Percent 2 % (0-6); Basophils Percent Manual 0 % (0-1); Eosinophils Percent Manual 0 % (1-6); Lymphocytes Percent Manual 25 % (18-44); Monocytes Absolute Manual 0.38 K/mm3 (0.1-0.90); Monocytes Percent Manual 5 % (3-9); Neutrophils Absolute Manual 5.32 K/mm3 (1.3-6.7); Neutrophils Percent Manual 68 % (46-73); Platelet Estimate Adequate (Adequate); Total Cells Counted 100
[2024-07-15] MEDS: predniSONE 20 MG TABLET PO (19:47)
[2024-07-15] MEDS: ONDANSETRON HCL ODT 4 MG TABLET PO (19:59)
[2024-07-15 20:02] VITALS: BP 159/98; PULSE 89; RESP 18; O2SAT 98
== END 2024-07-15 20:02 | disposition home or self-care (01) ==
PROVIDERS: Emergency Provider Emergency Medicine; PCP Internal Medicine
DX: B34.9 Viral infection, unspecified (principal); T78.40XA Allergy, unspecified, initial encounter; Z79.899 Other long term (current) drug therapy
CPT/HCPCS: 36415; 74176; 80053; 83605; 83690; 85025; 99284; A9270; J7512

== ENCOUNTER 2024-11-11 12:33 | Emergency (ER) | payer MEDICARE, MEDICAID, SELFPAY ==
--- NOTE | ~2024-11-11 | XR_ITS ---
EXAM/PROCEDURE: XR chest 2V - 11/11/2024 12:50 CDT HISTORY: 54 years old Male with cp TECHNIQUE: Two view(s) of the chest. COMPARISON: 12/12/2022 FINDINGS: LUNGS/ PLEURA: No focal consolidation. No appreciable pneumothorax or large pleural effusion. HEART/ MEDIASTINUM: Heart appears normal in size. BONES: Degenerative changes. OTHER: Visualized upper abdomen is unremarkable. IMPRESSION: No acute process. Reviewed, dictated and finalized at location N. IMPRESSION: No acute process.
--- NOTE | 2024-11-11 12:35 | ECG_ITS ---
Test Date: 2024-11-11 12:40:26 Measurements Intervals Fowler Rate: 104 P: 50 DC: 164 QRS: 263 QRSD: 87 T: 61 QT: 342 QTc: 451 Interpretive Statements SINUS TACHYCARDIA POOR R-WAVE PROGRESSION LEFT AXIS DEVIATION No previous ECG available for comparison Electronically Signed On 11-11-2024 12:46:25 CDT by Gabriele Valencia M.D.
--- NOTE | 2024-11-11 12:35 | ED.CHESTPAIN ---
HPI - Chest Pain General Chief Complaint: Chest Pain Stated Complaint: chest pain Time Seen by Provider: 11/11/24 12:35 Source: patient Mode of arrival: ambulatory Limitations: no limitations History of Present Illness HPI narrative: Patient is a 54-year-old male with some left-sided chest pain that started today. He has no history of coronary disease. Some family history however of coronary disease. He is under arrest at this time. Pain does not radiate. He does have some warm sensation and tingling in the lips with an anxiety sensation. No back pain. MD complaint: chest pain Pertinent past history: other ( hypertension) Onset (ago): day(s) ( 1) Timing of current episode: constant Prior episodes: Yes Onset: during exertion and other ( with anxiety and incarceration) Pain location: left chest Pain radiation: none Severity: mild Pain scale (0-10): 3 Quality: sharp Relieving factors: nothing Exacerbating factors: exertion, palpation and stress Context: other ( patient has left-sided chest pain associated with a very stressful morning as well as incarceration) Associated symptoms: sense of impending doom and palpitations Treatment prior to arrival: none Risk Factors Coronary artery disease risk factors: hypertension Thoracic aortic dissection risk factors: none Related Data Allergies Allergy/AdvReac Type Severity Reaction Status Date / Time azithromycin Allergy Intermediate Rash Verified 11/11/24 12:43 doxycycline Allergy Swelling Verified 11/11/24 12:43 Penicillins Allergy Unknown Verified 11/11/24 12:43 Sulfa (Sulfonamide Allergy Unknown Verified 11/11/24 12:43 Antibiotics) Review of Systems Review of Systems: All systems reviewed & are unremarkable except as noted in HPI and below Constitutional: Constitutional: Reports no additional constitutional complaints Eyes: Eyes: Reports no additional eye complaints ENT: Reports system reviewed and no additional complaints, except as documented Cardiovascular: Cardiovascular: Reports no additional cardiovascular complaints Respiratory: Respiratory: Reports no additional respiratory complaints Gastrointestinal: Gastrointestinal: Reports no additional gastrointestinal complaints Genitourinary: Genitourinary: Reports no additional male genitourinary complaints Musculoskeletal: Musculoskeletal: Reports no additional musculoskeletal complaints Integumentary/Breasts: Skin/Breast: Reports system reviewed and no additional complaints, except as docu Neurologic: Reports system reviewed and no additional complaints, except as documented Psychiatric: Psychiatric: Reports no additional psychiatric complaints Endocrine: Endocrine: Reports no additional endocrine complaints Hematologic/Lymphatic: Hematologic/Lymphatic: Reports no additional hematologic/lymphatic complaints Allergic/Immunologic: Allergic/Immunologic: Reports no additional allergic/immunologic complaints [facility] Past Medical History Medical History Ureteric stone Surgical History Surgical History H/O hernia repair No significant past surgical history Family History Family History Mother CAD (coronary artery disease) Social History Social History Smoking status: Never smoker Tobacco type: smokeless tobacco Smokeless tobacco user: chewing tobacco Second hand tobacco smoke exposure: No Alcohol intake: never Substance use: current Substance use type: marijuana Do You Feel Safe in your Home?: Yes Lack of Transportation: No Lack of Food: Never True Current Housing: I Have Housing Concerned About Future Housing: No Difficulty Paying Gas/Electric Bills: No Difficulty Paying for Meds: No Currently Unemployed: No Education: High School Diploma/GED Difficulty w/ Childcare or Family Care: No Living arrangements: with family Occupation/Education: occupation Gender identity (if verbalized by the patient): Male Sexual Orientation (if Verbalized by the Patient): Straight or Heterosexual Spiritual care concerns: No Exam Const: General: healthy appearing Nutritional Appearance: well nourished Orientation/consciousness: patient oriented x3 HENMT: Head: normal to inspection Ears: external ears normal Face/Nose/Sinus: Normal external nose present Eyes: Conjunctivae: conjunctivae normal Pupils: Equal, round and reactive pupils present EOM: EOMs intact bilaterally Neck: Neck: normal visual inspection Chest: Chest palpation & inspection: normal inspection of the chest Resp: Effort & Inspection: normal respiratory effort and not labored Auscultation: clear to auscultation bilaterally and no crackles Cardio: Rate: regular rate Rhythm: regular rhythm Heart sounds: no murmurs GI: Inspection: non-distended GI Palp: Yes Soft to palpation and No Tenderness to palpation present (GI) Auscultation: normal bowel sounds : General: Yes bladder normal to palpation Back/Spine/Pelvis: Back: no CVA tenderness Skin: General skin exam: normal color Rashes: no rashes Wounds: no wounds Neuro: General: patient oriented x3, moves all extremities and no meningeal signs Extrem: General: normal to inspection Psych: Mental Status: mental status grossly normal Affect: Anxious affect present Attitude: cooperative Course Vital Signs Vital signs: Vital Signs Temperature 36.8 C 11/11/24 12:39 Pulse Rate 107 H 11/11/24 12:39 Respiratory Rate 16 11/11/24 12:39 Blood Pressure 115/92 H 11/11/24 12:39 Pulse Oximetry 96 11/11/24 12:39 Oxygen Delivery Room Air 11/11/24 12:39 Temperature 36.8 C 11/11/24 12:39 Pulse Rate 107 H 11/11/24 12:39 Respiratory Rate 16 11/11/24 12:39 Blood Pressure 115/92 H 11/11/24 12:39 Pulse Oximetry 96 11/11/24 12:39 Oxygen Delivery Room Air 11/11/24 12:39 MDM - Chest Pain MDM Narrative Medical decision making narrative: patient is a 54-year-old male with a left-sided chest pain today. No history of CAD. We will do a cardiac workup at this time. Lab Data Attestation: I reviewed the patient's lab results. 11/11/24 12:48 11/11/24 12:48 Labs: Lab Results 11/11/24 11/11/24 Range/Units 12:48 12:48 WBC 12.8 H (4.8-10.8) K/mm3 RBC 4.85 (4.70-6.10) M/mm3 Hgb 14.3 (14.0-18.0) g/dL Hct 43.7 (40.0-54.0) % MCV 90.1 (78.0-102.0) fL MCH 29.5 (27.0-31.0) pg MCHC 32.7 (32-36) g/dL RDW 13.5 (11.6-14.4) % Plt Count 465 H (150-420) K/mm3 MPV 8.6 L (8.7-11.0) fl Immature Gran % (Auto) 0.3 H (0.0-0.0) % Neut % (Auto) 66.5 (50.0-70.0) % Lymph % (Auto) 24.8 (18.0-42.0) % [place] % (Auto) 6.3 (2.0-11.0) % Eos % (Auto) 1.5 (1.0-6.0) % Baso % (Auto) 0.6 (0.0-1.0) % Lymph # (Auto) 3.17 (1.10-4.50) K/mm3 [place] # (Auto) 0.81 (0.10-0.90) K/mm3 Eos # (Auto) 0.19 (0.02-0.50) K/mm3 Baso # (Auto) 0.08 (0.00-0.10) K/mm3 Abs Immat Gran (auto) 0.04 H (0.00-0.00) K/mm3 Absolute Neuts (auto) 8.49 H (1.70-7.20) K/mm3 Absolute Nucleated RBC 0.00 (0.00-0.00) K/mm3 Nucleated RBC % 0.0 (0-0.0) % PT 10.4 (9.50-12.1) Seconds INR 0.9 APTT 27.7 (23.9-30.70) Sec D-Dimer Cancelled 0.42 Sodium 142 (137-145) mmol/L Potassium 3.6 (3.4-5.0) mmol/L Chloride 106 (98-107) mmol/L Carbon Dioxide 27 (22-30) mmol/L Anion Gap 9 (4-12) mmol/L BUN 8 L (9-20) mg/dL Creatinine 0.76 (0.7-1.3) mg/dL Estim Creat Clear Calc 108 ml/min Estimated GFR > 60 (59 - ) Glucose 124 H (65-110) mg/dL Calculated Osmolality 293 (285-295) mOsm/kg Calcium 9.3 (8.4-10.2) mg/dL Total Bilirubin 0.5 (0.2-1.3) mg/dL AST 28 (17-59) U/L ALT 23 (6-50) U/L Alkaline Phosphatase 87 (38-126) U/L Troponin I < 0.012 (0.000-0.034) ng/mL NT-Pro-B Natriuret Pep < 20 (19.9-100) pg/mL Total Protein 7.5 (6.3-8.2) g/dL Albumin 4.4 (3.5-5.1) g/dL Lipase 48 (23-300) U/L Imaging Data Attestation: I personally reviewed and interpreted this imaging study as follows: ECG Data EKG #1: Attestation: I personally reviewed and interpreted this ECG as follows: ECG completion date: 11/11/24 ECG completion time: 13:02 EKG Interpretation: tachycardia, sinus rhythm, no ectopy, non-specific ST changes, normal QRS, widened QRS, normal QT and left axis Discharge Plan Discharge Clinical Impression: Atypical chest pain Patient Disposition: Home Condition: Stable Instructions: Chest Pain (ED) Additional Instructions: please follow-up with primary doctor in the next week. Further outpatient cardiac workup can be done with a ui engineer or your primary doctor. Patient Language: [place] Island[place] Prescriptions: No Action prednisone 20 mg tablet 20 mg PO DAILY 3 Days Qty: 3 0RF amlodipine 10 mg tablet 10 mg PO DAILY Qty: 90 3RF Follow-up/Referrals: Cam Sandhu DO [Primary Care Provider, [facility]] Time of Disposition: 13:27
--- OUTSIDE RECORDS SUMMARY | 2024-11-11 12:38 | XMS_ITS | Encounter Summary ---
Author Organization [facility] Facility Care Team Providers Care Balloon Sander Name Role Phone Jesu Alves DO Primary Care Provider + Ramana Stahl MD Primary Care Provide r Mahendra Song DO Primary Care Provider Unknown, Notinfile Primary Care Provider Unavail able Encounter Details Date Type Department Care Team (Latest Contact Info) Description 02/25/2018 Orders Only [facility] CLINCONV Provider, MD Huy [address] [place] [id number] Social History Tobacco Use Types Packs/Day Years Used Date Smoking Tobacco: Never Assessed Sex and Gender Information Value Date Recorded Sex Assigned at Not on file Legal Sex Male 3:13 AM OPERATOR COATING FURNACE Gender Identity Not on file Sexual Orientation Not on file documented as of this encounter Plan of Treatment Not on file documented as of this encounter Procedures Procedure Name Priority Date/Time Associated Diagnosis Comments PROCEDURE - RESULT 02/25/2018 12 :00 AM OPERATOR COATING FURNACE documented in this encounter Results * PROCEDURE - RESULT (02/25/2018 12:00 AM OPERATOR COATING FURNACE) Narrative 02/25/2018 12:00 AM OPERATOR COATING FURNACE Ordered by an unspecified provider. 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
[2024-11-11 12:39] VITALS: BP 115/92; PULSE 107; RESP 16; TEMP 36.8; O2SAT 96
--- OUTSIDE RECORDS SUMMARY | 2024-11-11 12:39 | XMS_ITS | Clinical Summary ---
Author Organization [facility] Address [address] [place] [address] Care Team Providers Care Bobbin Sorter Name Role Phone Unknown, Notinfile Primary Care [...] by mouth daily 90 tablet 1 4 Active HYDROcodone-aceta minophen (NORCO) 5-325 mg per tabletIndications :Pain Take 1 tablet by mouth every 6 (six) hours as needed for pain 6 tablet 4 Active Active Problems Problem Noted Date Diagnosed Date R pinky cellulitis with abscess 11/06/2023 Assessment & Plan (11/11/2023 5:18 PM CDT): Presented w/ 1d R pinky swelling/pain without trauma/systemic symptoms. CT hand showed cellulitis w/ abscess/fluid collection. [facility] ED attempted drainage but got no fluid return, transferred to [facility] for plastics evaluation. 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 Assessment & Plan (03/23/2023 1:53 PM SALVAGER HELPER): Not at goal - has not had [...] oz pur e alcohol) Social Connection and Isolation Panel Answer Date Recorded In a typical week, how many times do you talk on the phone with family, friends, or neighbors? More than three times a week 12/15/2022 How often do you get togethe r with friends or relatives? More than three times a week 12/15/2022 How often do you attend chur ch or christianity services? Never 12/15/2022 Do you belong to any clubs o r organizations such as anabaptism groups, unions, fraternal or athletic groups, or [...] on file Legal Sex Male 3:13 AM SALVAGER HELPER Gender Identity Not on file Sexual Orientation [...] 6:11 PM CDT Height 180.3 cm (5' 11) 11/24/2023 6:11 PM CDT Body Mass Index 29.85 11/24/2023 6:11 PM CDT Plan of Treatment Health Maintenance Due Date Last Done Comments Hepatitis C Screening 1972 Prostate Cancer Screening-PSA 1972 Hepatitis B Screening 1990 Zoster Vaccine (1 of 2) 2022 Depression Screening 03/23/2024 03/23/2023, 08/12/19 19 Regular Well Visit/Exam 18-64 03/23/2024 03/23/2023, 08/11/2018 Influenza Vaccine (#1) 2024 4, 11/21/2019, 02/05/2018, Additional history exists Colon Cancer Screening-Colonoscopy 04/16/2033 04/16/2023 DTaP/Tdap/Td Vaccine (4 - Td or Tdap) 11/05/2033 11/06/2023, 03/23/2023, 01/30/2009, Additional history exists Pneumococcal vaccine <65 Aged Out No longer eligible based on patient's age to complete this topic Medical Devices Implanted Type Area Big Data Developer Device Identifier Shelf Expiration Date Model / Serial / Lot [employer] [id number] Ams 700 Kit Accessory Penile Prosthesis - Sna - [id number] Implanted:Qty : 1 on 05/10/2020 by Faustino Ojeda MD at [facility] Other - see comments N/A: Penis [employer] Maya [id number] 02/06/2025 [id number] / NA / [id number] Description:IMPLANTABLE ACCE SSORY PARTS [employer] [id number] Conceal Low Profile [place] 100ml Prosthesis Inhibizone Sterile Latex Free - Sna - [id number] Implanted:Qty : 1 on 05/10/2020 by Faustino Ojeda MD at [facility] Other - see comments N/A: Penis [employer] Maya [id number] 03/23/2022 [id number] / NA / [id number] [employer] Maya [id number] Prosthesis Penile Ams 700cx Ms Pump 21cm Preconnect 2 Cyl - [id number] Implanted:Qty : 1 on 05/10/2020 by Faustino Ojeda MD at [facility] N/A: Penis [employer] Maya [id number] 01/10/2022 [id number] / / [id number] Procedures Procedure Name Priority Date/Time Associated Diagnosis Comments COLONOSCOPY 04/16/2023 11:59 AM SALVAGER HELPER from Last 3 Months or Most Recently Relevant to Health Maintenance Results * COLONOSCOPY (04/16/2023 11:59 AM SALVAGER HELPER) Anatomical Region Laterality Modality Other Narrative Procedure Note Jesu Alves DO - 04/16/2023 11:59 AM CST [facility] END[facility]COPY Patient Name: Shakeel Hoyt Procedure [...] The scope was passed under direct vision.The [id number] colonoscope was introduced through theanus and advanced [...] On: 04/16/2023 11:59 AM Recognized by the [place] [employer] for promoting quality in endoscopy Jesu Alves DO ENDOSCOPY PROCEDURES Fin al Result from Last 3 Months or Most Recently Relevant to Health Maintenance Insurance AETNA [facility] OTHER Address: [facility] [address] [place] [address] IDPA MEDICARE IDSC Advance Directives For more information, please contact: [phone] * Full Code (Latest Code Status on File) Date Activated Date Inactivated Comments 11/06/2023 7:41 AM 11/09/2023 3:42 PM * Full Code Date Activated Date Inactivated Comments 12/13/2022 6:22 PM 12/15/2022 9:38 PM Care Teams Bobbin Sorter Relationship Specialty Start Date End Date Unknown, Notinfile PCP - General 12/22/23
[2024-11-11 12:53] LABS: Hematocrit 43.7 % (40.0-54.0); Hemoglobin 14.3 g/dL (14.0-18.0); Immature Granulocyte Percent A 0.3 % (0.0-0.0); Lymphocytes Absolute Auto 3.17 K/mm3 (1.10-4.50); Mean Corpuscular HGB Conc 32.7 g/dL (32-36); Mean Corpuscular Hemoglobin 29.5 pg (27.0-31.0); Mean Corpuscular Volume 90.1 fL (78.0-102.0); Nucleated Red Blood Cells Absolute Auto 0.00 K/mm3 (0.00-0.00); Nucleated Red Blood Cells Perc 0.0 % (0-0.0); Platelet Count Result 465 K/mm3 (150-420); Red Blood Count 4.85 M/mm3 (4.70-6.10); White Blood Count 12.8 K/mm3 (4.8-10.8)
[2024-11-11 13:00] VITALS: BP 146/96; PULSE 96; RESP 17; O2SAT 98
[2024-11-11 13:05] LABS: Alanine Aminotransferase 23 U/L (6-50); Albumin Level 4.4 g/dL (3.5-5.1); Alkaline Phosphatase 87 U/L (38-126); Anion Gap 9 mmol/L (4-12); Aspartate Amino Transferase 28 U/L (17-59); Bilirubin,Total 0.5 mg/dL (0.2-1.3); Blood Urea Nitrogen 8 mg/dL (9-20); Calcium 9.3 mg/dL (8.4-10.2); Carbon Dioxide 27 mmol/L (22-30); Chloride 106 mmol/L (98-107); Estimated CRCL calculation 108 ml/min; Estimated Glomerular Filt Rate > 60; Glucose 124 mg/dL (65-110); Osmolality Calculated 293 mOsm/kg (285-295); Potassium 3.6 mmol/L (3.4-5.0); Sodium 142 mmol/L (137-145); Total Protein 7.5 g/dL (6.3-8.2)
[2024-11-11 13:10] LABS: Lipase 48 U/L (23-300)
[2024-11-11 13:12] LABS: INR 0.9; Partial Thromboplastin Time 27.7 Sec (23.9-30.70); Prothrombin Time 10.4 Seconds (9.50-12.1)
--- OUTSIDE RECORDS SUMMARY | 2024-11-11 13:12 | XMS_ITS | Encounter Summary ---
Author Organization [facility] Facility Care Team Providers Care Insole Department Worker Name Role Phone Jesu Alves DO Primary Care Provider + Ramana Stahl MD Primary Care Provide r Mahendra Song DO Primary Care Provider Unknown, Notinfile Primary Care Provider Unavail able Encounter Details Date Type Department Care Team (Latest Contact Info) Description 02/25/2018 Orders Only [facility] CLINCONV Provider, MD Huy [address] [place] [id number] Social History Tobacco Use Types Packs/Day Years Used Date Smoking Tobacco: Never Assessed Sex and Gender Information Value Date Recorded Sex Assigned at Not on file Legal Sex Male 3: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
[2024-11-11 13:14] LABS: NT Pro B Type Natriuretic Pept < 20 pg/mL (19.9-100)
--- OUTSIDE RECORDS SUMMARY | 2024-11-11 13:14 | XMS_ITS | Clinical Summary ---
Author Organization [facility] Address [address] [place] [address] Care Team Providers Care Installation Supervisor Name Role Phone Unknown, Notinfile Primary Care [...] CT hand showed cellulitis w/ abscess/fluid collection. [facility] ED attempted drainage but got no fluid return, transferred to [facility] for plastics evaluation. 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 Assessment & Plan (03/23/2023 1:53 PM SOFTWARE ENGINEER BACKEND): Not at goal - has not had [...] often do you attend chur ch or yazidi services? Never 12/15/2022 Do you belong to any clubs o r organizations such as sabianist groups, unions, fraternal or athletic groups, or [...] place to sleep or slept in a senior care (including now)? No 12/15/2022 Personal Safety Answer Date Recorded Have you ever been in or are you currently in a harmful physical or emotional relationship or is someone making you feel afraid or unsafe? Denies 11/24/2023 Sex and Gender Information Value Date Recorded Sex Assigned at Not on file Legal Sex Male 3:13 AM SOFTWARE ENGINEER BACKEND Gender Identity Not on file Sexual Orientation [...] this topic Medical Devices Implanted Type Area Manager Practice Device Identifier Shelf Expiration Date Model / Serial / Lot MSU [employer] [id number] Ams 700 Kit Accessory Penile Prosthesis - Sna - [id number] Implanted:Qty : 1 on 05/10/2020 by Faustino Ojeda MD at [facility] Other - see comments N/A: Penis [employer] [id number] 02/06/2025 [id number] / NA / [id number] Description:IMPLANTABLE ACCE SSORY PARTS [employer] [id number] Conceal Low Profile Bude 100ml Prosthesis Inhibizone Sterile Latex Free - Sna - [id number] Implanted:Qty : 1 on 05/10/2020 by Faustino Ojeda MD at [facility] Other - see comments N/A: Penis [employer] Maya [id number] 03/23/2022 [id number] / NA / [id number] [employer] [id number] Prosthesis Penile Ams 700cx Ms Pump 21cm Preconnect 2 Cyl - [id number] Implanted:Qty : 1 on 05/10/2020 by Faustino Ojeda MD at [facility] N/A: Penis [employer] Maya [id number] 01/10/2022 [id number] 2 / / [id number] Procedures Procedure Name Priority Date/Time Associated Diagnosis Comments COLONOSCOPY 04/16/2023 11:59 AM SOFTWARE ENGINEER BACKEND from Last 3 Months or Most Recently Relevant to Health Maintenance Results * COLONOSCOPY (04/16/2023 11:59 AM SOFTWARE ENGINEER BACKEND) Anatomical Region Laterality Modality Other Narrative Procedure Note Jesu Alves DO - 04/16/2023 11:59 AM CST [facility] Patient Name: Shakeel Hoyt Procedure Date: 04/16/2023 11:59 AM Date of : 1970 Admit Type: Outpatient Age: 52 Gender: Male Attending MD: Jesu Alves D.O. Room: [facility] ROOM 05 Note Status: Finalized Procedure: [...] The scope was passed under direct vision.The [id number] colonoscope was introduced through theanus and advanced [...] On: 04/16/2023 11:59 AM Recognized by the [employer] for promoting quality in endoscopy Jesu Alves DO ENDOSCOPY PROCEDURES Fin al Result from Last 3 Months or Most Recently Relevant to Health Maintenance Insurance [employer] [facility] OTHER Address: [facility] [address] [place] [address] [employer] MEDICARE [place] Advance Directives For more information, please contact: [phone] * Full Code (Latest Code Status on File) Date Activated Date Inactivated Comments 11/06/2023 7:41 AM 11/09/2023 3:42 PM * Full Code Date Activated Date Inactivated Comments 12/13/2022 6:22 PM 12/15/2022 9:38 PM Care Teams Installation Supervisor Relationship Specialty Start Date End Date Unknown, Notinfile PCP - General 12/22/23
[2024-11-11 13:22] LABS: Troponin I < 0.012 ng/mL (0.000-0.034)
[2024-11-11 13:30] VITALS: BP 136/90; BP 137/90; PULSE 96; RESP 17; TEMP 36.8; O2SAT 97
== END 2024-11-11 13:30 | disposition home or self-care (01) ==
PROVIDERS: Emergency Provider Emergency Medicine; PCP Family Medicine
DX: R07.89 Other chest pain (principal)
CPT/HCPCS: 36415; 71046; 80053; 83690; 83880; 84484; 85025; 85380; 85610; 85730; 93005; 99284